=== PATIENT | male | born 1930 | race Caucasian/White ===

== ENCOUNTER 2017-06-12 12:04 | Outpatient (CLI) | payer MEDICARE ==
[2017-06-12 14:16] LABS: Hematocrit 41.3 % (42.0-52.0); Mean Platelet Volume 7.2 fL (7.4-10.4); Red Blood Cell (RBC) Count 4.13 mill/uL (4.70-6.10); White Blood Cell (WBC) Count 6.3 thou/uL (4.8-10.8)
[2017-06-12 14:25] LABS: PTT 35.1 SEC (22.9-36.1); Prothrombin Time 14.2 SEC (12.0-14.7)
[2017-06-12 14:43] LABS: ALT (SGPT) 27 U/L (8-55); AST (SGOT) 22 U/L (5-34); Alkaline Phosphatase 103 U/L (40-150); Anion Gap 10 mmol/L (10-20); BUN (Urea Nitrogen) 17 mg/dL (8.4-25.7); Bilirubin, Total 0.5 mg/dL (0.2-1.2); Calc. Creatinine Clearance 0 mL/min (70-130); Calcium 9.8 mg/dL (7.8-10.44); Carbon Dioxide 29 mmol/L (23-31); Chloride 107 mmol/L (98-107); Estimated GFR-MDRD 73; Protein, Total 6.7 g/dL (5.8-8.1)
== END 2017-06-12 12:05 | disposition home or self-care (01) ==
LOC: LABBT 12:04
PROVIDERS: ATTEND Internal Medicine Cardiovascular Disease
DX: Z01.818 Encounter for other preprocedural examination (principal); R94.30 Abnormal result of cardiovascular function study, unspecified
CPT/HCPCS: 80053; 85027; 85610; 85730; 93005; 93010

== ENCOUNTER → 2017-06-15 | Day surgery (SDC) | payer MEDICARE ==
[2017-06-12 12:26] VITALS: BMI 30.5
[~2017-06-15] MED LIST: Diazepam 5 MG TAB ONE; Heparin 10,000 UNITS/1 ML VIAL ONE; Heparin 1000 UNIT/NS 500ML(OR) 1,000 ML ONE; Iopamidol 370 76% 100 ML VIAL ONE; Nitroglycerin 100MG/250ML BOT 250 ML ONE; Sodium Chloride 0.9% 1,000 ML IV SCH; Verapamil 5 MG/2 ML VIAL ONE
== END ==
LOC: CCL 05:46
PROVIDERS: ATTEND Internal Medicine Cardiovascular Disease
DX: I47.2 Ventricular tachycardia (principal); I10 Essential (primary) hypertension; R07.9 Chest pain, unspecified; E78.5 Hyperlipidemia, unspecified; F32.9 Major depressive disorder, single episode, unspecified; Z88.5 Allergy status to narcotic agent; Z88.8 Allergy status to other drugs, medicaments and biological substances; Z79.899 Other long term (current) drug therapy; Z98.890 Other specified postprocedural states
CPT/HCPCS: 33284; 76942; 80061; 93454; 93798; C1760; C1769; 36415; J1644

== ENCOUNTER 2017-06-19 08:30 | Inpatient (IN) | payer MEDICARE ==
[2017-06-22] MEDS ORDERED: Midazolam HCl 5 mg/5 ml Vial ONE (06:33)
[2017-06-22] MEDS ORDERED: Fentanyl 100 MCG/2 ML VIAL ONE (06:33)
[2017-06-22] MEDS ORDERED: Vecuronium 10 MG VIAL ONE ×2 (06:34→15:40)
[2017-06-22] MEDS ORDERED: Dexmedetomidine 200 MCG/2 ML VIAL ONE (06:34)
[2017-06-22] MEDS ORDERED: Albumin 5% 500 ML ONE ×2 (06:37→10:56)
[2017-06-22] MEDS ORDERED: Heparin 10,000 UNITS/1 ML VIAL 30,000 UNITS in Sodium Chloride 0.9% 1,000 ML FS SCH (06:45)
[2017-06-22] MEDS ORDERED: CEFAZOLIN/Water 2 GM/20 ML SYRINGE ONE (07:21)
[2017-06-22] MEDS ORDERED: FLU VACC TS2017-18 (>65YR) 0.5 ML SYRINGE IM ONE (10:45)
[2017-06-22] MEDS ORDERED: Insulin Regular 300 UNITS/3 ML VIAL ONE (11:19)
--- NOTE | 2017-06-22 12:28 | OP ---
PREOPERATIVE DIAGNOSIS: Coronary artery disease. POSTOPERATIVE DIAGNOSIS: Coronary artery disease. PROCEDURES: Coronary artery bypass graft x5, KIMBALL to a small 1.25 mm LAD, saphenous vein graft small to a 1.25 mm diagonal, saphenous vein graft, slightly better to the 1.5 mm OM 2, saphenous vein carole t to OM3, saphenous vein graft to distal left PDA 1.5 mm. SURGEON: Irving Gilbert M.D. GROCERY CARRIER: Ace Fung M.D. TRANSFUSION: None. PROCEDURE IN DETAIL: After adequate anesthesia had been obtained, the patient was prepped and draped and I initially performed an endovascular vein harvest of the left greater saphenous vein. The vein was rather small in the distal half of the catheter and it was a bifurcated system and so I cut down on the more superficial system and harvested it as well; however, it did not yield much of a vein se gment. Dr. Fung then arrived and did an open greater saphenous vein harvest of the right thigh for 1 conduit and then a harvested vein from the right lower leg at first and second conduit. Simultane ously, I performed a median sternotomy, harvesting the left internal mammary artery. The patient was heparinized, the mammary passed posterior to the thymus gland after being divided distally and treat ed with papaverine. Aorta and right atrium were cannulated. Cardiopulmonary bypass was begun. Vess els were inspected for grafting. The aorta was cross-clamped and a liter of [place] cardioplegic so lution was given. Following this, all distal anastomoses were completed. Partial occluding clamp wa s placed and 3 proximal anastomoses were performed on the aortic root and marked with rings. The OM3 graft was then anastomosed to the side of the left PDA vein graft near the acute margin of the heart . The patient was then weaned from cardiopulmonary bypass, cannulas were removed, and protamine was given systemically. Following this, the mediastinum was inspected for bleeding and two chest drains placed and the sternum was reapproximated with #7 interrupted wire using vancomycin paste on the ster nal edges, platelet-enriched blood, and platelet-poor plasma. Subcutaneous tissue and skin were clos ed in layers.
[2017-06-22] MEDS ORDERED: Norepinephrine 8 MG/0.9% NS 250 ML IVPB PRN (12:37)
[2017-06-22] MEDS ORDERED: Mag-Al 1200 mg/1200 mg/30 ML UDCUP PO PRN (12:37)
[2017-06-22] MEDS ORDERED: DOPamine 400 MG/D5W 250 ML 250 ML IVPB PRN (12:37)
[2017-06-22] MEDS ORDERED: Post-Op Insulin Drip Protocol IVPB ONE (12:37)
[2017-06-22] MEDS ORDERED: hydrALAZINE 20 MG/ML VIAL SLOW IVP PRN (12:37)
[2017-06-22] MEDS ORDERED: Fentanyl 100 MCG/2 ML VIAL SLOW IVP PRN ×2 (12:37)
[2017-06-22] MEDS ORDERED: Hetastarch 6% 500 ML 500 ML IVPB PRN (12:37)
[2017-06-22] MEDS ORDERED: Bisacodyl 10 MG SUPP PR PRN (12:37)
[2017-06-22] MEDS ORDERED: Guaifenesin DM 100-10/5 ML UDCUP PO PRN (12:37)
[2017-06-22] MEDS ORDERED: Morphine 4 MG/ML VIAL SLOW IVP PRN (12:37)
[2017-06-22] MEDS ORDERED: Bisacodyl 5 MG TAB PO PRN (12:37)
[2017-06-22] MEDS ORDERED: Dextrose 50% Abboject 50 ML SYRINGE SLOW IVP PRN (12:50)
[2017-06-22] MEDS ORDERED: Dextrose 5% in Water 1,000 ML IV PRN (12:50)
[2017-06-22 13:52] LABS: PTT 34.8 SEC (22.9-36.1); Prothrombin Time 17.6 SEC (12.0-14.7)
[2017-06-22 13:53] LABS: Oxyhemoglobin 95.4 % (94.0-97.0); Sodium 142 mmol/L (135-148)
[2017-06-22 13:59] LABS: Mechanical Tidal Volume 500 ml; Mode SIMV.PSV; Modified Allen's Test NOT DONE; Pressure Support 10 cmH2O; Vent YES
[2017-06-22 14:05] LABS: Anion Gap 5 mmol/L (10-20); BUN (Urea Nitrogen) 19 mg/dL (8.4-25.7); Calc. Creatinine Clearance 84 mL/min (70-130); Calcium 8.2 mg/dL (7.8-10.44); Carbon Dioxide 26 mmol/L (23-31); Chloride 114 mmol/L (98-107); Estimated GFR-MDRD 87
[2017-06-22] MEDS ORDERED: niCARdipine HCl 50 MG in Sodium Chloride 0.9% 250 ML 230 ML IVPB PRN (14:15)
[2017-06-22 14:17] LABS: #Eosinphils 0.1 thou/uL (0.0-0.7); #Lymphocytes 1.2 thou/uL (1.20-3.40); #Monocytes 0.8 thou/uL (0.11-0.59); #Neutrophils 6.4 thou/uL (1.40-6.50); %Basophils 0.5 % (0.0-1.0); %Lymphocytes 14.3 % (21.0-51.0); %Monocytes 9.8 % (0.0-10.0); Hematocrit 29.4 % (42.0-52.0); Mean Platelet Volume 6.9 fL (7.4-10.4); Red Blood Cell (RBC) Count 2.95 mill/uL (4.70-6.10); White Blood Cell (WBC) Count 8.6 thou/uL (4.8-10.8)
[2017-06-22] MEDS: Sodium Chloride 0.9% 1,000 ML IV SCH ×2 (14:21→21:10)
[2017-06-22] MEDS: Potassium Chloride 20 MEQ/100 ML PREMIX BAG IVPB PRN ×2 (14:21→20:44)
[2017-06-22] MEDS: Insulin Regular 300 UNITS/3 ML VIAL SC PRN ×3 (15:10→23:21)
[2017-06-22] MEDS: CEFAZOLIN/Water 2 GM/20 ML SYRINGE SLOW IVP SCH ×2 (15:11→23:21)
[2017-06-22 15:19] LABS: Oxyhemoglobin 97.5 % (94.0-97.0); Sodium 141 mmol/L (135-148)
[2017-06-22 15:19] LABS: Oxyhemoglobin 97.5 % (94.0-97.0); Sodium 141 mmol/L (135-148)
[2017-06-22 15:19] LABS: Base Excess 0.8 mEq/L (0 (+/- 2.5)); O2 Content (venous) 9.6 VOL% (12.5-17.5); pH (venous) 7.38 (7.35-7.45)
[2017-06-22 15:19] LABS: Oxyhemoglobin 97.8 % (94.0-97.0); Sodium 140 mmol/L (135-148)
[2017-06-22 15:19] LABS: Oxyhemoglobin 97.7 % (94.0-97.0); Sodium 140 mmol/L (135-148)
[2017-06-22] MEDS ORDERED: Nitroglycerin 50 MG/250 ML BOT ONE (15:40)
[2017-06-22] MEDS ORDERED: Lidocaine 1% PF 5 ML VIAL ONE (15:40)
[2017-06-22] MEDS ORDERED: Metoprolol Tartrate 5 MG/5 ML VIAL ONE (15:40)
[2017-06-22] MEDS ORDERED: PHENYLEPHRINE-NS 100 MCG/ML 10 ML SYRINGE ONE (15:40)
[2017-06-22] MEDS ORDERED: Aminocaproic Acid 5 GM/20 ML VIAL ONE (15:40)
[2017-06-22] MEDS ORDERED: Heparin 30,000 units/30 ml VIAL ONE (15:40)
--- NOTE | 2017-06-22 16:17 | RAD ---
SINGLE VIEW OF THE CHEST: Comparison: 02-06-17 History: Status post open heart surgery. FINDINGS: Single view of the chest shows an enlarged but stable cardiomediastinal silhouette. The patient is st atus post sternotomy. The pacemaker is unchanged in position. The patient is status post CABG. There is a right subclavian central venous catheter with its tip in the superior vena cava. An endotracheal tube is seen with its tip at the lower border of the clavicles. A mediastinal drain is seen. There a ppears to be a small left pleural effusion. IMPRESSION: 1. Appropriate position of lines and tubes status post sternotomy. 2. Small left pleural effusion. POS: [facility]
[2017-06-22] MEDS: HYDROcodone/Acetaminophen 5/325 mg Tablet PO PRN ×3 (18:19→22:09)
[2017-06-22 18:23] LABS: Hematocrit 32.1 % (42.0-52.0)
[2017-06-22 18:23] LABS: Mode CPAP; Modified Allen's Test NOT DONE; Oxyhemoglobin 95.4 % (94.0-97.0); Sodium 141 mmol/L (135-148); Vent YES
[2017-06-22] MEDS: Famotidine/PF 20 mg/2ml Vial SLOW IVP SCH (20:14)
[2017-06-23] MEDS: HYDROcodone/Acetaminophen 5/325 mg Tablet PO PRN ×5 (01:47→21:19)
[2017-06-23] MEDS: Sodium Chloride 0.9% 1,000 ML IV SCH ×2 (02:03→09:00)
[2017-06-23 04:50] LABS: #Lymphocytes 1.3 thou/uL (1.20-3.40); %Basophils 0.1 % (0.0-1.0); %Lymphocytes 12.3 % (21.0-51.0); %Monocytes 9.5 % (0.0-10.0); Hematocrit 29.2 % (42.0-52.0); Mean Platelet Volume 7.4 fL (7.4-10.4); White Blood Cell (WBC) Count 10.3 thou/uL (4.8-10.8)
[2017-06-23 05:05] LABS: Anion Gap 8 mmol/L (10-20); BUN (Urea Nitrogen) 23 mg/dL (8.4-25.7); Calc. Creatinine Clearance 64 mL/min (70-130); Calcium 8.1 mg/dL (7.8-10.44); Carbon Dioxide 23 mmol/L (23-31); Chloride 112 mmol/L (98-107); Estimated GFR-MDRD 64
[2017-06-23] MEDS: Insulin Regular 300 UNITS/3 ML VIAL SC PRN ×4 (05:14→17:13)
--- NOTE | 2017-06-23 08:04 | RAD ---
PORTABLE SEMI UPRPIGHT CHEST: History: 86-year-old male with post op open heart. Comparison: 06-22-17 FINDINGS: Poor inspiration. Endotracheal tube has been removed. Right subclavian catheter and chest tubes in pl radha. Stable patchy bibasilar pleural and parenchymal opacity changes, worse on the left side, evidenc e for post-operative change. No pneumothorax or confluent pneumonia, or other acute process. IMPRESSION: Stable post-operative changes. Continued short term follow up. POS: [facility]
[2017-06-23] MEDS: Aspirin 325 MG TAB PO SCH (08:07)
[2017-06-23] MEDS: CEFAZOLIN/Water 2 GM/20 ML SYRINGE SLOW IVP SCH (08:09)
[2017-06-23] MEDS: Famotidine/PF 20 mg/2ml Vial SLOW IVP SCH (08:10)
[2017-06-23] MEDS: Ondansetron HCl/PF 4 MG/2 ML Vial IVP PRN (08:19)
[2017-06-23 09:20] LABS: Mode OR ABG; Vent YES
[2017-06-23 09:22] LABS: Mode OR ABG; Vent YES
[2017-06-23 09:23] LABS: Mode OR ABG; Vent YES
[2017-06-23 09:26] LABS: Mode OR ABG; Vent YES
[2017-06-23 09:29] LABS: Mode OR ABG; Oxyhemoglobin 97.5 % (94.0-97.0); Sodium 143 mmol/L (135-148); Vent YES
[2017-06-23 09:38] LABS: Oxyhemoglobin 96.4 % (94.0-97.0); Sodium 142 mmol/L (135-148)
[2017-06-23 09:40] LABS: Mode OR ABG; Vent YES
[2017-06-23] MEDS ORDERED: levETIRAcetam 500 MG TAB PO SCH (21:00)
[2017-06-23] MEDS ORDERED: Donepezil HCl 10 MG TAB PO SCH (21:00)
[2017-06-23] MEDS: ALPRAZolam 1 MG TAB PO PRN (21:20)
[2017-06-23] MEDS: Atorvastatin Calcium 40 MG TAB PO SCH (21:20)
[2017-06-24] MEDS: Potassium Chloride 10 MEQ TAB PO SCH (08:57)
[2017-06-24] MEDS: Aspirin 325 MG TAB PO SCH (08:57)
[2017-06-24] MEDS: Furosemide 40 MG TAB PO SCH (08:57)
[2017-06-24] MEDS: Metoprolol Tartrate 25 MG TAB PO SCH ×2 (08:57→21:06)
[2017-06-24] MEDS: Tamsulosin HCl 0.4 MG CAP PO SCH (08:58)
[2017-06-24] MEDS ORDERED: clonazePAM 0.5 MG TAB PO SCH (09:00)
--- NOTE | 2017-06-24 16:03 | PRG ---
DATE OF SERVICE: 06/24/2017 SUBJECTIVE: Mr. Keen is doing well. He has been transferred from the ICU to the surveillance monitor [facility]. He has been sitting up in the chair for 2 hours. OBJECTIVE: VITAL SIGNS: Blood pressure 152/78, pulse 86 and temperature 98.7. LUNGS: Clear to auscultation. HEART: Regular rate and rhythm. ABDOMEN: Soft, nontender and nondistended. EXTREMITIES: No edema. IMPRESSION: 1. Coronary artery disease. 2. Status post bypass surgery. RECOMMENDATIONS: Atorvastatin and aspirin will be added. Continue low dose of beta-norman therapy. Ambulate incentive spirometry in rehab.
--- NOTE | 2017-06-24 16:27 | CON ---
DATE OF CONSULTATION: 06/22/2017 REASON FOR CONSULTATION: Assist with cardiac management postop bypass surgery. HISTORY OF PRESENT ILLNESS: Mr. Keen is a very pleasant 86-year-old gentleman with recent angio th at showed a severe 3-vessel disease. He is seen and evaluated by Dr. Irving Gilbert and underwent bypas s surgery today. He is currently intubated. PAST MEDICAL HISTORY: CAD, sick sinus syndrome status post pacemaker, sleep apnea. FAMILY HISTORY: Positive for CAD. MEDICATIONS: Advair, Xanax, Prilosec, amlodipine. ALLERGIES: CODEINE. REVIEW OF SYSTEMS: Ten-point review of systems is reviewed and is as above negative. PHYSICAL EXAMINATION: GENERAL: Patient is a pleasant male who is in no acute distress. The patient appears his stated age . Currently intubated and sedated. VITAL SIGNS: Blood pressure 90/70, pulse 80, respirations 20. NEUROLOGIC: The patient is alert and oriented times 3 with no focal neurologic deficits. HEENT: Sclerae without icterus. Mouth has moist mucous membranes with normal pallor. NECK: No JVD. Carotid upstroke brisk. No bruits bilaterally. LUNGS: Clear to auscultation with unlabored respirations. BACK: No scoliosis or kyphosis. CARDIAC: Regular rate and rhythm with normal S1 and S2. No S3 or S4 noted. No significant rubs, mu rmurs, thrills, or gallops noted throughout the precordium. PMI is not displaced. There is no maggy ternal heave. ABDOMEN: Soft, nontender, nondistended. No peritoneal signs present. No hepatosplenomegaly. No ab normal striae. EXTREMITIES: 2+ femoral and 2+ dorsalis pedis pulses. No cyanosis, clubbing, or edema. SKIN: No gross abnormalities. IMPRESSION: 1. Severe coronary artery disease. 2. Status post bypass surgery. RECOMMENDATIONS: 1. Continue routine ICU care. 2. Add beta norman therapy and statin therapy when stable and extubated. 3. We will follow with you.
--- NOTE | 2017-06-24 20:07 | CON ---
DATE OF CONSULTATION: 06/24/2017 REFERRING PHYSICIAN: Irving Gilbert M.D. REASON FOR CONSULTATION: Altered mental status. HISTORY OF PRESENT ILLNESS: Mr. Keen is a pleasant 86-year-old male is being consulted f or evaluation of altered mental status. History is obtained from who was present at bedside. Maya berry reports that he was found to have coronary blockages for which he has undergone a 5-vessel bypass surgery. On yesterday while in ICU, he was given Woodstock for pain. After having Woodstock, he started rinaldi ving hallucinations, where he saw people coming in with guns and trying to steal money and embezzle p eople. This continued on for all night. It has improved over time. She still feels that he is slig htly confused, but it is better compared to last night. She said that he has had episodes of confusi on when he was given Woodstock and asked that he is not given Woodstock any more. Currently, patient does no t complaint of any headache, vision changes, numbness, tingling. PAST MEDICAL HISTORY: Significant for hypertension, coronary artery disease, hyperlipidemia, GERD, d epression. PAST SURGICAL HISTORY: Significant for right knee replacement, left knee surgery, pacemaker placemen t and most recent coronary artery bypass surgery. SOCIAL HISTORY: Denies smoking, alcohol use, or illicit drug use. He is . FAMILY HISTORY: Noncontributory. CURRENT MEDICATIONS: Please review MAR. ALLERGIES: Include MORPHINE AND CODEINE. REVIEW OF SYSTEMS: As mentioned in the HPI, otherwise negative. PHYSICAL EXAMINATION: VITAL SIGNS: Blood pressure of 129/60, pulse of 89, temperature of 97.7, respirations of 18, O2 sats of 95% on room air. GENERAL: Well-developed, well-nourished male, in no apparent distress. RESPIRATORY: Clear to auscultation bilaterally. CARDIOVASCULAR: Regular rate and rhythm. NEUROLOGIC: Mental status: The patient is awake, alert, oriented x3. Speech and language: Fluent speech. Cranial nerves: Pupils are 3 mm and reactive. Visual castellanos are intact. External muscles are intact. No nystagmus. Face is symmetric. Motor exam showed normal tone and bulk with 5/5 stren gth in both lower extremities. Sensory: Sensation is intact and symmetric. Deep tendon reflexes 1- 2+ reflexes in both upper and lower extremities. Babinski: Plantar responses flexion bilaterally. LABORATORY DATA: Reviewed, which included CBC, BMP, which is significant for hemoglobin of 9.8, crys tocrit 29.2, glucose of 136, otherwise unremarkable. IMPRESSION: 1. Altered mental status, likely medication induced. 2. Recent coronary artery bypass graft surgery. Mr. Keen is a pleasant 86-year-old male who has undergone coronary artery bypass graft head [facility] and had an episode of confusion after he was given Woodstock. He has had reaction to Woodstock in the past with similar episodes of confusion that was, according to . At this time, this episode is l ikely medication induced. I do not think that Keppra is the cause for his symptoms. I would restart him back on Keppra at his home dose. No further neurological workup needed from my standpoint. Thank you for consultation.
[2017-06-24] MEDS: levETIRAcetam 500 MG TAB PO SCH (21:03)
[2017-06-24] MEDS: Atorvastatin Calcium 40 MG TAB PO SCH (21:03)
[2017-06-24] MEDS: ALPRAZolam 1 MG TAB PO PRN (21:04)
[2017-06-24] MEDS: Acetaminophen 325 MG TAB PO PRN (21:06)
--- NOTE | 2017-06-24 21:50 | PRG ---
DATE OF SERVICE: 06/23/2017 SUBJECTIVE: Mr. Keen is doing well. He continues to have the chest tube in place. He is still in the ICU, but has been extubated. OBJECTIVE: VITAL SIGNS: Blood pressure 120/70, pulse 80, respirations 20. LUNGS: Clear to auscultation. CARDIAC: Regular rate and rhythm. ABDOMEN: Soft, nontender, nondistended. EXTREMITIES: No edema. IMPRESSION: 1. Severe coronary artery disease. 2. Status post bypass surgery. RECOMMENDATIONS: 1. Add beta norman therapy and statin treatment. 2. Up in the chair t.i.d.
[2017-06-25] MEDS: levETIRAcetam 500 MG TAB PO SCH ×2 (07:58→21:03)
[2017-06-25] MEDS: Tamsulosin HCl 0.4 MG CAP PO SCH (07:58)
[2017-06-25] MEDS: Aspirin 325 MG TAB PO SCH (07:58)
[2017-06-25] MEDS: Metoprolol Tartrate 25 MG TAB PO SCH ×2 (07:59→21:05)
[2017-06-25] MEDS: Potassium Chloride 10 MEQ TAB PO SCH (07:59)
[2017-06-25] MEDS: Furosemide 40 MG TAB PO SCH (07:59)
[2017-06-25] MEDS: Ondansetron HCl/PF 4 MG/2 ML Vial IVP PRN (09:15)
[2017-06-25 14:51] VITALS: BMI 29.4
[2017-06-25] MEDS ORDERED: Furosemide 20 MG/2 ML VIAL SLOW IVP SCH (16:30)
--- NOTE | 2017-06-25 17:15 | PRG ---
DATE OF SERVICE: 06/25/2017 SUBJECTIVE: Mr. Keen has had increased confusion. His states he is allergic to NARCOTICS. Lizbeth merrill was given a narcotic last evening. She attributed to this confusion to the medication. He denies chest pain or pressure. He is not ambulating today with physical therapy. He remains in sinus rhyth m. OBJECTIVE: VITAL SIGNS: Blood pressure 147/62, pulse 98, temperature 98.3. LUNGS: Clear to auscultation. CARDIAC: Regular rate and rhythm. ABDOMEN: Soft, nontender, nondistended. EXTREMITIES: No edema. IMPRESSION: 1. Severe coronary artery disease. 2. Status post bypass surgery. 3. Delirium. RECOMMENDATIONS: Delirium likely multifactorial given his age of 86 in addition to a recent narcotic use. Narcotic had been discontinued with stress ambulation. Rehab has been consulted and has evalu ated Mr. Keen today with their conclusion pending.
[2017-06-25] MEDS: Atorvastatin Calcium 40 MG TAB PO SCH (21:01)
[2017-06-25] MEDS: ALPRAZolam 1 MG TAB PO PRN (21:24)
[2017-06-26] MEDS: Aspirin 325 MG TAB PO SCH (08:09)
[2017-06-26] MEDS: levETIRAcetam 500 MG TAB PO SCH ×2 (08:10→20:22)
[2017-06-26] MEDS: Furosemide 40 MG TAB PO SCH (08:10)
[2017-06-26] MEDS: Losartan Potassium 25 MG TAB PO SCH (08:10)
[2017-06-26] MEDS: Potassium Chloride 10 MEQ TAB PO SCH (08:10)
[2017-06-26] MEDS: Metoprolol Tartrate 25 MG TAB PO SCH (08:10)
[2017-06-26] MEDS: Tamsulosin HCl 0.4 MG CAP PO SCH (08:10)
[2017-06-26] MEDS ORDERED: Amiodarone HCl 150 MG, Admixture Fee 1 EACH in Dextrose 5% in Water 100 ML IVPB SCH ×3 (19:30)
[2017-06-26] MEDS: Amiodarone HCl 450 MG, Admixture Fee 1 EACH in Dextrose 5% in Water 250 ML IVPB SCH ×3 (19:55)
[2017-06-26 20:17] LABS: ALT (SGPT) 12 U/L (8-55); AST (SGOT) 27 U/L (5-34); Alkaline Phosphatase 81 U/L (40-150); Bilirubin, Direct 0.4 mg/dL (0.1-0.3); Bilirubin, Total 0.8 mg/dL (0.2-1.2); Magnesium 1.7 mg/dL (1.6-2.6); Protein, Total 5.6 g/dL (5.8-8.1)
[2017-06-26] MEDS: Atorvastatin Calcium 40 MG TAB PO SCH (20:22)
[2017-06-26] MEDS: Metoprolol Tartrate 50 MG TAB PO SCH (20:22)
[2017-06-26 20:38] LABS: Anion Gap 11 mmol/L (10-20); BUN (Urea Nitrogen) 28 mg/dL (8.4-25.7); Calc. Creatinine Clearance 55 mL/min (70-130); Calcium 8.8 mg/dL (7.8-10.44); Carbon Dioxide 25 mmol/L (23-31); Chloride 104 mmol/L (98-107); Estimated GFR-MDRD 53
[2017-06-27] MEDS: Amiodarone HCl 450 MG, Admixture Fee 1 EACH in Dextrose 5% in Water 250 ML IVPB SCH ×6 (02:26→20:06)
[2017-06-27] MEDS: Metoprolol Tartrate 50 MG TAB PO SCH ×2 (09:56→21:01)
[2017-06-27] MEDS: Losartan Potassium 25 MG TAB PO SCH (09:56)
[2017-06-27] MEDS: Aspirin 325 MG TAB PO SCH (09:56)
[2017-06-27] MEDS: Potassium Chloride 10 MEQ TAB PO SCH (09:56)
[2017-06-27] MEDS: Furosemide 40 MG TAB PO SCH (09:56)
[2017-06-27] MEDS: Tamsulosin HCl 0.4 MG CAP PO SCH (09:57)
[2017-06-27] MEDS: levETIRAcetam 500 MG TAB PO SCH ×2 (09:57→21:01)
[2017-06-27] MEDS: Atorvastatin Calcium 40 MG TAB PO SCH (21:01)
[2017-06-28] MEDS: ALPRAZolam 1 MG TAB PO PRN (01:37)
[2017-06-28] MEDS: Potassium Chloride 10 MEQ TAB PO SCH (09:13)
[2017-06-28] MEDS: Losartan Potassium 25 MG TAB PO SCH (09:14)
[2017-06-28] MEDS: levETIRAcetam 500 MG TAB PO SCH ×2 (09:14→19:56)
[2017-06-28] MEDS: Metoprolol Tartrate 50 MG TAB PO SCH ×2 (09:14→19:57)
[2017-06-28] MEDS: Aspirin 325 MG TAB PO SCH (09:14)
[2017-06-28] MEDS: Tamsulosin HCl 0.4 MG CAP PO SCH (09:14)
[2017-06-28] MEDS: Furosemide 40 MG TAB PO SCH (09:38)
[2017-06-28] MEDS: Amiodarone HCl 450 MG, Admixture Fee 1 EACH in Dextrose 5% in Water 250 ML IVPB SCH ×3 (12:52)
--- NOTE | 2017-06-28 13:49 | PRG ---
DATE OF SERVICE: 06/28/2017 SUBJECTIVE: I was called back to the room to see Mr. Keen as his was not present when I saw him earlier this morning. Mr. Keen's is very upset because he apparently had some hallucinations last night. She says that he did not know who she was. Mr. Keen cannot hear. With his hearing aids in this morning, I have to literally scream for him to hear anything that I am saying. On questioning, he is oriented to person, place and time at this point. He has no complaints about last night and does not recall any of his interactions with his during the night. She states that she has had to cover up the television because the reflections in the television bother him. He did state that he had some anxiety in the middle of the night due to lights being off and not being able to see. He was given Xanax and apparently this facilitated his hallucinations during the night. I have reassured her that I will go through his medication list and remove all pain medications. She says they do not "dope up" at home, but he does take Xanax on a fairly regular basis. I will leave his Xanax as a p.r.n. She also was upset and wants to discuss the functions of the charge nurse and I told her that I did not have the time to discuss the inner workings of the hospital with her, which made her more upset. She is going to discuss this with the hospital administration at some point. I think his hallucinations are probably sundowning. I have encouraged her to leave the lights on in the bathroom so that he has a night light. Getting him up and moving around will help and getting him out of the hospital is actually the best thing for him at this point. He will not completely improve until he is home back in his usual environment [facility]
[2017-06-28] MEDS: Atorvastatin Calcium 40 MG TAB PO SCH (19:56)
[2017-06-29] MEDS: Losartan Potassium 25 MG TAB PO SCH (09:06)
[2017-06-29] MEDS: Aspirin 325 MG TAB PO SCH (09:06)
[2017-06-29] MEDS: Metoprolol Tartrate 50 MG TAB PO SCH ×2 (09:07→20:03)
[2017-06-29] MEDS: levETIRAcetam 500 MG TAB PO SCH ×2 (09:07→20:04)
[2017-06-29] MEDS: Tamsulosin HCl 0.4 MG CAP PO SCH (09:07)
--- NOTE | 2017-06-29 13:30 | CON ---
DICTATED BY: Lissy Awan Nurse Practitioner DATE OF CONSULTATION: 06/29/2017 CONSULTING PHYSICIAN: Dr. Miguel Holliday REASON FOR CONSULTATION: Sustained ventricular tachycardia. HISTORY OF PRESENT ILLNESS: Mr. Keen is a pleasant 86-year-old gentleman who recently underwent coronary artery bypass grafting on 06/22/2017 after recent coronary angio which revealed severe 3-vessel disease. After his bypass surgery , he went into sustained monomorphic ventricular tachycardia on 06/26/2017 and was started on IV amiodarone. He continued on an amiodarone drip for 2 days and was transitioned to oral amiodarone on 06/28/2017. Of note, the patient has undergone pacemaker implantation earlier this year secondary to sinus node dysfunction and also has history of a first degree AV block. He has also had some postoperative complications of delirium and is currently mentally quite altered and sleeping during the examination. The is present at bedside and was able to answer all questions regarding the recent events and patient care. Review of symptoms was limited given the patient's inability to answer questions given his cognitive deficits. The acknowledged that the patient had not had this arrhythmia prior to his recent past. The pacemaker did find sustained ventricular tachycardia, 1 episode, which prompted the coronary angio which then led to his bypass surgery. The patient has had a stroke in the past , but has not had any recent neurologic events. PAST MEDICAL HISTORY: 1. Severe coronary artery disease. 2. Sick sinus syndrome, status post pacemaker implantation. 3. First degree AV block. 4. Stroke, left-sided weakness. 5. Sleep apnea. FAMILY HISTORY: Positive for coronary artery disease. ALLERGIES: CODEINE and MORPHINE ( states this is an adverse reaction with mental changes). MEDICATIONS: Include amiodarone 400 mg p.o. b.i.d., aspirin 325 mg daily, atorvastatin 40 mg p.o. at bedtime, Keppra 500 mg p.o. b.i.d., losartan 50 mg p.o. daily, metoprolol 50 mg p.o. b.i.d., Metamucil daily. REVIEW OF SYSTEMS: Ten point review of systems was conducted and is negative with the exception of what is mentioned in the HPI. Review of systems was conducted with who is at bedside and was able my questions for most items. PHYSICAL EXAMINATION: VITAL SIGNS: Most recent vital signs; 98.3 degrees Fahrenheit, heart rate 75, respirations 16, oxygen saturation 96% on 4 liters of oxygen via nasal cannula, blood pressure 160/82. GENERAL: The patient is a well-nourished male who is currently sleeping. He appears his stated age. NEUROLOGIC: The patient is currently sleeping, but has had recent hallucinations and acute delirium in the postoperative phase. Unable to do neurologic exam at this time. HEENT: Mucous membranes are moist. Trachea is midline. NECK: Supple. There is no jugular venous distention. There are no carotid bruits. PULMONARY: Lungs are clear to auscultation bilaterally without crackles, wheezes or rhonchi. There is good bilateral excursion. CARDIOVASCULAR: Regular rate and rhythm without murmurs, rubs or gallops. PMI is nondisplaced. ABDOMEN: Soft to palpation without masses or hepatosplenomegaly. INTEGUMENTARY: Device is palpable at the left infraclavicular fossa. The site is well healed without evidence of complication including swelling, streaking or bruising. EXTREMITIES: Palpable pulses bilaterally. Extremities are warm and dry without cyanosis, clubbing or edema. DATABASE: Lab results are from 06/23/2017; WBC 10.3, hemoglobin 9.8, hematocrit 29.2, platelet count 145. PT 17.6, INR 1.4. Chemistry from 2016 reveals sodium 136, potassium 4.1, chloride 104, CO2 25, BUN is 28, creatinine is 1.29, ALT is 12, AST is 27. Chest x-ray on the 06/23/2017 revealed a stable chest with no acute postoperative changes, most recent LVEF estimated at 56% from 06/2011. DEVICE INTERROGATION: The patient has an Advisa DR MRI compatible device. Date of implant was 02/06/2017. At this point, the device is functioning normally with good battery longevity and the lead impedance and capture thresholds are within a normal range. The patient does have documented sustained monomorphic ventricular tachycardia episodes on his interrogation. IMPRESSION: 1. Recurrent sustained monomorphic ventricular tachycardia. This re-occurred 4 days after coronary artery bypass grafting surgery. The patient was initially placed on IV amiodarone and has now transitioned to p.o. dosing. 2. Severe coronary artery disease, now stable after bypass surgery. 3. Acute delirium and confusion. 4. First degree atrioventricular block according to pacemaker interrogation. 5. Medtronic pacemaker in situ, functioning normally. RECOMMENDATIONS: Given the VT epside 4 days out from a recent bypass graft surgery, I think it is reasonable to pursue and recommend an EP study. If VT is inducible we will consider upgrading his current pacemaker to an ICD defibrillator based on MADIT II trila. [place] get LVEF reevaluated as wel by ECHO. If VT is not inducible, would recommend the patient have a LifeVest worn for 3 months and reevaluate. The is in agreement with this plan. The risks and benefits of an EP study and device placement were discussed. The risks for EP study include hematoma or bleeding at the groin access site, bleeding into the pericardial sac, damage to the blood vessel tissues and nerves at the access site, damage to the heart tissue. Complications included with a pacemaker defibrillator implantation include pain, swelling at the site, damage to surrounding tissues, nerves, possible pneumothorax requiring additional chest tube placement, perforation of the heart, arrhythmias, and . The patient's understands the risks and benefits and wishes to proceed with an EP study and upgrade to ICD, BiV if needed based on LVEF. Thank you allowing us to participate in the patient's care. Further suggestions acting as scribe for Dr. Floresita de jesus. [facility]
[2017-06-29] MEDS ORDERED: Heparin 1000 UNIT/NS 500ML(OR) 500 ML ONE (14:33)
--- NOTE | 2017-06-29 15:22 | CON ---
This is Lissy LAST acting as scribe for Dr. Jermain Arroyo DATE OF CONSULTATION: 06/29/2017 at 11:34 a.m. ELECTROPHYSIOLOGY CONSULTATION REFERRING PHYSICIAN: Miguel Holliday M.D. REASON FOR CONSULTATION: Sustained ventricular tachycardia. HISTORY OF PRESENT ILLNESS: Mr. Keen is an 86-year-old male whom we were consulted for given his s ustained ventricular tachycardia. Patient is currently undergoing evaluation for altered mental stat us after recent bypass surgery and history and discussion with the who was at bedside during the evaluation. According to his , the patient initially had a pacemaker implant earlier this year for sick sinus syndrome and was found to have severe three-vessel disease with recent coronary angiog mike. He has undergone a coronary artery bypass grafting on 06/22/[address] Gilbert. Since then, his recovery was initially going very well. He was extubated and has had some delirium issues that have evolved after his bypass. On the 06/26/2017, patient went into sustained monomorphic ventricular ta chycardia and was started on IV amiodarone, which continued for 2 days. He is now currently off the IV amiodarone and was started on oral 400 mg twice a day on 06/28/2017 in the evening. His device wa s interrogated on 06/27/2017 and the report is in the chart. The patient also has a history of first -degree AV block. PAST MEDICAL HISTORY: Include, 1. Severe coronary artery disease. 2. Sick sinus syndrome. 3. Medtronic Advisa DR MRI compatible device in situ. 4. First degree AV block. 5. Sleep apnea. 6. Coronary artery bypass grafting was performed at 06/22/2017. 7. CVA with residual left-sided weakness. ALLERGIES: Include narcotics (adverse reaction according to ). CURRENT MEDICATIONS: List includes Tylenol as needed, Maalox as needed, DuoNeb as needed, Xanax as n eeded, amiodarone 400 mg p.o. b.i.d., aspirin 325 mg p.o. daily, Lipitor 40 mg p.o. at bedtime, Keppr a 500 mg p.o. b.i.d., Cozaar 50 mg p.o. daily, metoprolol 50 mg p.o. b.i.d., Zofran 4 mg as needed, I V sertraline 100 mg p.o. daily, tamsulosin 0.4 mg p.o. daily. SOCIAL HISTORY: According to the , the patient denies tobacco, alcohol use or drug use. He is m arried. FAMILY HISTORY: Noncontributory. REVIEW OF SYSTEMS: Twelve-point review of systems was conducted and is negative with the exception o f what is mentioned in the HPI. The was the source for the review of systems given the patient' s currently delirium. PHYSICAL EXAMINATION: VITAL SIGNS: Include temperature 98.3 degrees Fahrenheit, pulse 75, respirations 20, oxygen saturati on 96% on 4 liters via nasal cannula, blood pressure is 160/82. HEENT: No vision changes or speech changes. CARDIOVASCULAR: Unaware of chest pain or palpitations. denies any progressive swelling in the extremities. PULMONARY: Denies shortness of breath. Recent respiratory illness for productive cough. DICTATION ENDED
[2017-06-29] MEDS: Atorvastatin Calcium 40 MG TAB PO SCH (20:03)
[2017-06-30] MEDS ORDERED: Propofol 200 MG/20 ML VIAL ONE (11:07)
[2017-06-30] MEDS ORDERED: PHENYLEPHRINE-NS 100 MCG/ML 10 ML SYRINGE ONE (11:07)
[2017-06-30] MEDS ORDERED: Fentanyl 100 MCG/2 ML VIAL ONE (13:36)
[2017-06-30] MEDS ORDERED: Heparin 1000 UNIT/NS 500ML(OR) 500 ML ONE (13:48)
[2017-06-30] MEDS ORDERED: Phenylephrine 10 MG/NS 250 ML 250 ML ONE (14:06)
[2017-06-30] MEDS ORDERED: Ondansetron HCl/PF 4 MG/2 ML Vial IVP PRN ×2 (15:24→18:45)
[2017-06-30] MEDS ORDERED: Promethazine HCl 25 MG/ML VIAL SLOW IVP PRN (15:24)
[2017-06-30] MEDS ORDERED: Promethazine HCl 25 MG/ML VIAL IM PRN (15:24)
[2017-06-30] MEDS: Aspirin 325 MG TAB PO SCH (18:34)
[2017-06-30] MEDS: Losartan Potassium 25 MG TAB PO SCH (18:34)
[2017-06-30] MEDS: Tamsulosin HCl 0.4 MG CAP PO SCH (18:35)
[2017-06-30] MEDS: Metoprolol Tartrate 50 MG TAB PO SCH ×2 (18:36→20:15)
[2017-06-30] MEDS: levETIRAcetam 500 MG TAB PO SCH ×2 (18:37→20:16)
[2017-06-30] MEDS ORDERED: Silver Sulfadiazine 1% Cream 50 GM JAR TOP PRN (18:45)
[2017-06-30] MEDS ORDERED: Mag-Al 1200 mg/1200 mg/30 ML UDCUP PO PRN (18:45)
[2017-06-30] MEDS ORDERED: Bisacodyl 5 MG TAB PO PRN (18:45)
[2017-06-30] MEDS ORDERED: Bisacodyl 10 MG SUPP PR PRN (18:45)
[2017-06-30] MEDS ORDERED: diphenhydrAMINE 25 MG CAP PO PRN (18:45)
[2017-06-30] MEDS ORDERED: Nitroglycerin 0.4 MG TAB (25 Tab Bottle) SL PRN (18:45)
[2017-06-30] MEDS: Atorvastatin Calcium 40 MG TAB PO SCH (20:14)
[2017-06-30] MEDS: Acetaminophen 325 MG TAB PO PRN (20:15)
--- NOTE | 2017-06-30 20:26 | CCLSPC ---
DATE OF PROCEDURE: 06/30/2017 REFERRING PHYSICIAN: Miguel Holliday M.D. REASON FOR PROCEDURE: Mr. Keen is an 86-year-old man with prior history of coronary artery disease , nonsustained ventricular tachycardia, who underwent a coronary artery bypass graft surgery due to m ultivessel coronary artery disease this admission. He had sustained ventricular tachyarrhythmia requ iring amiodarone loading over 4 days after the bypass surgery, here for EP surgery and also amiodaron e loading. PROCEDURE IN DETAIL: The patient received deep sedation per Anesthesia specialist. After adequate l evel of sedation achieved, the left femoral vein was prepped, draped, and anesthetized using subcutan eous lidocaine and with ultrasound guidance, the left femoral vein was accessed with a multipurpose n eedle. A 6-Albanian short sheath was introduced through which a 6-Albanian quadripolar catheter was adva nced to the His bundle, the right atrium, and right ventricle position. Pacing, mapping, and recordi ng were obtained in each location. The following findings were noted. Baseline cycle of 622, NJ 112, QRS 95, QT 416, AH 46, HV 43 marcell seconds. The ventricular ------ study was performed using 600 milliseconds drivetrain and 400 millis econds drivetrain with up to 3 ------ which were decremented to the refractory period. Ventricular E RP was established at 600/220 milliseconds. The nonsustained ventricular tachycardia was seen, but s pontaneous termination was noted in each occasion. No VA conduction was seen. Following that case, the pacemaker function was verified. CONCLUSION: 1. Nonsustained ventricular tachycardia inducible after amiodarone loading only. 2. Echo done reveals LVEF of 50%. 3. For now, continue amiodarone loading, consider LifeVest, and wean off amiodarone in 2-[address]-bypass surgery and re-evaluate at that time. POS: [facility]
[2017-06-30] MEDS: Temazepam 15 MG CAP PO PRN ×2 (20:50→23:35)
[2017-07-01] MEDS: Losartan Potassium 25 MG TAB PO SCH (09:40)
[2017-07-01] MEDS: Metoprolol Tartrate 50 MG TAB PO SCH ×2 (09:40→20:23)
[2017-07-01] MEDS: Aspirin 325 MG TAB PO SCH (09:40)
[2017-07-01] MEDS: levETIRAcetam 500 MG TAB PO SCH ×2 (09:40→20:23)
[2017-07-01] MEDS: Tamsulosin HCl 0.4 MG CAP PO SCH (09:40)
--- NOTE | 2017-07-01 12:36 | EKG ---
Test Reason : Blood Pressure : / mmHG Vent. Rate : 080 BPM Atrial Rate : 050 BPM P-R Int : 000 ms QRS Dur : 098 ms QT Int : 442 ms P-R-T Axes : 000 -27 -15 degrees QTc Int : 509 ms Accelerated Junctional rhythm Inferior infarct , age undetermined Prolonged QT Abnormal ECG Confirmed by YANET DERAS ([id number]) on 07/01/2017 12:36:03 PM Referred By: RAMESH Confirmed By:YANET DERAS
[2017-07-01 13:55] LABS: #Eosinphils 0.2 thou/uL (0.0-0.7); #Lymphocytes 1.2 thou/uL (1.20-3.40); #Neutrophils 9.8 thou/uL (1.40-6.50); %Basophils 0.3 % (0.0-1.0); %Eosinophils 1.3 % (0.0-10.0); %Lymphocytes 9.7 % (21.0-51.0); Hematocrit 28.1 % (42.0-52.0); Mean Platelet Volume 6.9 fL (7.4-10.4); Red Blood Cell (RBC) Count 2.77 mill/uL (4.70-6.10); White Blood Cell (WBC) Count 12.1 thou/uL (4.8-10.8)
[2017-07-01 14:22] LABS: ALT (SGPT) 19 U/L (8-55); AST (SGOT) 22 U/L (5-34); Alkaline Phosphatase 93 U/L (40-150); Anion Gap 10 mmol/L (10-20); BUN (Urea Nitrogen) 24 mg/dL (8.4-25.7); Bilirubin, Total 0.5 mg/dL (0.2-1.2); Calc. Creatinine Clearance 49 mL/min (70-130); Calcium 8.9 mg/dL (7.8-10.44); Carbon Dioxide 26 mmol/L (23-31); Chloride 104 mmol/L (98-107); Estimated GFR-MDRD 47; Globulin 3.1 g/dL (2.4-3.5); Protein, Total 5.8 g/dL (5.8-8.1)
--- NOTE | 2017-07-01 16:10 | PRG ---
DATE OF SERVICE: 07/01/2017 SUBJECTIVE: Mr. Keen today is somnolent. His states he has been active up in the chair, and he has undergone rehab. He recently underwent EP study yesterday and was not found to be inducible. LifeVest is recommended. His most recent echo did suggest LVEF 50%. PHYSICAL EXAMINATION: VITAL SIGNS: Blood pressure 119/53, pulse, 64, temperature 97.4. LUNGS: Clear to auscultation. CARDIAC: Regular rate and rhythm. ABDOMEN: Soft, nontender, nondistended. EXTREMITIES: No edema. IMPRESSION: 1. Sustained ventricular tachycardia. 2. Coronary artery disease. 3. Status post bypass surgery. RECOMMENDATIONS: 1. Continue aspirin in addition to metoprolol. Amiodarone 400 mg p.o. b.i.d. has been added. 2. Physical therapy and rehab. 3. Incentive spirometry.
[2017-07-01] MEDS: Atorvastatin Calcium 40 MG TAB PO SCH (20:22)
[2017-07-01] MEDS: Temazepam 15 MG CAP PO PRN (22:53)
--- NOTE | 2017-07-01 22:57 | PRG ---
DATE OF SERVICE: 07/01/2017 SUBJECTIVE: Mr. Keen has been doing well on day after his EP study. He has no chest pains, angina . No further arrhythmias. OBJECTIVE: VITAL SIGNS: Blood pressure 119/53, heart rate 64, respirations 17, temperature 97.4 degrees Fahrenh eit. GENERAL: Alert and oriented man in no apparent distress. NECK: Supple. Jugular veins not distended. CHEST: Coarse, no crackles. CARDIOVASCULAR: Heart sounds are regular to rate and rhythm. No murmur or gallop. ABDOMEN: Benign. Bowel sounds positive. EXTREMITIES: Lower extremities without edema, clubbing or cyanosis. Left groin without hematoma. LABORATORY DATA: White count 12.1, hemoglobin 9.4, platelet count is 383. Electrolytes normal range . BUN is 24, creatinine 1.43. Telemetry strips reveal no recurrence of ventricular arrhythmias. ASSESSMENT AND PLAN: Mr. Keen is a very pleasant 86-year-old man who has underwent a bypass surger y this admission. He had VT prior and after the bypass surgery. He has been loaded with amiodarone. He underwent EP study yesterday revealing no inducible sustained ventricular tachyarrhythmias. For this reason, we will not upgrade his device to an ICD. I do agree with continued amiodarone for supp ression. He may be considered for LifeVest for the next 2-3 months and then I would wean amiodarone at that time. For now, he is stable for discharge and we will see him as an outpatient.
--- NOTE | 2017-07-02 06:33 | PRG ---
DATE OF SERVICE: 07/02/2017 SUBJECRIVE: Ms. Keen is doing well. No current complaints. His confusion appears to continue to wax and wane. OBJECTIVE: CURRENT VITAL SIGNS: Blood pressure 119/53, pulse 65, temperature 98.2. LUNGS: Clear to auscultation. HEART: Regular rate and rhythm. ABDOMEN: Soft, nontender, nondistended. EXTREMITIES: No edema. IMPRESSION: 1. Coronary artery disease. 2. Status post bypass surgery. 3. Ventricular tachycardia. RECOMMENDATIONS: Patient underwent an EP study, it was negative for inducible VT. He does qualify f or a LifeVest. This has been placed. The patient is planning on being discharged to rehabilitation today. Would decrease amiodarone to 400 mg one p.o. q.a.m. x1 month, then decrease to 200 mg one p.o . q.a.m. Continue aspirin, atorvastatin in addition to metoprolol. His LVEF is normal.
[2017-07-02] MEDS: Aspirin 325 MG TAB PO SCH (09:56)
[2017-07-02] MEDS: levETIRAcetam 500 MG TAB PO SCH (09:56)
[2017-07-02] MEDS: Losartan Potassium 25 MG TAB PO SCH (09:56)
[2017-07-02] MEDS: Tamsulosin HCl 0.4 MG CAP PO SCH (09:56)
[2017-07-02] MEDS: Metoprolol Tartrate 50 MG TAB PO SCH (09:57)
[2017-07-02 12:36] VITALS: BP 117/49; TEMP 97.5
--- NOTE | 2017-07-02 12:59 | PRG ---
DATE OF SERVICE: 07/02/2017 REFERRING PHYSICIAN: Dr. Holliday SUBJECTIVE: Mr. Keen is doing well. 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 No palpitations, no dizziness or loss of consciousness noted. OBJECTIVE DATA: VITAL SIGNS: Blood pressure is 119/53, respiration rate 85, the patient is afebrile. GENERAL: He is alert and oriented man in no apparent distress. Continues with blood pressure. NECK: Supple. Jugular veins not distended. CHEST: Coarse, no crackles. Left precordial pacing insertion site is well healed. ABDOMEN: Benign. Bowel sounds positive. EXTREMITIES: With 1+ edema. Midsternal scar is healing well. LABORATORY DATA: No new lab data. This morning telemetry strips reveals sinus rhythm, sinus tachycardia, occasional ventricular pacing . ASSESSMENT AND PLAN: Mr. Keen is a pleasant 86-year-old man with prior history of ventricular tach ycardia, coronary artery disease. He was noted to have VT prior to presentation, but he underwent an ischemic evaluation and required bypass surgery. His monomorphic VT recurred post bypass surgery. He underwent amiodarone loading and subsequent EP study demonstrated no inducible sustained ventricul ar arrhythmia. For this reason, we refrained from ICD upgrade. LVEF also was in the mildly decrease d range only. He does seem to have significant area in the inferoposterior apical segment. Fo r now, we will plan medical management with amiodarone at least the next 3 months. LifeVest might be reducing her chance of recurrence of ventricular arrhythmia events. That has already been organized . I agree with reducing the amiodarone as per Dr. Holliday. I will have to see her back in about 2 -3 months for followup. The plan was discussed with the patient and the .
--- NOTE | 2017-07-02 13:15 | DIS ---
HOSPITAL COURSE: This is an 86-year-old gentleman who was admitted to the hospital for elective darryl nary bypass grafting. He underwent coronary bypass graft x5 to the LAD, diagonal, OM2, OM3 and left PDA. Postoperative course was most notable for sundowning with the patient being quite confused, par ticularly at night. He was seen in consultation by the neurologist who had prescribed a number of me dications for him in regards to this and possible seizure disorder in the recent past. He then had some nonsustained V-tach which actually had occurred prior to hospitalization and he was seen by Dr. Arroyo where he underwent an EP study with no inducible VT. It was recommended that he be discharged w ith a LifeVest and be reevaluated in the future on amiodarone. He will be discharged to rehab probab ly today on amiodarone 400 mg a day, aspirin 325 a day, Lipitor 40 at bedtime, Cozaar 50 daily, metop rolol 50 b.i.d., Flomax 0.4 a day as well as medication for his seizure disorder and dementia. Discharge and follow up instructions have been given.
== END 2017-07-02 14:19 | DRG 236 ==
LOC: SURG A 06-22 06:04 → CCU 06-22 11:46 → 2SE 06-23 22:08
PROVIDERS: ADMIT Thoracic Surgery (Cardiothoracic Vascular Surgery); ATTEND Thoracic Surgery (Cardiothoracic Vascular Surgery)
PROC: 0213099 Bypass Coronary Artery, Four or More Arteries from Left Internal Mammary with Autologous Venous Tissue, Open Approach (ICD-10-PCS; principal; 2017-06-23)
PROC: 06BP0ZZ Excision of Right Saphenous Vein, Open Approach (ICD-10-PCS; 2017-06-23)
PROC: 5A1221Z Performance of Cardiac Output, Continuous (ICD-10-PCS; 2017-06-23)
PROC: 4B02XSZ Measurement of Cardiac Pacemaker, External Approach (ICD-10-PCS; 2017-07-01)
DX: I25.10 Atherosclerotic heart disease of native coronary artery without angina pectoris (principal); I47.2 Ventricular tachycardia; I69.354 Hemiplegia and hemiparesis following cerebral infarction affecting left non-dominant side; F05 Delirium due to known physiological condition; F03.90 Unspecified dementia, unspecified severity, without behavioral disturbance, psychotic disturbance, mood disturbance, and anxiety; Z95.1 Presence of aortocoronary bypass graft; I44.0 Atrioventricular block, first degree; E78.00 Pure hypercholesterolemia, unspecified; Z96.651 Presence of right artificial knee joint; Z95.0 Presence of cardiac pacemaker; Z88.5 Allergy status to narcotic agent; Z82.49 Family history of ischemic heart disease and other diseases of the circulatory system; T40.605A Adverse effect of unspecified narcotics, initial encounter; Y92.239 Unspecified place in hospital as the place of occurrence of the external cause
CPT/HCPCS: 36416; 36430; 71010; 76942; 80048; 80053; 80076; 82805; 83735; 84132; 84443; 85025; 85027; 85610; 85730; 86850; 86900; 86901; 93005; 93010; 93306; 93621; 93798; 94002; 94150; 94640; A4216; C1730; C1769; G8978-GP-CL; G8979-GP-CK; G8987-GO-CM; G8988-GO-CK; J0282; J1644; J1815; J1940; J2001; J2250; J2405; J2704; J3010; J3480; J7050; J7070; J7620; P9045; S0017; S0028

== ENCOUNTER 2017-06-19 10:34 | Outpatient (CLI) | payer MEDICARE ==
[2017-06-19 12:16] LABS: Hematocrit 43.1 % (42.0-52.0); Mean Platelet Volume 7.1 fL (7.4-10.4); White Blood Cell (WBC) Count 7.7 thou/uL (4.8-10.8)
[2017-06-19 12:31] LABS: Anion Gap 11 mmol/L (10-20); BUN (Urea Nitrogen) 21 mg/dL (8.4-25.7); Calc. Creatinine Clearance 0 mL/min (70-130); Calcium 10.2 mg/dL (7.8-10.44); Carbon Dioxide 26 mmol/L (23-31); Chloride 110 mmol/L (98-107); Estimated GFR-MDRD 51
== END 2017-06-19 10:35 | disposition home or self-care (01) ==
LOC: LABBT 10:34
PROVIDERS: ATTEND Thoracic Surgery (Cardiothoracic Vascular Surgery)
DX: Z01.812 Encounter for preprocedural laboratory examination (principal); I25.10 Atherosclerotic heart disease of native coronary artery without angina pectoris
CPT/HCPCS: 36430; 80048; 85027; 86850; 86900; 86901

== ENCOUNTER 2017-07-10 01:19 | Inpatient (IN) | payer MEDICARE ==
[2017-07-10 02:41] LABS: Band 23 % (5-11); Hemoglobin 10.4 g/dL (14.0-18.0); Lymphocytes 7 % (21-51); MDiff Complete? YES; Mean Corpuscular HGB CONC 32.4 g/dL (32.0-36.0); Mean Corpuscular Hemoglobin 32.6 pg (27.0-31.0); Mean Platelet Volume 6.4 fL (7.4-10.4); Monocytes 3 % (0-10); Neutrophil 67 % (42-75); PLT Morphology Comment Appears Increased; Platelet Count 538 thou/uL (130-400); RBC Distribution Width 12.4 % (11.5-14.5); Red Blood Cell (RBC) Count 3.19 mill/uL (4.70-6.10); White Blood Cell (WBC) Count 21.2 thou/uL (4.8-10.8)
[2017-07-10 02:44] LABS: ALT (SGPT) 19 U/L (8-55); AST (SGOT) 17 U/L (5-34); Alkaline Phosphatase 134 U/L (40-150); Anion Gap 14 mmol/L (10-20); BUN (Urea Nitrogen) 19 mg/dL (8.4-25.7); Bilirubin, Total 0.5 mg/dL (0.2-1.2); Calc. Creatinine Clearance 0 mL/min (70-130); Calcium 9.4 mg/dL (7.8-10.44); Carbon Dioxide 23 mmol/L (23-31); Chloride 103 mmol/L (98-107); Estimated GFR-MDRD 43; Globulin 3.2 g/dL (2.4-3.5); Glucose 161 mg/dL (83-110); Potassium 4.8 mmol/L (3.5-5.1); Protein, Total 6.2 g/dL (5.8-8.1); Sodium 135 mmol/L (136-145)
[2017-07-10 02:49] LABS: Troponin I 0.094 ng/mL (< 0.028)
[2017-07-10] MEDS ORDERED: Piperacillin/Tazobactam 4.5 GM in Sodium Chloride 0.9% 100 ML IVPB SCH (03:30)
[2017-07-10 06:16] LABS: Lactic Acid 2.3 mmol/L (0.5-2.2)
[2017-07-10 06:27] VITALS: BMI 29.2
[2017-07-10] MEDS ORDERED: Ondansetron HCl/PF 4 MG/2 ML Vial IVP PRN (06:34)
[2017-07-10] MEDS ORDERED: Acetaminophen 325 MG TAB PO PRN (06:34)
[2017-07-10] MEDS ORDERED: Ondansetron ODT 4 MG TAB SL PRN (06:34)
[2017-07-10] MEDS ORDERED: Loratadine 10 MG TAB PO PRN (07:14)
[2017-07-10] MEDS ORDERED: Chloraseptic Spray 180 ml Bottle PO PRN (07:14)
[2017-07-10] MEDS ORDERED: Metoclopramide HCl 10 MG/2 ML VIAL IVP PRN (07:14)
[2017-07-10] MEDS ORDERED: Mag-Al 1200 mg/1200 mg/30 ML UDCUP PO PRN (07:14)
[2017-07-10] MEDS ORDERED: Milk Of Magnesia 30 ML UDCUP PO PRN (07:14)
[2017-07-10] MEDS ORDERED: Diabetic Tussin 200 MG/10 ML UDCUP PO PRN (07:14)
[2017-07-10] MEDS ORDERED: Nitroglycerin 0.4 MG TAB (25 Tab Bottle) SL PRN (07:14)
[2017-07-10] MEDS ORDERED: Senokot 8.6 MG TAB PO PRN (07:14)
[2017-07-10] MEDS ORDERED: Sodium Chloride 0.65% Nasal 44 ML BOT EA NARE PRN (07:14)
[2017-07-10] MEDS ORDERED: Loperamide HCl 2 MG CAP PO PRN (07:14)
[2017-07-10] MEDS ORDERED: Eucerin (Mineral Oil/Petrolatum,White) 30 gm Jar TOP PRN (07:14)
[2017-07-10] MEDS ORDERED: hydrALAZINE 20 MG/ML VIAL SLOW IVP PRN (07:14)
[2017-07-10] MEDS ORDERED: Artificial Tears 18 DROP/0.9 ML EA EYE PRN (07:14)
[2017-07-10] MEDS ORDERED: Vancomycin HCl 500 MG in Sodium Chloride 0.9% 100 ML IVPB SCH (08:00)
--- NOTE | 2017-07-10 08:58 | RAD ---
EXAM: ONE VIEW CHEST HISTORY: Dyspnea. COMPARISON: 06/23/2017 FINDINGS: Portable upright chest demonstrate sternotomy wires and vascular rings. Stable left-sided transvenou s pacemaker. There are bibasilar pleural and parenchymal changes. No pneumothorax. IMPRESSION: Bibasilar pleural and parenchymal changes. Continued surveillance. POS: [facility]
[2017-07-10] MEDS: Ferrous Sulfate 325 MG TAB PO SCH (10:26)
[2017-07-10] MEDS: Tamsulosin HCl 0.4 MG CAP PO SCH (10:27)
[2017-07-10] MEDS: Cyanocobalamin (Vitamin B-12) 1,000 MCG TAB PO SCH (10:27)
[2017-07-10] MEDS: Aspirin 325 MG TAB PO SCH (10:27)
[2017-07-10] MEDS: Folic Acid 1 MG TAB PO SCH (10:27)
[2017-07-10] MEDS: Saccharomyces boulardii 250 MG CAP PO SCH (10:28)
[2017-07-10] MEDS: Enoxaparin Sodium 40 MG/0.4 ML SYRINGE SC SCH (10:28)
[2017-07-10] MEDS: Multivitamin W/ Minerals 1 TAB PO SCH (10:28)
[2017-07-10] MEDS: levETIRAcetam 500 MG TAB PO SCH ×2 (10:28→21:01)
--- NOTE | 2017-07-10 12:18 | HP ---
PRIMARY CARE PHYSICIAN: Vick Kc M.D. REASON FOR ADMISSION: Acute hypoxic respiratory failure, bibasilar pneumonia, sepsis with acute orga n dysfunction. HISTORY OF PRESENT ILLNESS: An 86-year-old male who has multiple medical problems who had recently c ardiac catheterization on 06/15/[address] Holliday and patient was found with severe mitral valve disease as well as 3-vessel CAD and nonemergent CABG was recommended. This procedure was done as an outpatient basis. Subsequently, patient saw Dr. Gilbert as an outpatient basis and patient was planned for CABG, which was done in our hospital on 06/22/2017. Patient required CABG x5 and patient was di scharged to [facility] on 07/02/2017. Patient also had electrophysiologic study and the patie nt did not have any inducible ventricular tachycardia and that is why patient was given LifeVest upon discharge. The patient was doing relatively well up until a couple of days ago when he started feeling increasin g shortness of breath and his oxygen saturation was dropping and he was more lethargic and he was mor e weak and he was not able to participate with therapy and that is why patient was sent to the emerge ncy room for evaluation. When he presented to emergency room, he was hypoxic. He was tachycardic and relatively hypotensive. The patient was found with bibasilar pneumonia. Routine blood tests showed leukocytosis with left s hift and he also had low grade fever in the emergency room, he was requiring high flow oxygen and ashish t is why he was overnight admitted in IMCU. This patient is very hard of hearing. When I saw this patient, at that time he was maintaining satur ation above 90% on 3-4 liters of oxygen and his vitals are stable. REVIEW OF SYSTEMS: The following complete review of systems was negative, unless otherwise mentioned in the HPI or below: Constitutional: Weight loss or gain, ability to conduct usual activities. Skin: Rash, itching. Eyes: Double vision, pain. ENT/Mouth: Nose bleeding, neck stiffness, pain, tenderness. Cardiovascular: Palpitations, dyspnea on exertion, orthopnea. Respiratory: Shortness of breath, wheezing, cough, hemoptysis, fever or night sweats. Gastrointestinal: Poor appetite, abdominal pain, heartburn, nausea, vomiting, constipation, or diarr hea. Genitourinary: Urgency, frequency, dysuria, nocturia. Musculoskeletal: Pain, swelling. Neurologic/Psychiatric: Anxiety, depression. Allergy/Immunologic: Skin rash, bleeding tendency. Please see my HPI for pertinent positive and negative. All other review of systems reviewed and nega tive except as mentioned in the HPI. ALLERGIES: CODEINE, MORPHINE. CURRENT HOME MEDICATIONS: Alprazolam 0.25 mg p.o. at bedtime p.r.n., amiodarone 400 mg p.o. daily, a spirin 325 mg p.o. daily, Lipitor 40 mg p.o. at bedtime, vitamin D3 2000 units p.o. daily, clonazepam 0.5 mg p.o. daily, vitamin B12 1000 mcg p.o. daily, Aricept 10 mg p.o. at bedtime, Keppra 500 mg p.o . b.i.d., losartan 50 mg p.o. daily, Lopressor 50 mg p.o. b.i.d., multivitamin 1 tablet p.o. daily, o meprazole 40 mg p.o. daily, Metamucil daily, Zoloft 100 mg p.o. daily, Flomax 0.4 mg p.o. daily, and Coenzyme Q10 one tablet p.o. daily. PAST MEDICAL HISTORY: Paroxysmal ventricular tachycardia/nonsustained ventricular tachycardia, dysli pidemia, coronary artery disease required CABG, senile dementia, seizure disorder, hypertension, tushar roesophageal reflux disease, and benign enlargement of prostate. PAST SURGICAL HISTORY: CABG x5, appendicectomy, bilateral knee replacement, back surgery, pacemaker insertion. FAMILY HISTORY: Father by age of 85 from heart disease. Mother in her old age fro m renal failure and heart disease. SOCIAL HISTORY: Patient is . Currently patient is from [facility]. No history of tobacco, alcohol or illicit drug abuse. PAST PSYCHIATRIC HISTORY: Anxiety and depression. EMERGENCY ROOM COURSE: The patient has received vancomycin and Zosyn. PHYSICAL EXAMINATION: VITAL SIGNS: On arrival, blood pressure 99/52, pulse 74, respiratory rate 24, temperature 99.2, satu ration 90% on 2 liters oxygen, weight 113.4 kilograms. GENERAL: Patient is currently lethargic and weak, in no obvious acute distress. HEAD: Normocephalic, atraumatic. EYES: Pupils round, reactive to light. Extraocular muscles intact. ENT: Oropharynx within normal limits. Moist mucous membranes. No oral lesions. No pharyngeal eryt crys, no exudate. NECK: Supple, no JVD, no thyromegaly, no carotid bruit, no jugular venous distention. LUNGS: Bibasilar rales noted. Few end expiratory wheezing heard. CARDIAC: S1, S2 appears regular. Chest wall, LifeVest in place. ABDOMEN: Soft, bowel sounds present, nontender, nondistended. No organomegaly, no mass, no suprapub ic tenderness. BACK: Examination unremarkable, no CVA tenderness. EXTREMITIES: Upper extremity; passive movements of all joints are normal. Lower extremities: No ed amando. Good peripheral pulsation. SKIN: Surgical site is clean and healthy. NEUROLOGIC: Grossly nonfocal examination. He moves all 4 limbs. Plantar bilateral flexor. PSYCHIATRIC: Normal affect. IMAGING DATA AND SIGNIFICANT LABORATORY DATA: 1. EKG showing first degree AV block, nonspecific T changes. 2. Chest x-ray showing bibasilar pneumonia, more on the right side. 3. CBC: WBC 21.2, hemoglobin 10.4, MCV 101, platelets 538 with bandemia. 4. BMP: Sodium 135, potassium 4.8, chloride 103, carbon dioxide 23, BUN 19, creatinine 1.54, glucos e 161, lactic acid 2.5, calcium 9.4. 5. LFT: AST 17, ALT 19, alkaline phosphatase 134, albumin 3.0. CK-MB 1.0, troponin I 0.094, albumi n 3.0. ASSESSMENT AND PLAN/IMPRESSION: 1. Acute hypoxic respiratory failure, likely related with ischemic cardiomyopathy as well as bibasil ar pneumonia. We will monitor oxygen saturation. We will keep oxygen to keep saturation above 92%. 2. Bibasilar, predominantly right lower lobe healthcare-associated pneumonia. Patient has leukocyto sis with bandemia along with low grade fever and hypoxia, likely due to underlying pneumonia. Given patient was recently hospitalized as well as he is at [facility], this would be consi dered as healthcare-associated pneumonia. The patient will be given broad spectrum antibiotic therap y with vancomycin and Zosyn and we will follow up on culture result. 3. Sepsis with acute organ dysfunction. Patient has sepsis criteria with fever, leukocytosis, bande liya, associated hypoxic respiratory failure and demand ischemia. Patient is already on broad spectru m antibiotic therapy and we will change antibiotic therapy accordingly. 4. Lactic acidosis, likely due to sepsis. We will repeat lactic acid tomorrow morning. 5. Elevated troponin, likely due to demand ischemia. We will repeat cardiac enzymes x3 to rule out acute coronary syndrome. 6. Microcytic anemia. We will continue folic acid, vitamin B12, and Theragran therapy. 7. Chronic systolic heart failure. The patient had cardiomyopathy. Based on most recent echocardio graphy done on 06/22/2017, patient's ejection fraction is 45%-50%. Currently because of low blood pr essure, we are holding his Toprol-XL and losartan, but once blood pressure allows, then we will resum e those medications. Currently, patient is euvolemic. 8. Coronary artery disease required coronary artery bypass graft. Patient will be on aspirin, Lipit or therapy and we will resume metoprolol and losartan when blood pressure allows. 9. Chronic kidney disease stage 3. We will monitor renal function. We will avoid nephrotoxic agent . 10. Anxiety and depression. We will continue Xanax 0.25 mg p.o. at bedtime and Zoloft 100 mg p.o. d aily. 11. Benign enlargement of prostate. We will continue Flomax 0.4 mg p.o. daily. 12. History of hypertension, but currently low blood pressure and that is why we will hold on antihy pertensive medication. 13. Senile dementia. We will continue Aricept 10 mg p.o. at bedtime. 14. Seizure disorder. We will continue Keppra 500 mg p.o. b.i.d. 15. Gastroesophageal reflux disease. We will continue Protonix 40 mg p.o. daily. 16. Paroxysmal ventricular arrhythmia. We will continue amiodarone 400 mg p.o. daily. Patient rona leong has LifeVest in place. 17. Deep venous thrombosis prophylaxis, Lovenox 40 mg subcu daily. 18. Gastrointestinal prophylaxis, Protonix 40 mg p.o. daily. CODE STATUS: The patient is FULL CODE. The patient's is surrogate decision maker. Disposition plan based on clinical course. We are expecting patient's stay in the hospital more than 2 midnights. Plan of care discussed with the patient in detail.
[2017-07-10] MEDS: Piperacillin/Tazobactam 3.375 GM in Sodium Chloride 0.9% 100 ML IVPB SCH ×2 (12:45→18:51)
--- NOTE | 2017-07-10 12:54 | PDOC.PULCN ---
Pulmonology Consult: HPI - Date of Consult Date: 07/10/17 Time: 12:51 - Consult Details Reason for Consult: pneumonia Requesting Physician: Curry - History of Present Illness HPI: GREGORY MCKEON is a 86 year-old M transferred from [facility] because of SOB and hypoxemia. History obtained from family, patient, and from reviewing records. Sx have been present for 2 to 3 days. Cough is nonproductive. Low grade fever. Pulmonology Consult: ROS - Review of Systems All systems: reviewed and no additional remarkable complaints except as stated Constitutional: fever, chills Cardiovascular: chest pain Respiratory: congestion, cough, chest tightness, short of breath Pulmonology Consult: H Source: patient, family, other Pulmonology Consult: Meds - Medications Medications: Current Medications Acetaminophen (Tylenol) 650 mg PO Q4H PRN PRN Reason: Headache/Fever or Pain Al Hydroxide/Mg Hydroxide (Maalox) 30 ml PO Q6H PRN PRN Reason: Heartburn or Indigestion Albuterol/Ipratropium (Duoneb) 3 ml NEB [id number] [place] Albuterol/Ipratropium (Duoneb) 3 ml NEB [id number] PRN PRN Reason: SOB &/or Wheezing Amiodarone HCl (Cordarone) 400 mg PO QAM [facility] Artificial Tears (Tears Naturale) 0 drop EA EYE PRN PRN PRN Reason: Dry Eyes Aspirin (Aspirin) 325 mg PO DAILY [facility] Last Admin: 07/10/17 10:27 Dose: 325 mg Atorvastatin Calcium (Lipitor) 40 mg PO HS [facility] Cholecalciferol (Vitamin D3) 2,000 units PO DAILY [facility] Last Admin: 07/10/17 10:28 Dose: 2,000 units Clonazepam (Klonopin) 0.5 mg PO DAILY [facility] Coenzyme Q10 (Coenzyme Q10) 100 mg PO DAILY [facility] Cyanocobalamin (Vitamin B-12) 1,000 mcg PO DAILY [facility] Last Admin: 07/10/17 10:27 Dose: 1,000 mcg Enoxaparin Sodium (Lovenox) 40 mg SC 0900 [facility] Last Admin: 07/10/17 10:28 Dose: 40 mg Ferrous Sulfate (Feosol) 325 mg PO QAM[facility] Last Admin: 07/10/17 10:26 Dose: 325 mg Folic Acid (Folvite) 1 mg PO DAILY [facility] Last Admin: 07/10/17 10:27 Dose: 1 mg Guaifenesin (Robitussin Sf) 200 mg PO Q4H PRN PRN Reason: Cough Hydralazine HCl (Apresoline) 10 mg SLOW IVP Q4H PRN PRN Reason: Systolic BP > 180 Piperacillin Sod/Tazobactam (Sod 3.375 gm/ Sodium Chloride) 100 mls @ 200 mls/ hr IVPB Q6HR [facility] Vancomycin HCl 1.25 gm/ Sodium (Chloride) 250 mls @ 166.667 mls/hr IVPB 0900 [facility] Iron/Minerals/Multivitamins (Theragran M) 1 tab PO DAILY [facility] Last Admin: 07/10/17 10:28 Dose: 1 tab Levetiracetam (Keppra) 500 mg PO BID [facility] Last Admin: 07/10/17 10:28 Dose: 500 mg Loperamide HCl (Imodium) 2 mg PO PRN PRN PRN Reason: Diarrhea/Loose Stools Loratadine (Claritin) 10 mg PO DAILYPRN PRN PRN Reason: Sinus Symptoms Magnesium Hydroxide (Milk Of Magnesium) 30 ml PO DAILYPRN PRN PRN Reason: Constipation Metoclopramide HCl (Reglan) 5 mg IVP Q4H PRN PRN Reason: Nausea Mineral Oil/White Petrolatum (Eucerin Cream) 0 gm TOP BIDPRN PRN PRN Reason: Dry Skin Miscellaneous Medication (Pharmacy To Dose) 0 each IVPB ASDIR PRN PRN Reason: Pharmacy to Dose VANCOMYCIN Nitroglycerin (Nitrostat) 0.4 mg SL Q5MIN PRN PRN Reason: Chest Pain Pantoprazole Sodium (Protonix) 40 mg PO DAILY [facility] Last Admin: 07/10/17 10:28 Dose: 40 mg Phenol (Chloraseptic [place] 180 Ml Bot) 0 ml PO PRN PRN PRN Reason: Sore Throat Saccharomyces Boulardii (Florastor) 250 mg PO DAILY [facility] Last Admin: 07/10/17 10:28 Dose: 250 mg Senna (Senokot) 2 tab PO HSPRN PRN PRN Reason: Constipation Sodium Chloride ([place] Nasal [place] 0.65%) 0 ml EA NARE QIDPRN PRN PRN Reason: Nasal Congestion Tamsulosin HCl (Flomax) 0.4 mg PO DAILY [facility] Last Admin: 07/10/17 10:27 Dose: 0.4 mg - Allergies Allergies/Adverse Reactions: Allergies Allergy/AdvReac Type Severity Reaction Status Date / Time morphine Allergy Intermediate AGITATION Verified 06/12/17 12:26 codeine Allergy excessive Verified 06/12/17 12:26 anxiety Chemicals Allergy Uncoded 06/19/17 11:01 Colognes Allergy Uncoded 06/19/17 11:01 Pulmonology Consult: Results - Labs Result Diagrams: 07/10/17 02:11 07/10/17 02:12 Lab results: Laboratory Results WBC 21.2 thou/uL (4.8-10.8) H 07/10/17 02:11 RBC 3.19 mill/uL (4.70-6.10) L 07/10/17 02:11 Hgb 10.4 g/dL (14.0-18.0) L 07/10/17 02:11 Hct 32.1 % (42.0-52.0) L 07/10/17 02:11 MCV 101.0 fl (80.0-94.0) H 07/10/17 02:11 MCH 32.6 pg (27.0-31.0) H 07/10/17 02:11 MCHC 32.4 g/dL (32.0-36.0) 07/10/17 02:11 RDW 12.4 % (11.5-14.5) 07/10/17 02:11 Plt Count 538 thou/uL (130-400) H 07/10/17 02:11 MPV 6.4 fL (7.4-10.4) L 07/10/17 02:11 Neutrophils % (Manual) 67 % (42-75) 07/10/17 02:11 Band Neuts % (Manual) 23 % (5-11) H 07/10/17 02:11 Lymphocytes % (Manual) 7 % (21-51) L 07/10/17 02:11 Monocytes % (Manual) 3 % (0-10) 07/10/17 02:11 Plt Morphology Comment Appears Increased H 07/10/17 02:11 Sodium 135 mmol/L (136-145) L 07/10/17 02:12 Potassium 4.8 mmol/L (3.5-5.1) 07/10/17 02:12 Chloride 103 mmol/L (98-107) 07/10/17 02:12 Carbon Dioxide 23 mmol/L (23-31) 07/10/17 02:12 Anion Gap 14 mmol/L (10-20) 07/10/17 02:12 BUN 19 mg/dL (8.4-25.7) 07/10/17 02:12 Creatinine 1.54 mg/dL (0.6-1.3) H 07/10/17 02:12 Estimated GFR (MDRD) 43 07/10/17 02:12 Glucose 161 mg/dL (83-110) H 07/10/17 02:12 Lactic Acid 2.3 mmol/L (0.5-2.2) H 07/10/17 05:51 Calcium 9.4 mg/dL (7.8-10.44) 07/10/17 02:12 Total Bilirubin 0.5 mg/dL (0.2-1.2) 07/10/17 02:12 AST 17 U/L (5-34) 07/10/17 02:12 ALT 19 U/L (8-55) 07/10/17 02:12 Alkaline Phosphatase 134 U/L (40-150) 07/10/17 02:12 CK-MB (CK-2) 1.0 ng/mL (0-6.6) 07/10/17 02:11 Troponin I 0.094 ng/mL (< 0.028) H 07/10/17 02:11 B-Natriuretic Peptide 815.9 pg/mL (0-100) H 07/10/17 02:12 Serum Total Protein 6.2 g/dL (5.8-8.1) 07/10/17 02:12 Albumin 3.0 g/dL (3.4-4.8) L 07/10/17 02:12 Globulin 3.2 g/dL (2.4-3.5) 07/10/17 02:12 Albumin/Globulin Ratio 0.9 g/dL (1.2-2.2) L 07/10/17 02:12 Pulmonology Consult: A/P - Time Time: 50% of the time was spent in coordination of care (as documented) at patient's floor/unit and/or counseling patient.
--- NOTE | 2017-07-10 14:53 | CON ---
DATE OF CONSULTATION: 07/10/2017 CONSULTING PHYSICIAN: Hospitalist group. REASON FOR CONSULTATION: Respiratory distress. HISTORY OF PRESENT ILLNESS: The patient is an 86-year-old male who was transferred to this facility from [facility] after developing shortness of breath, sputum production, and hypoxemia that has incr eased over the last 2-3 days. The severity is severe. There are no alleviating or aggravating facto rs. He has a dry cough with nonproductive sputum. REVIEW OF SYSTEMS: Remarkable for cough, congestion, otherwise 12 point review of systems is negativ e. PAST MEDICAL HISTORY: 1. Coronary artery disease. 2. Ventricular tachycardia. 3. Hyperlipidemia. 4. Dementia. 5. Seizure disorder. 6. Hypertension. 7. Gastroesophageal reflux. 8. Prostatic hypertrophy. PAST SURGICAL HISTORY: 1. Coronary bypass grafting surgery done on 06/22/2017. 2. Appendectomy. 3. Bilateral knee replacements. 4. Back surgery. 5. Pacemaker insertion. FAMILY MEDICAL HISTORY: Remarkable for coronary artery disease and renal failure. SOCIAL HISTORY: No history of smoking, alcohol use, or illicit drug use. PSYCHIATRIC HISTORY: Remarkable for anxiety and depression. MEDICATIONS: Prior to admission, Xanax, atorvastatin, aspirin, amiodarone, Aricept, vitamin B12, vit queen D3, Cozaar, Claritin-D 24, multivitamin, Lopressor, Prilosec, Flomax, Zoloft, Coenzyme Q10, Kepp ra, and Klonopin. CURRENT INPATIENT MEDICATIONS: DuoNeb, Cordarone, aspirin, Lipitor, vitamin D3, Klonopin, Coenzyme Q 10, vitamin B12, Lovenox, iron sulfate, folate, Robitussin, Apresoline, Theragran, Keppra, Imodium, C laritin, Reglan, Chloraseptic spray, Zosyn, Florastor, Flomax, and vancomycin. PHYSICAL EXAMINATION: VITAL SIGNS: Temperature 97.8, pulse 73, respirations 15, O2 sat 96% on 4 liters, blood pressure 137 /57. GENERAL: He is awake, appears to be in no distress. He is alert and oriented x3 and able to give hi story on his own. NEUROLOGIC: He moves all 4 extremities. Muscle strength is 5/5 throughout. Cranial nerves II-XII a re intact. HEENT: Sclerae are anicteric. Oropharynx clear. NECK: Without adenopathy, JVD, or bruits. LUNGS: He has few crackles in both bases, otherwise clear. CARDIAC: S1, S2 regular. He has median sternotomy scar which is healing. ABDOMEN: Soft, nontender. No hepatosplenomegaly. No lymphadenopathy throughout. EXTREMITIES: No clubbing, cyanosis, or edema. SKIN: Shows no rashes. He has healing lesions over his right leg where his vein was harvested for s urgery. LABORATORY DATA: Sodium 135, potassium 4.8, chloride 103, CO2 23, BUN 19, creatinine was 1.5, glucos e 161. BNP level was 815. White blood cell count 21, hematocrit 32, platelet count 538 with 67% tanesha trophils, 23% bands. Chest x-ray shows questionable right lower lobe infiltrate. ASSESSMENT: 1. Hospital-acquired pneumonia. 2. Question of concurrent heart failure. I have reviewed his laboratory test, old records, current chest x-ray film, and current orders. PLAN: 1. Agree with current antibiotic regimen including piperacillin and vancomycin 2. Continue nebulization treatments. 3. Monitor IMC for the time being. Fifty minutes time was spent at the bedside and the patient's hospital for unit examining the patient , reviewing the data, and discussing with family, as well as reviewing orders.
[2017-07-10 20:52] LABS: Magnesium 2.3 mg/dL (1.6-2.6)
[2017-07-10] MEDS: Atorvastatin Calcium 40 MG TAB PO SCH (21:01)
[2017-07-11] MEDS: Piperacillin/Tazobactam 3.375 GM in Sodium Chloride 0.9% 100 ML IVPB SCH ×4 (00:10→17:59)
[2017-07-11 06:13] LABS: #Basophils 0.1 thou/uL (0.0-0.2); #Eosinphils 0.3 thou/uL (0.0-0.7); #Monocytes 0.8 thou/uL (0.11-0.59); #Neutrophils 11.9 thou/uL (1.40-6.50); %Basophils 0.4 % (0.0-1.0); %Eosinophils 1.9 % (0.0-10.0); %Lymphocytes 6.8 % (21.0-51.0); %Monocytes 5.4 % (0.0-10.0); %Neutrophils 85.5 % (42.0-75.0); Hemoglobin 9.6 g/dL (14.0-18.0); Mean Corpuscular HGB CONC 32.1 g/dL (32.0-36.0); Mean Corpuscular Hemoglobin 32.7 pg (27.0-31.0); Mean Platelet Volume 6.5 fL (7.4-10.4); Platelet Count 481 thou/uL (130-400); RBC Distribution Width 12.6 % (11.5-14.5); Red Blood Cell (RBC) Count 2.92 mill/uL (4.70-6.10); White Blood Cell (WBC) Count 13.9 thou/uL (4.8-10.8)
[2017-07-11 06:25] LABS: Lactic Acid 1.7 mmol/L (0.5-2.2)
[2017-07-11 07:09] LABS: ALT (SGPT) 15 U/L (8-55); AST (SGOT) 14 U/L (5-34); Albumin 2.6 g/dL (3.4-4.8); Alkaline Phosphatase 123 U/L (40-150); Anion Gap 16 mmol/L (10-20); BUN (Urea Nitrogen) 16 mg/dL (8.4-25.7); Bilirubin, Total 0.5 mg/dL (0.2-1.2); Calc. Creatinine Clearance 47 mL/min (70-130); Calcium 9.7 mg/dL (7.8-10.44); Carbon Dioxide 21 mmol/L (23-31); Chloride 107 mmol/L (98-107); Estimated GFR-MDRD 45; Globulin 3.4 g/dL (2.4-3.5); Glucose 114 mg/dL (83-110); Potassium 4.6 mmol/L (3.5-5.1); Sodium 139 mmol/L (136-145)
--- NOTE | 2017-07-11 11:11 | PDOC.PN ---
- Subjective Encounter Start Date: 07/11/17 Encounter Start Time: 08:00 -: old records requested/rev pt is doing well, bedside, has dyspnea, no fever, feels weak Patient seen and examined. No new complaints. No overnight events - Objective Resuscitation Status: Resuscitation Status FULL:Full Resuscitation MAR Reviewed: Yes Vital Signs & Weight: Vital Signs (12 hours) Temp Pulse Resp BP BP Pulse Ox 07/11/17 07:03 78 16 94 L 07/11/17 04:00 98.1 F 91 20 124/73 100 07/11/17 00:00 97.7 F 88 18 120/63 96 07/10/17 23:47 92 L Weight Weight 196 lb 10.437 oz I&O: 07/10/17 07/11/17 07/12/17 06:59 06:59 06:59 Intake Total 700 Output Total 600 Balance 100 Result Diagrams: 07/11/17 05:38 07/11/17 05:38 EKG Reviewed by me: Yes (nsr) Phys Exam - Physical Examination Constitutional: NAD HEENT: PERRLA, moist MMs, sclera anicteric Neck: no JVD, supple Respiratory: no wheezing, no rales, no rhonchi Cardiovascular: RRR, no significant murmur, no rub Gastrointestinal: soft, non-tender, no distention, positive bowel sounds Musculoskeletal: no edema, pulses present Neurological: non-focal, normal sensation Lymphatic: no nodes Psychiatric: normal affect, A&O x 3 Skin: no rash, normal turgor Dx/Plan (1) Acute respiratory failure with hypoxia Code(s): J96.01 - ACUTE RESPIRATORY FAILURE WITH HYPOXIA Status: Acute (2) Healthcare associated bacterial pneumonia Code(s): J15.9 - UNSPECIFIED BACTERIAL PNEUMONIA Status: Acute (3) Physical deconditioning Code(s): R53.81 - OTHER MALAISE Status: Acute (4) Sepsis with acute organ dysfunction Code(s): A41.9 - SEPSIS, UNSPECIFIED ORGANISM; R65.20 - SEVERE SEPSIS WITHOUT SEPTIC SHOCK Status: Acute (5) Anxiety and depression Code(s): F41.8 - OTHER SPECIFIED ANXIETY DISORDERS Status: Chronic (6) BPH (benign prostatic hyperplasia) Code(s): N40.0 - BENIGN PROSTATIC HYPERPLASIA WITHOUT LOWER URINRY TRACT SYMP Status: Chronic (7) CAD (coronary artery disease) Code(s): I25.10 - ATHSCL HEART DISEASE OF [place] CORONARY ARTERY W/O ANG PCTRS Status: Chronic (8) Chronic systolic (congestive) heart failure Code(s): I50.22 - CHRONIC SYSTOLIC (CONGESTIVE) HEART FAILURE Status: Chronic (9) Dyslipidemia Code(s): E78.5 - HYPERLIPIDEMIA, UNSPECIFIED Status: Chronic (10) GERD (gastroesophageal reflux disease) Code(s): K21.9 - GASTRO-ESOPHAGEAL REFLUX DISEASE WITHOUT ESOPHAGITIS Status: Chronic (11) H/O: CVA (cerebrovascular accident) Code(s): Z86.73 - PRSNL HX OF TIA (TIA), AND CEREB INFRC W/O RESID DEFICITS Status: Chronic (12) Hypertension Code(s): I10 - ESSENTIAL (PRIMARY) HYPERTENSION Status: Chronic (13) Macrocytic anemia Code(s): D53.9 - NUTRITIONAL ANEMIA, UNSPECIFIED Status: Chronic (14) Seizure disorder Code(s): G40.909 - EPILEPSY, UNSP, NOT INTRACTABLE, WITHOUT STATUS EPILEPTICUS Status: Chronic (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 Review of Systems - Review of Systems Constitutional: weakness, malaise. negative: fever, chills, sweats, other ENT: negative: Ear Pain, Ear Discharge, Nose Pain, Nose Discharge, Nose Congestion, Mouth Pain, Mouth Swelling, Throat Pain, Throat Swelling, Other Respiratory: Cough, SOB with Excertion. negative: Dry, Shortness of Breath, Hemoptysis, Pleuritic Pain, Sputum, Wheezing Cardiovascular: negative: chest pain, palpitations, orthopnea, paroxysmal nocturnal dyspnea, edema, light headedness, other Gastrointestinal: negative: Nausea, Vomiting, Abdominal Pain, Diarrhea, Constipation, Melena, Hematochezia, Other Genitourinary: negative: Dysuria, Frequency, Incontinence, Hematuria, Retention , Other Musculoskeletal: negative: Neck Pain, Shoulder Pain, Arm Pain, Back Pain, Hand Pain, Leg Pain, Foot Pain, Other Skin: negative: Rash, Lesions, Jean, Bruising, Other - Medications/Allergies Allergies/Adverse Reactions: Allergies Allergy/AdvReac Type Severity Reaction Status Date / Time morphine Allergy Intermediate AGITATION Verified 06/12/17 12:26 codeine Allergy excessive Verified 06/12/17 12:26 anxiety Chemicals Allergy Uncoded 06/19/17 11:01 Colognes Allergy Uncoded 06/19/17 11:01 Medications: Current Medications Acetaminophen (Tylenol) 650 mg PO Q4H PRN PRN Reason: Headache/Fever or Pain Al Hydroxide/Mg Hydroxide (Maalox) 30 ml PO Q6H PRN PRN Reason: Heartburn or Indigestion Albuterol/Ipratropium (Duoneb) 3 ml NEB [id number] [facility] Last Admin: 07/11/17 07:03 Dose: 3 ml Albuterol/Ipratropium (Duoneb) 3 ml NEB [id number] PRN PRN Reason: SOB &/or Wheezing Alprazolam (Xanax) 0.25 mg PO HSPRN PRN PRN Reason: Anxiety/Insomnia Amiodarone HCl (Cordarone) [facility] [place] Artificial Tears (Tears Naturale) 0 drop EA EYE PRN PRN PRN Reason: Dry Eyes Aspirin (Aspirin) 325 mg PO DAILY [facility] Last Admin: 07/10/17 10:27 Dose: 325 mg Atorvastatin Calcium (Lipitor) 40 mg PO HS [facility] Last Admin: 07/10/17 21:01 Dose: 40 mg Cholecalciferol (Vitamin D3) 2,000 units PO DAILY [facility] Last Admin: 07/10/17 10:28 Dose: 2,000 units Clonazepam (Klonopin) 0.5 mg PO DAILY [facility] Coenzyme Q10 (Coenzyme Q10) 100 mg PO DAILY [facility] Cyanocobalamin (Vitamin B-12) 1,000 mcg PO DAILY [facility] Last Admin: 07/10/17 10:27 Dose: 1,000 mcg Enoxaparin Sodium (Lovenox) 40 mg SC 0900 [facility] Last Admin: 07/10/17 10:28 Dose: 40 mg Ferrous Sulfate (Feosol) 325 mg PO QA-WM [facility] Last Admin: 07/10/17 10:26 Dose: 325 mg Folic Acid (Folvite) 1 mg PO DAILY [facility] Last Admin: 07/10/17 10:27 Dose: 1 mg Guaifenesin (Robitussin Sf) 200 mg PO Q4H PRN PRN Reason: Cough Hydralazine HCl (Apresoline) 10 mg SLOW IVP Q4H PRN PRN Reason: Systolic BP > 180 Piperacillin Sod/Tazobactam (Sod 3.375 gm/ Sodium Chloride) 100 mls @ 200 mls/ hr IVPB Q6HR [facility] Last Admin: 07/11/17 05:37 Dose: 100 mls Vancomycin HCl 1.25 gm/ Sodium (Chloride) 250 mls @ 166.667 mls/hr IVPB 0900 [facility] Iron/Minerals/Multivitamins (Theragran M) 1 tab PO DAILY [facility] Last Admin: 07/10/17 10:28 Dose: 1 tab Levetiracetam (Keppra) 500 mg PO BID [facility] Last Admin: 07/10/17 21:01 Dose: 500 mg Loperamide HCl (Imodium) 2 mg PO PRN PRN PRN Reason: Diarrhea/Loose Stools Loratadine (Claritin) 10 mg PO DAILYPRN PRN PRN Reason: Sinus Symptoms Magnesium Hydroxide (Milk Of Magnesium) 30 ml PO DAILYPRN PRN PRN Reason: Constipation Metoclopramide HCl (Reglan) 5 mg IVP Q4H PRN PRN Reason: Nausea Mineral Oil/White Petrolatum (Eucerin Cream) 0 gm TOP BIDPRN PRN PRN Reason: Dry Skin Miscellaneous Medication (Pharmacy To Dose) 0 each IVPB ASDIR PRN PRN Reason: Pharmacy to Dose VANCOMYCIN Nitroglycerin (Nitrostat) 0.4 mg SL Q5MIN PRN PRN Reason: Chest Pain Pantoprazole Sodium (Protonix) 40 mg PO DAILY [facility] Last Admin: 07/10/17 10:28 Dose: 40 mg Phenol (Chloraseptic [place] 180 Ml Bot) 0 ml PO PRN PRN PRN Reason: Sore Throat Saccharomyces Boulardii (Florastor) 250 mg PO DAILY [facility] Last Admin: 07/10/17 10:28 Dose: 250 mg Senna (Senokot) 2 tab PO HSPRN PRN PRN Reason: Constipation Sodium Chloride ([place] Nasal [place] 0.65%) 0 ml EA NARE QIDPRN PRN PRN Reason: Nasal Congestion Tamsulosin HCl (Flomax) 0.4 mg PO DAILY [facility] Last Admin: 07/10/17 10:27 Dose: 0.4 mg
[2017-07-11] MEDS: Vancomycin HCl 1.25 GM in Sodium Chloride 0.9% 250 ML 250 ML IVPB SCH (12:32)
[2017-07-11] MEDS: Saccharomyces boulardii 250 MG CAP PO SCH (12:33)
[2017-07-11] MEDS: Amiodarone 200 MG TAB PO SCH (12:33)
[2017-07-11] MEDS: Enoxaparin Sodium 40 MG/0.4 ML SYRINGE SC SCH (12:33)
[2017-07-11] MEDS: Ubidecarenone 50 MG CAP PO SCH (12:34)
[2017-07-11] MEDS: Cyanocobalamin (Vitamin B-12) 1,000 MCG TAB PO SCH (12:34)
[2017-07-11] MEDS: Tamsulosin HCl 0.4 MG CAP PO SCH (12:34)
[2017-07-11] MEDS: levETIRAcetam 500 MG TAB PO SCH ×2 (12:35→20:43)
[2017-07-11] MEDS: Aspirin 325 MG TAB PO SCH (12:35)
[2017-07-11] MEDS: Ferrous Sulfate 325 MG TAB PO SCH (12:35)
[2017-07-11] MEDS: Folic Acid 1 MG TAB PO SCH (12:35)
[2017-07-11] MEDS: clonazePAM 0.5 MG TAB PO SCH (12:35)
[2017-07-11] MEDS: Multivitamin W/ Minerals 1 TAB PO SCH (12:35)
--- NOTE | 2017-07-11 12:54 | EKG ---
Test Reason : Blood Pressure : / mmHG Vent. Rate : 073 BPM Atrial Rate : 073 BPM P-R Int : 260 ms QRS Dur : 096 ms QT Int : 442 ms P-R-T Axes : 035 -28 -68 degrees QTc Int : 486 ms Sinus rhythm with 1st degree A-V block T wave abnormality, consider inferolateral ischemia Abnormal ECG Confirmed by ZAKIYA CLEMENTE [id number]), content editor BRYANT NAVARRO ([id number] on 07/11/2017 12:54:05 PM Referred By: Confirmed By:ZAKIYA CLEMENTE
--- NOTE | 2017-07-11 13:23 | PRG ---
DATE OF SERVICE: 07/11/2017 SUBJECTIVE: He feels better today. He had no acute complaints. OBJECTIVE: VITAL SIGNS: Temperature 98.1, pulse 78, respirations 16, O2 sat 94% on 3 liters, blood pressure 124 /73. HEENT: Unremarkable. NECK: No adenopathy or JVD. CHEST: Few crackles in the bases. CARDIAC: S1 and S2 regular. ABDOMEN: Soft. EXTREMITIES: No edema. LABORATORY DATA: White blood cell count 13.9, hematocrit 29.7, platelet count 481. Sodium 139, pota ssium 4.6, chloride 107, CO2 of 21, BUN 16, creatinine 1.5, glucose 114. He had one culture that gre w out coag negative Staph from his right arm - this would probably be considered a contaminant. ASSESSMENT: 1. Hospital-acquired pneumonia. 2. Question of concurrent heart failure. RECOMMENDATIONS: We would continue with Zosyn and vancomycin. He has improved to the point where he can probably go back to rehabilitation on the antibiotics and complete 7 days.
[2017-07-11] MEDS: ALPRAZolam 0.25 MG TAB PO PRN (20:42)
[2017-07-11] MEDS: Atorvastatin Calcium 40 MG TAB PO SCH (20:42)
[2017-07-12] MEDS: Piperacillin/Tazobactam 3.375 GM in Sodium Chloride 0.9% 100 ML IVPB SCH ×5 (00:09→23:43)
[2017-07-12] MEDS: Acetaminophen 325 MG TAB PO PRN ×2 (03:52→23:43)
[2017-07-12 06:37] LABS: #Eosinphils 0.5 thou/uL (0.0-0.7); #Lymphocytes 1.2 thou/uL (1.20-3.40); #Monocytes 0.7 thou/uL (0.11-0.59); #Neutrophils 8.1 thou/uL (1.40-6.50); %Basophils 0.1 % (0.0-1.0); %Eosinophils 4.4 % (0.0-10.0); %Lymphocytes 11.6 % (21.0-51.0); %Monocytes 6.6 % (0.0-10.0); %Neutrophils 77.3 % (42.0-75.0); Hemoglobin 8.8 g/dL (14.0-18.0); Mean Corpuscular HGB CONC 31.8 g/dL (32.0-36.0); Mean Corpuscular Hemoglobin 32.2 pg (27.0-31.0); Mean Platelet Volume 6.9 fL (7.4-10.4); Platelet Count 424 thou/uL (130-400); RBC Distribution Width 12.4 % (11.5-14.5); Red Blood Cell (RBC) Count 2.74 mill/uL (4.70-6.10); White Blood Cell (WBC) Count 10.4 thou/uL (4.8-10.8)
[2017-07-12 06:49] LABS: Anion Gap 12 mmol/L (10-20); BUN (Urea Nitrogen) 15 mg/dL (8.4-25.7); Calc. Creatinine Clearance 48 mL/min (70-130); Calcium 9.4 mg/dL (7.8-10.44); Carbon Dioxide 21 mmol/L (23-31); Chloride 109 mmol/L (98-107); Estimated GFR-MDRD 47; Glucose 113 mg/dL (83-110); Potassium 4.3 mmol/L (3.5-5.1); Sodium 138 mmol/L (136-145)
[2017-07-12 08:44] LABS: Vancomycin, Trough 12.7 ug/mL
[2017-07-12] MEDS: Vancomycin HCl 1.25 GM in Sodium Chloride 0.9% 250 ML 250 ML IVPB SCH (09:00)
--- NOTE | 2017-07-12 09:41 | PDOC.PN ---
- Subjective Encounter Start Date: 07/12/17 Encounter Start Time: 07:00 Patient seen and examined. No new complaints. No overnight events - Objective Resuscitation Status: Resuscitation Status FULL:Full Resuscitation MAR Reviewed: Yes Vital Signs & Weight: Vital Signs (12 hours) Temp Pulse Resp BP BP Pulse Ox 07/12/17 07:06 87 20 92 L 07/12/17 04:00 98.2 F 91 18 120/79 97 07/12/17 00:00 98.3 F 91 18 154/72 H 93 L 07/11/17 23:48 92 L Weight Weight 195 lb 8.8 oz I&O: 07/11/17 07/12/17 07/13/17 06:59 06:59 06:59 Intake Total 700 1660 Output Total 600 300 Balance 100 1360 Result Diagrams: 07/12/17 05:46 07/12/17 05:46 EKG Reviewed by me: Yes (nsr) Phys Exam - Physical Examination Constitutional: NAD HEENT: PERRLA, moist MMs, sclera anicteric Neck: no JVD, supple Respiratory: no wheezing, no rales, no rhonchi Cardiovascular: RRR, no significant murmur, no rub Gastrointestinal: soft, non-tender, no distention, positive bowel sounds Musculoskeletal: no edema, pulses present Neurological: non-focal, normal sensation, moves all 4 limbs Lymphatic: no nodes Psychiatric: normal affect Skin: no rash, normal turgor Dx/Plan (1) Acute respiratory failure with hypoxia Code(s): J96.01 - ACUTE RESPIRATORY FAILURE WITH HYPOXIA Status: Acute (2) Healthcare associated bacterial pneumonia Code(s): J15.9 - UNSPECIFIED BACTERIAL PNEUMONIA Status: Acute (3) Physical deconditioning Code(s): R53.81 - OTHER MALAISE Status: Acute (4) Sepsis with acute organ dysfunction Code(s): A41.9 - SEPSIS, UNSPECIFIED ORGANISM; R65.20 - SEVERE SEPSIS WITHOUT SEPTIC SHOCK Status: Acute (5) Anxiety and depression Code(s): F41.8 - OTHER SPECIFIED ANXIETY DISORDERS Status: Chronic (6) BPH (benign prostatic hyperplasia) Code(s): N40.0 - BENIGN PROSTATIC HYPERPLASIA WITHOUT LOWER URINRY TRACT SYMP Status: Chronic (7) CAD (coronary artery disease) Code(s): I25.10 - ATHSCL HEART DISEASE OF [place] CORONARY ARTERY W/O ANG PCTRS Status: Chronic (8) Chronic systolic (congestive) heart failure Code(s): I50.22 - CHRONIC SYSTOLIC (CONGESTIVE) HEART FAILURE Status: Chronic (9) Dyslipidemia Code(s): E78.5 - HYPERLIPIDEMIA, UNSPECIFIED Status: Chronic (10) GERD (gastroesophageal reflux disease) Code(s): K21.9 - GASTRO-ESOPHAGEAL REFLUX DISEASE WITHOUT ESOPHAGITIS Status: Chronic (11) H/O: CVA (cerebrovascular accident) Code(s): Z86.73 - PRSNL HX OF TIA (TIA), AND CEREB INFRC W/O RESID DEFICITS Status: Chronic (12) Hypertension Code(s): I10 - ESSENTIAL (PRIMARY) HYPERTENSION Status: Chronic (13) Macrocytic anemia Code(s): D53.9 - NUTRITIONAL ANEMIA, UNSPECIFIED Status: Chronic (14) Seizure disorder Code(s): G40.909 - EPILEPSY, UNSP, NOT INTRACTABLE, WITHOUT STATUS EPILEPTICUS Status: Chronic (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 Review of Systems - Review of Systems Constitutional: weakness. negative: fever, chills, sweats, malaise, other ENT: negative: Ear Pain, Ear Discharge, Nose Pain, Nose Discharge, Nose Congestion, Mouth Pain, Mouth Swelling, Throat Pain, Throat Swelling, Other Respiratory: negative: Cough, Dry, Shortness of Breath, Hemoptysis, SOB with Excertion, Pleuritic Pain, Sputum, Wheezing Cardiovascular: negative: chest pain, palpitations, orthopnea, paroxysmal nocturnal dyspnea, edema, light headedness, other Gastrointestinal: negative: Nausea, Vomiting, Abdominal Pain, Diarrhea, Constipation, Melena, Hematochezia, Other Genitourinary: negative: Dysuria, Frequency, Incontinence, Hematuria, Retention , Other Musculoskeletal: negative: Neck Pain, Shoulder Pain, Arm Pain, Back Pain, Hand Pain, Leg Pain, Foot Pain, Other Skin: negative: Rash, Lesions, Jean, Bruising, Other - Medications/Allergies Allergies/Adverse Reactions: Allergies Allergy/AdvReac Type Severity Reaction Status Date / Time morphine Allergy Intermediate AGITATION Verified 06/12/17 12:26 codeine Allergy excessive Verified 06/12/17 12:26 anxiety Chemicals Allergy Uncoded 06/19/17 11:01 Colognes Allergy Uncoded 06/19/17 11:01 Medications: Current Medications Acetaminophen (Tylenol) 650 mg PO Q4H PRN PRN Reason: Headache/Fever or Pain Last Admin: 07/12/17 03:52 Dose: 650 mg Al Hydroxide/Mg Hydroxide (Maalox) 30 ml PO Q6H PRN PRN Reason: Heartburn or Indigestion Albuterol/Ipratropium (Duoneb) 3 ml NEB [id number] [facility] Last Admin: 07/12/17 07:06 Dose: 3 ml Albuterol/Ipratropium (Duoneb) 3 ml NEB [id number] PRN PRN Reason: SOB &/or Wheezing Alprazolam (Xanax) 0.25 mg PO HSPRN PRN PRN Reason: Anxiety/Insomnia Last Admin: 07/11/17 20:42 Dose: 0.25 mg Amiodarone HCl (Cordarone) 400 mg PO QAM [facility] Last Admin: 07/11/17 12:33 Dose: 400 mg Artificial Tears (Tears Naturale) 0 drop EA EYE PRN PRN PRN Reason: Dry Eyes Aspirin (Aspirin) 325 mg PO DAILY [facility] Last Admin: 07/11/17 12:35 Dose: 325 mg Atorvastatin Calcium (Lipitor) 40 mg PO HS [facility] Last Admin: 07/11/17 20:42 Dose: 40 mg Cholecalciferol (Vitamin D3) 2,000 units PO DAILY [facility] Last Admin: 07/11/17 12:34 Dose: 2,000 units Clonazepam (Klonopin) 0.5 mg PO DAILY [facility] Last Admin: 07/11/17 12:35 Dose: 0.5 mg Coenzyme Q10 (Coenzyme Q10) 100 mg PO DAILY [facility] Last Admin: 07/11/17 12:34 Dose: 100 mg Cyanocobalamin (Vitamin B-12) 1,000 mcg PO DAILY [facility] Last Admin: 07/11/17 12:34 Dose: 1,000 mcg Enoxaparin Sodium (Lovenox) 40 mg SC 0900 [facility] Last Admin: 07/11/17 12:33 Dose: 40 mg Ferrous Sulfate (Feosol) 325 mg PO QAM-WM [facility] Last Admin: 07/11/17 12:35 Dose: 325 mg Folic Acid (Folvite) 1 mg PO DAILY [facility] Last Admin: 07/11/17 12:35 Dose: 1 mg Guaifenesin (Robitussin Sf) 200 mg PO Q4H PRN PRN Reason: Cough Hydralazine HCl (Apresoline) 10 mg SLOW IVP Q4H PRN PRN Reason: Systolic BP > 180 Piperacillin Sod/Tazobactam (Sod 3.375 gm/ Sodium Chloride) 100 mls @ 200 mls/ hr IVPB Q6HR [facility] Last Admin: 07/12/17 05:50 Dose: 100 mls Vancomycin HCl 1.5 gm/ Sodium (Chloride) 300 mls @ 200 mls/hr IVPB 1000 [facility] Iron/Minerals/Multivitamins (Theragran M) 1 tab PO DAILY [facility] Last Admin: 07/11/17 12:35 Dose: 1 tab Levetiracetam (Keppra) 500 mg PO BID [facility] Last Admin: 07/11/17 20:43 Dose: 500 mg Loperamide HCl (Imodium) 2 mg PO PRN PRN PRN Reason: Diarrhea/Loose Stools Loratadine (Claritin) 10 mg PO DAILYPRN PRN PRN Reason: Sinus Symptoms Magnesium Hydroxide (Milk Of Magnesium) 30 ml PO DAILYPRN PRN PRN Reason: Constipation Metoclopramide HCl (Reglan) 5 mg IVP Q4H PRN PRN Reason: Nausea Mineral Oil/White Petrolatum (Eucerin Cream) 0 gm TOP BIDPRN PRN PRN Reason: Dry Skin Miscellaneous Medication (Pharmacy To Dose) 0 each IVPB ASDIR PRN PRN Reason: Pharmacy to Dose VANCOMYCIN Nitroglycerin (Nitrostat) 0.4 mg SL Q5MIN PRN PRN Reason: Chest Pain Pantoprazole Sodium (Protonix) 40 mg PO DAILY [facility] Last Admin: 07/11/17 12:34 Dose: 40 mg Phenol (Chloraseptic [place] 180 Ml Bot) 0 ml PO PRN PRN PRN Reason: Sore Throat Saccharomyces Boulardii (Florastor) 250 mg PO DAILY [facility] Last Admin: 07/11/17 12:33 Dose: 250 mg Senna (Senokot) 2 tab PO HSPRN PRN PRN Reason: Constipation Sodium Chloride ([place] Nasal [place] 0.65%) 0 ml EA NARE QIDPRN PRN PRN Reason: Nasal Congestion Tamsulosin HCl (Flomax) 0.4 mg PO DAILY [facility] Last Admin: 07/11/17 12:34 Dose: 0.4 mg
[2017-07-12] MEDS: Enoxaparin Sodium 40 MG/0.4 ML SYRINGE SC SCH (11:37)
[2017-07-12] MEDS: Saccharomyces boulardii 250 MG CAP PO SCH (11:38)
[2017-07-12] MEDS: Ubidecarenone 50 MG CAP PO SCH (11:38)
[2017-07-12] MEDS: Amiodarone 200 MG TAB PO SCH (11:38)
[2017-07-12] MEDS: Aspirin 325 MG TAB PO SCH (11:38)
[2017-07-12] MEDS: clonazePAM 0.5 MG TAB PO SCH (11:39)
[2017-07-12] MEDS: Ferrous Sulfate 325 MG TAB PO SCH (11:39)
[2017-07-12] MEDS: Cyanocobalamin (Vitamin B-12) 1,000 MCG TAB PO SCH (11:40)
[2017-07-12] MEDS: levETIRAcetam 500 MG TAB PO SCH ×2 (11:40→21:12)
[2017-07-12] MEDS: Tamsulosin HCl 0.4 MG CAP PO SCH (11:40)
[2017-07-12] MEDS: Folic Acid 1 MG TAB PO SCH (11:40)
[2017-07-12] MEDS: Multivitamin W/ Minerals 1 TAB PO SCH (11:40)
--- NOTE | 2017-07-12 13:30 | PRG ---
DATE OF SERVICE: 07/12/2017 SUBJECTIVE: He is feeling much better and had no acute complaints today. OBJECTIVE: VITAL SIGNS: Temperature is 98.2, pulse 87, respiration 20, and O2 saturation 92% on 3 liters. HEENT: Unremarkable. NECK: No JVD. CHEST: Fairly clear without wheezing. CARDIOVASCULAR: S1 and S2, regular. ABDOMEN: Soft. EXTREMITIES: No edema. LABORATORY DATA: White blood cell count 10, hematocrit 27.8, and platelet count 424. Sodium 130, po tassium 4.3, chloride 109, CO2 of 21, BUN 15, creatinine 1.4, and glucose 113. ASSESSMENT: 1. Improved respiratory status. 2. Hospital acquired pneumonia. PLAN: I think he is cleared to go back to rehab at anytime. He needs to finish out 7 days of vancom ycin and Zosyn - this can be given over rehabilitation.
[2017-07-12] MEDS: Vancomycin HCl 1.5 GM in Sodium Chloride 0.9% 250 ML 300 ML IVPB SCH (15:48)
[2017-07-12] MEDS: ALPRAZolam 0.25 MG TAB PO PRN (21:13)
[2017-07-12] MEDS: Atorvastatin Calcium 40 MG TAB PO SCH (21:13)
[2017-07-13] MEDS: Piperacillin/Tazobactam 3.375 GM in Sodium Chloride 0.9% 100 ML IVPB SCH ×3 (05:40→16:47)
[2017-07-13] MEDS: Tamsulosin HCl 0.4 MG CAP PO SCH (09:39)
[2017-07-13] MEDS: Enoxaparin Sodium 40 MG/0.4 ML SYRINGE SC SCH (09:39)
[2017-07-13] MEDS: Cyanocobalamin (Vitamin B-12) 1,000 MCG TAB PO SCH (09:39)
[2017-07-13] MEDS: Ubidecarenone 50 MG CAP PO SCH (09:39)
[2017-07-13] MEDS: Saccharomyces boulardii 250 MG CAP PO SCH (09:39)
[2017-07-13] MEDS: Aspirin 325 MG TAB PO SCH (09:40)
[2017-07-13] MEDS: levETIRAcetam 500 MG TAB PO SCH (09:40)
[2017-07-13] MEDS: Multivitamin W/ Minerals 1 TAB PO SCH (09:40)
[2017-07-13] MEDS: clonazePAM 0.5 MG TAB PO SCH (09:41)
[2017-07-13] MEDS: Ferrous Sulfate 325 MG TAB PO SCH (09:41)
[2017-07-13] MEDS: Amiodarone 200 MG TAB PO SCH (09:41)
--- NOTE | 2017-07-13 09:47 | PDOC.PN ---
- Subjective Encounter Start Date: 07/13/17 Encounter Start Time: 07:30 Patient seen and examined. No new complaints. No overnight events - Objective Resuscitation Status: Resuscitation Status FULL:Full Resuscitation MAR Reviewed: Yes Vital Signs & Weight: Vital Signs (12 hours) Temp Pulse Resp BP Pulse Ox 07/13/17 04:00 98.4 F 93 18 131/78 95 07/13/17 00:05 95 07/12/17 23:59 98.4 F 99 20 133/77 99 Weight Weight 194 lb 14.218 oz I&O: 07/12/17 07/13/17 07/14/17 06:59 06:59 06:59 Intake Total 1660 1820 Output Total 300 680 Balance 1360 1140 Result Diagrams: 07/12/17 05:46 07/12/17 05:46 EKG Reviewed by me: Yes (nsr) Phys Exam - Physical Examination Constitutional: NAD HEENT: PERRLA, moist MMs, sclera anicteric Neck: no JVD, supple Respiratory: no wheezing, no rales, no rhonchi Cardiovascular: RRR, no significant murmur, no rub Gastrointestinal: soft, non-tender, no distention, positive bowel sounds Musculoskeletal: no edema, pulses present Neurological: non-focal, normal sensation Lymphatic: no nodes Psychiatric: normal affect Skin: no rash, normal turgor Dx/Plan (1) Acute respiratory failure with hypoxia Code(s): J96.01 - ACUTE RESPIRATORY FAILURE WITH HYPOXIA Status: Acute (2) Healthcare associated bacterial pneumonia Code(s): J15.9 - UNSPECIFIED BACTERIAL PNEUMONIA Status: Acute (3) Physical deconditioning Code(s): R53.81 - OTHER MALAISE Status: Acute (4) Sepsis with acute organ dysfunction Code(s): A41.9 - SEPSIS, UNSPECIFIED ORGANISM; R65.20 - SEVERE SEPSIS WITHOUT SEPTIC SHOCK Status: Acute (5) Anxiety and depression Code(s): F41.8 - OTHER SPECIFIED ANXIETY DISORDERS Status: Chronic (6) BPH (benign prostatic hyperplasia) Code(s): N40.0 - BENIGN PROSTATIC HYPERPLASIA WITHOUT LOWER URINRY TRACT SYMP Status: Chronic (7) CAD (coronary artery disease) Code(s): I25.10 - ATHSCL HEART DISEASE OF [place] CORONARY ARTERY W/O ANG PCTRS Status: Chronic (8) Chronic systolic (congestive) heart failure Code(s): I50.22 - CHRONIC SYSTOLIC (CONGESTIVE) HEART FAILURE Status: Chronic (9) Dyslipidemia Code(s): E78.5 - HYPERLIPIDEMIA, UNSPECIFIED Status: Chronic (10) GERD (gastroesophageal reflux disease) Code(s): K21.9 - GASTRO-ESOPHAGEAL REFLUX DISEASE WITHOUT ESOPHAGITIS Status: Chronic (11) H/O: CVA (cerebrovascular accident) Code(s): Z86.73 - PRSNL HX OF TIA (TIA), AND CEREB INFRC W/O RESID DEFICITS Status: Chronic (12) Hypertension Code(s): I10 - ESSENTIAL (PRIMARY) HYPERTENSION Status: Chronic (13) Macrocytic anemia Code(s): D53.9 - NUTRITIONAL ANEMIA, UNSPECIFIED Status: Chronic (14) Seizure disorder Code(s): G40.909 - EPILEPSY, UNSP, NOT INTRACTABLE, WITHOUT STATUS EPILEPTICUS Status: Chronic (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 Review of Systems - Review of Systems Constitutional: negative: fever, chills, sweats, weakness, malaise, other Eyes: negative: Pain, Vision Change, Conjunctivae Inflammation, Eyelid Inflammation, Redness, Other ENT: negative: Ear Pain, Ear Discharge, Nose Pain, Nose Discharge, Nose Congestion, Mouth Pain, Mouth Swelling, Throat Pain, Throat Swelling, Other Respiratory: Cough. negative: Dry, Shortness of Breath, Hemoptysis, SOB with Excertion, Pleuritic Pain, Sputum, Wheezing Cardiovascular: negative: chest pain, palpitations, orthopnea, paroxysmal nocturnal dyspnea, edema, light headedness, other Gastrointestinal: negative: Nausea, Vomiting, Abdominal Pain, Diarrhea, Constipation, Melena, Hematochezia, Other Genitourinary: negative: Dysuria, Frequency, Incontinence, Hematuria, Retention , Other Musculoskeletal: negative: Neck Pain, Shoulder Pain, Arm Pain, Back Pain, Hand Pain, Leg Pain, Foot Pain, Other Skin: negative: Rash, Lesions, Jean, Bruising, Other - Medications/Allergies Allergies/Adverse Reactions: Allergies Allergy/AdvReac Type Severity Reaction Status Date / Time morphine Allergy Intermediate AGITATION Verified 06/12/17 12:26 codeine Allergy excessive Verified 06/12/17 12:26 anxiety Chemicals Allergy Uncoded 06/19/17 11:01 Colognes Allergy Uncoded 06/19/17 11:01 Medications: Current Medications Acetaminophen (Tylenol) 650 mg PO Q4H PRN PRN Reason: Headache/Fever or Pain Last Admin: 07/12/17 23:43 Dose: 650 mg Al Hydroxide/Mg Hydroxide (Maalox) 30 ml PO Q6H PRN PRN Reason: Heartburn or Indigestion Albuterol/Ipratropium (Duoneb) 3 ml NEB [id number] [facility] Last Admin: 07/13/17 00:05 Dose: 3 ml Albuterol/Ipratropium (Duoneb) 3 ml NEB [id number] PRN PRN Reason: SOB &/or Wheezing Alprazolam (Xanax) 0.25 mg PO HSPRN PRN PRN Reason: Anxiety/Insomnia Last Admin: 07/12/17 21:13 Dose: 0.25 mg Amiodarone HCl (Cordarone) 400 mg PO QAM [facility] Last Admin: 07/13/17 09:41 Dose: 400 mg Artificial Tears (Tears Naturale) 0 drop EA EYE PRN PRN PRN Reason: Dry Eyes Aspirin (Aspirin) 325 mg PO DAILY [facility] Last Admin: 07/13/17 09:40 Dose: 325 mg Atorvastatin Calcium (Lipitor) 40 mg PO HS [facility] Last Admin: 07/12/17 21:13 Dose: 40 mg Cholecalciferol (Vitamin D3) 2,000 units PO DAILY [facility] Last Admin: 07/13/17 09:41 Dose: 2,000 units Clonazepam (Klonopin) 0.5 mg PO DAILY [facility] Last Admin: 07/13/17 09:41 Dose: 0.5 mg Coenzyme Q10 (Coenzyme Q10) 100 mg PO DAILY [facility] Last Admin: 07/13/17 09:39 Dose: 100 mg Cyanocobalamin (Vitamin B-12) 1,000 mcg PO DAILY [facility] Last Admin: 07/13/17 09:39 Dose: 1,000 mcg Enoxaparin Sodium (Lovenox) 40 mg SC 0900 [facility] Last Admin: 07/13/17 09:39 Dose: 40 mg Ferrous Sulfate (Feosol) 325 mg PO QAM[facility] Last Admin: 07/13/17 09:41 Dose: 325 mg Folic Acid (Folvite) 1 mg PO DAILY [facility] Last Admin: 07/12/17 11:40 Dose: 1 mg Guaifenesin (Robitussin Sf) 200 mg PO Q4H PRN PRN Reason: Cough Hydralazine HCl (Apresoline) 10 mg SLOW IVP Q4H PRN PRN Reason: Systolic BP > 180 Piperacillin Sod/Tazobactam (Sod 3.375 gm/ Sodium Chloride) 100 mls @ 200 mls/ hr IVPB Q6HR [facility] Last Admin: 07/13/17 05:40 Dose: 100 mls Vancomycin HCl 1.5 gm/ Sodium (Chloride) 300 mls @ 200 mls/hr IVPB 1000 [facility] Last Admin: 07/12/17 15:48 Dose: 300 mls Iron/Minerals/Multivitamins (Theragran M) 1 tab PO DAILY [facility] Last Admin: 07/13/17 09:40 Dose: 1 tab Levetiracetam (Keppra) 500 mg PO BID [facility] Last Admin: 07/13/17 09:40 Dose: 500 mg Loperamide HCl (Imodium) 2 mg PO PRN PRN PRN Reason: Diarrhea/Loose Stools Loratadine (Claritin) 10 mg PO DAILYPRN PRN PRN Reason: Sinus Symptoms Magnesium Hydroxide (Milk Of Magnesium) 30 ml PO DAILYPRN PRN PRN Reason: Constipation Metoclopramide HCl (Reglan) 5 mg IVP Q4H PRN PRN Reason: Nausea Mineral Oil/White Petrolatum (Eucerin Cream) 0 gm TOP BIDPRN PRN PRN Reason: Dry Skin Miscellaneous Medication (Pharmacy To Dose) 0 each IVPB ASDIR PRN PRN Reason: Pharmacy to Dose VANCOMYCIN Nitroglycerin (Nitrostat) 0.4 mg SL Q5MIN PRN PRN Reason: Chest Pain Pantoprazole Sodium (Protonix) 40 mg PO DAILY [facility] Last Admin: 07/13/17 09:41 Dose: 40 mg Phenol (Chloraseptic [place] 180 Ml Bot) 0 ml PO PRN PRN PRN Reason: Sore Throat Saccharomyces Boulardii (Florastor) 250 mg PO DAILY [facility] Last Admin: 07/13/17 09:39 Dose: 250 mg Senna (Senokot) 2 tab PO HSPRN PRN PRN Reason: Constipation Sodium Chloride ([place] Nasal [place] 0.65%) 0 ml EA NARE QIDPRN PRN PRN Reason: Nasal Congestion Tamsulosin HCl (Flomax) 0.4 mg PO DAILY [facility] Last Admin: 07/13/17 09:39 Dose: 0.4 mg
[2017-07-13] MEDS: Folic Acid 1 MG TAB PO SCH (10:05)
[2017-07-13] MEDS: Vancomycin HCl 1.5 GM in Sodium Chloride 0.9% 250 ML 300 ML IVPB SCH (10:05)
--- NOTE | 2017-07-13 11:07 | DIS ---
DATE OF ADMISSION: 07/10/2017 DATE OF DISCHARGE: 07/13/2017 PRIMARY CARE PHYSICIAN: Vick Kc M.D. DISCHARGE DISPOSITION: Inpatient rehabilitation. PRIMARY DISCHARGE DIAGNOSES: 1. Acute respiratory failure with hypoxia. 2. Healthcare associated bacterial pneumonia. 3. Sepsis with acute organ dysfunction. 4. Lactic acidosis. SECONDARY DISCHARGE DIAGNOSES: Chronic physical deconditioning, anxiety and depression, benign enlar gement of prostate, coronary artery disease, chronic systolic heart failure, dyslipidemia, gastroesop hageal reflux disease, history of cerebrovascular accident, hypertension, macrocytic anemia, seizure disorder, Alzheimer's dementia, ventricular tachyarrhythmia. PRIMARY PROCEDURE/OPERATION: None. RADIOLOGICAL INVESTIGATION: Chest x-ray on admission showed bibasilar pneumonia. SIGNIFICANT LABORATORY DATA: Hemoglobin 8.8, WBC 10.4, MCV 101, platelets 424. Sodium 138, potassiu m 4.3, BUN 15, creatinine 1.44, calcium 9.4. LFT normal. Lactic acid 1.7. Blood culture negative a nd influenza negative. DISCHARGE MEDICATIONS: The patient will continue vancomycin 1.5 gram IV daily for another 5 days. P atient will continue Zosyn 3.375 gram IV q.6 hourly for another 5 days. The patient will continue fo llowing medications: Xanax 0.25 mg p.o. at bedtime p.r.n., Cordarone 400 mg p.o. daily, aspirin 325 mg p.o. daily, Lipitor 40 mg p.o. at bedtime, vitamin D3 2000 units p.o. daily, Klonopin 0.5 mg p.o. daily, vitamin B12 1000 mcg p.o. daily, Aricept 10 mg p.o. at bedtime, ferrous sulfate 325 mg p.o. da gallito, folic acid 1 mg p.o. daily, Keppra 500 mg p.o. b.i.d., Claritin-D 1 tablet p.o. daily p.r.n., Co zaar 50 mg p.o. daily, metoprolol tartrate 50 mg p.o. b.i.d., multivitamin 1 tablet p.o. daily, omepr azole 40 mg p.o. daily, Florastor 250 mg p.o. daily for 7 days, Metamucil 2 teaspoons full daily, Zol oft 100 mg p.o. daily, Flomax 0.4 mg p.o. daily, CoQ10 100 mg p.o. daily. Now this admission, we are changing his metoprolol tartrate to Toprol-XL 150 mg for his systolic heart failure. CONTRAINDICATIONS: None. CODE STATUS: FULL CODE. INPATIENT ROTARY MACHINE OPERATOR: Dr. Damon was seeing this patient while in hospital. TEST RESULTS PENDING ON DISCHARGE: None. ALLERGIES: CODEINE and MORPHINE. DISCHARGE PLAN: Post hospital, patient will be discharged to inpatient rehabilitation for more PT, O T. The patient will follow up with primary care physician. HOSPITAL COURSE: An 86-year-old male who was admitted by me. Please see my HPI for further details. This patient was sent from [facility] for increasing shortness of breath and hypoxia. This patient had recently CABG done and subsequently he was discharged to [facility] where he devel oped increasing shortness of breath, cough, and hypoxia. The patient was diagnosed with acute hypoxi c respiratory failure. He was meeting sepsis with acute organ dysfunction criteria, he was relativel y hypotensive. His chest x-ray was consistent with bibasilar pneumonia. He was initially admitted i [facility]. Pulmonary Team saw this patient. Patient's influenza screen was negative. We transferred him to medical floor upon stabilization. Wh ile in hospital, we treated him with IV antibiotic therapy with vancomycin and Zosyn. On discharge, we changed to vancomycin and Zosyn for another 5 days at [facility]. While in hospital, he wa s receiving IV antibiotic therapy. Dr. Damon recommended to finish IV antibiotic therapy for 7 day s at rehabilitation. This patient will need IV antibiotic therapy for 5 more days. He will need weaning of oxygen over at rehab. He will need PT/OT. Rest of the medications will be continued at rehabilitation. At this time we changed his Toprol to Toprol-XL because of his chronic systolic heart failure. Otherwis e, the patient is doing well. I spoke with patient's about plan of care. Paperwork for dischar ge done. Discharge medication reconciliation done. The patient is seen and examined at bedside toamanda y. Total time spent to arrange this discharge is more than 30 minutes.
[2017-07-13 17:22] VITALS: BP 156/79; TEMP 98
== END 2017-07-13 18:07 | DRG 871 ==
LOC: ERS 01:19 → IMCU/EMU 04:21 → 2NO 15:48
PROVIDERS: ADMIT Family Medicine; ATTEND Family Medicine
DX: A41.9 Sepsis, unspecified organism (principal); J15.9 Unspecified bacterial pneumonia; J96.01 Acute respiratory failure with hypoxia; I47.2 Ventricular tachycardia; L89.151 Pressure ulcer of sacral region, stage 1; N18.3 Chronic kidney disease, stage 3 (moderate); I13.0 Hypertensive heart and chronic kidney disease with heart failure and stage 1 through stage 4 chronic kidney disease, or unspecified chronic kidney disease; E87.2 Acidosis; I50.22 Chronic systolic (congestive) heart failure; G30.9 Alzheimer's disease, unspecified; I25.5 Ischemic cardiomyopathy; F02.80 Dementia in other diseases classified elsewhere, unspecified severity, without behavioral disturbance, psychotic disturbance, mood disturbance, and anxiety; I25.10 Atherosclerotic heart disease of native coronary artery without angina pectoris; D53.9 Nutritional anemia, unspecified; D64.9 Anemia, unspecified; R65.20 Severe sepsis without septic shock; F41.9 Anxiety disorder, unspecified; Z86.73 Personal history of transient ischemic attack (TIA), and cerebral infarction without residual deficits; G40.909 Epilepsy, unspecified, not intractable, without status epilepticus; F41.8 Other specified anxiety disorders; N40.0 Benign prostatic hyperplasia without lower urinary tract symptoms; E78.5 Hyperlipidemia, unspecified; K21.9 Gastro-esophageal reflux disease without esophagitis; Z95.1 Presence of aortocoronary bypass graft
CPT/HCPCS: 36415; 71010; 80048; 80053; 80202; 82553; 83605; 83735; 83880; 84484; 85025; 87040; 87149; 93005; 94640; 94760; 96365; 96367; G8996-GN-CK; G8997-GN-CI; G8997-GN-CJ; J1650; J2543; J3370; J7050; J7620

== ENCOUNTER 2017-08-13 13:35 | Emergency (ER) | payer MEDICARE ==
[2017-08-13 14:16] LABS: #Basophils 0.1 thou/uL (0.0-0.2); #Eosinphils 0.1 thou/uL (0.0-0.7); #Lymphocytes 1.5 thou/uL (1.20-3.40); #Monocytes 0.5 thou/uL (0.11-0.59); #Neutrophils 4.6 thou/uL (1.40-6.50); %Eosinophils 1.8 % (0.0-10.0); %Lymphocytes 22.3 % (21.0-51.0); %Monocytes 7.6 % (0.0-10.0); %Neutrophils 67.4 % (42.0-75.0); Hemoglobin 11.2 g/dL (14.0-18.0); Mean Corpuscular HGB CONC 31.5 g/dL (32.0-36.0); Mean Corpuscular Hemoglobin 31.5 pg (27.0-31.0); Mean Corpuscular Volume 99.9 fl (80.0-94.0); Mean Platelet Volume 7.2 fL (7.4-10.4); Platelet Count 209 thou/uL (130-400); Red Blood Cell (RBC) Count 3.54 mill/uL (4.70-6.10); White Blood Cell (WBC) Count 6.8 thou/uL (4.8-10.8)
[2017-08-13 14:36] LABS: ALT (SGPT) 22 U/L (8-55); AST (SGOT) 24 U/L (5-34); Albumin 2.7 g/dL (3.4-4.8); Alkaline Phosphatase 117 U/L (40-150); Anion Gap 13 mmol/L (10-20); BUN (Urea Nitrogen) 16 mg/dL (8.4-25.7); Bilirubin, Total 0.4 mg/dL (0.2-1.2); CK (CPK) 26 U/L (30-200); Calc. Creatinine Clearance 0 mL/min (70-130); Calcium 8.8 mg/dL (7.8-10.44); Carbon Dioxide 22 mmol/L (23-31); Chloride 108 mmol/L (98-107); Estimated GFR-MDRD 32; Glucose 141 mg/dL (83-110); Potassium 4.7 mmol/L (3.5-5.1); Protein, Total 5.7 g/dL (5.8-8.1); Sodium 138 mmol/L (136-145)
[2017-08-13 14:39] LABS: CKMB 1.4 ng/mL (0-6.6); Troponin I 0.042 ng/mL (< 0.028)
--- NOTE | 2017-08-13 14:50 | RAD ---
AP VIEW CHEST: Date: 08/13/17 INDICATION: Emergency examination. History of orthostatic hypotension and weakness. FINDINGS: The exam is compared to prior dated 07/10/17 and 07/19/17. Cardiomegaly is stable. No focal consolidation is evident. Dual lead pacemaker is similar. Post CABG change is similar. No pneumothorax is evident. IMPRESSION: No acute cardiopulmonary abnormality. POS: [facility]
--- NOTE | 2017-08-15 17:36 | EKG ---
Test Reason : Blood Pressure : / mmHG Vent. Rate : 063 BPM Atrial Rate : 064 BPM P-R Int : 000 ms QRS Dur : 104 ms QT Int : 448 ms P-R-T Axes : -06 -49 262 degrees QTc Int : 458 ms Atrial paced rhythm Incomplete right bundle branch block Left anterior fascicular block Cannot rule out Anterior infarct , age undetermined Abnormal ECG Confirmed by MARYANN MARIN D.O. ([id number]), film editor supervisor SHANI COVARRUBIAS ([id number]) on 08/15/2017 5:35:53 PM Referred By: Confirmed By:MARYANN MARIN D.O.
== END 2017-08-13 15:45 | disposition home or self-care (01) ==
LOC: ERS 13:35
DX: E86.0 Dehydration (principal); I25.10 Atherosclerotic heart disease of native coronary artery without angina pectoris; Z79.899 Other long term (current) drug therapy; Z79.82 Long term (current) use of aspirin
CPT/HCPCS: 36415; 71045; 80053; 82550; 82553; 84484; 85025; 93005; 94760; 96360

== ENCOUNTER 2017-12-18 09:52 | Emergency (ER) | payer MEDICARE ==
[2017-12-18] MEDS ORDERED: Lidocaine 4% Cream 5 GM TUBE w/ Tegaderm ONE ×2 (10:16)
--- NOTE | 2017-12-18 11:01 | CT ---
CT HEAD NONCONTRAST DATE: 12/18/17 HISTORY: Fall. Head injury. FINDINGS: There is no evidence of acute intracranial hemorrhage or infarct. The ventricles appear normal in siz e, shape, and position. Diffuse cortical atrophy is present with chronic ischemic small vessel diseas e. Encephalomalacia extending to the cortex of the left frontal lobe is consistent with an old area o f infarct. No displaced skull fractures. Visualized paranasal sinuses remain well aerated. Prominent soft tissue swelling and extracranial hematoma project over the left frontal calvarium. IMPRESSION: No acute intracranial abnormalities are demonstrated. POS: [facility]
--- NOTE | 2017-12-18 11:13 | CT ---
CT FACE NONCONTRAST: Date: 12/18/17 HISTORY: Fall. Facial injury. FINDINGS: Large extracranial scalp hematoma over the left supraorbital calvarium. Visualized paranasal sinuses remain well aerated. The mandible, globes, and zygomatic arches are intact. Calcification in the arterial structures. Degenerative changes cervical spine. IMPRESSION: 1. No acute osseous abnormalities are demonstrated. 2. Atherosclerosis. POS: [facility]
== END 2017-12-18 11:52 | disposition home or self-care (01) ==
LOC: ERS 09:52
DX: S01.112A Laceration without foreign body of left eyelid and periocular area, initial encounter (principal); S51.802A Unspecified open wound of left forearm, initial encounter; I49.9 Cardiac arrhythmia, unspecified; I25.10 Atherosclerotic heart disease of native coronary artery without angina pectoris; Z79.82 Long term (current) use of aspirin; Z79.899 Other long term (current) drug therapy; W19.XXXA Unspecified fall, initial encounter
CPT/HCPCS: 12011; 70450; 70486

== ENCOUNTER 2020-07-22 00:04 | Inpatient (IN) | payer MEDICARE ==
[2020-07-22 00:39] LABS: #Eosinphils 0.1 thou/uL (0.0-0.7); #Lymphocytes 1.8 thou/uL (1.20-3.40); #Monocytes 0.7 thou/uL (0.11-0.59); #Neutrophils 8.2 thou/uL (1.40-6.50); %Basophils 0.3 % (0.0-1.0); %Eosinophils 0.6 % (0.0-10.0); %Lymphocytes 16.4 % (21.0-51.0); %Monocytes 6.1 % (0.0-10.0); %Neutrophils 76.5 % (42.0-75.0); Hemoglobin 14.6 g/dL (14.0-18.0); Mean Corpuscular HGB CONC 33.8 g/dL (32.0-36.0); Mean Corpuscular Hemoglobin 33.2 pg (27.0-31.0); Mean Corpuscular Volume 98.4 fL (78.0-98.0); Mean Platelet Volume 7.4 fL (7.4-10.4); Platelet Count 163 thou/uL (130-400); RBC Distribution Width 11.6 % (11.5-14.5); Red Blood Cell (RBC) Count 4.38 mill/uL (4.70-6.10); White Blood Cell (WBC) Count 10.7 thou/uL (4.8-10.8)
[2020-07-22 01:01] LABS: ALT (SGPT) 18 U/L (8-55); AST (SGOT) 25 U/L (5-34); Albumin 3.5 g/dL (3.4-4.8); Alkaline Phosphatase 76 U/L (40-110); Anion Gap 14 mmol/L (10-20); BUN (Urea Nitrogen) 21 mg/dL (8.4-25.7); Bilirubin, Total 0.5 mg/dL (0.2-1.2); Calc. Creatinine Clearance 0 mL/min (70-130); Calcium 9.8 mg/dL (7.8-10.44); Carbon Dioxide 24 mmol/L (23-31); Chloride 105 mmol/L (98-107); Globulin 3.7 g/dL (2.4-3.5); Glucose 143 mg/dL (83-110); Potassium 4.4 mmol/L (3.5-5.1); Protein, Total 7.2 g/dL (5.8-8.1); Sodium 139 mmol/L (136-145)
[2020-07-22] MEDS ORDERED: Acetaminophen 500 MG TAB ONE (01:55)
[2020-07-22] MEDS ORDERED: diphenhydrAMINE 50 MG/ML VIAL ONE (02:08)
[2020-07-22] MEDS ORDERED: Ondansetron PF 4 MG/2 ML Vial IVP PRN (03:09)
[2020-07-22] MEDS ORDERED: Dextrose 50% Abboject 50 ML SYRINGE SLOW IVP PRN (03:09)
[2020-07-22] MEDS ORDERED: Dextrose 5% in Water 1,000 ML IV PRN (03:09)
[2020-07-22] MEDS ORDERED: Ondansetron ODT 4 MG TAB PO PRN (03:09)
[2020-07-22] MEDS ORDERED: hydrALAZINE 20 MG/ML VIAL SLOW IVP PRN (03:09)
[2020-07-22] MEDS ORDERED: Morphine 2 MG/ML VIAL SLOW IVP PRN (03:09)
[2020-07-22] MEDS ORDERED: traMADol HCl 50 MG TAB PO PRN ×2 (03:09)
[2020-07-22] MEDS ORDERED: Cyclobenzaprine 10 MG TAB PO PRN (03:09)
[2020-07-22] MEDS ORDERED: Sodium Chloride 0.9% 1,000 ML IV SCH (03:09)
[2020-07-22 03:21] VITALS: BMI 27.6
[2020-07-22] MEDS: Ibuprofen 600 MG TAB PO SCH ×4 (04:53→22:41)
[2020-07-22] MEDS: Acetaminophen 325 MG TAB PO SCH ×4 (04:53→22:41)
[2020-07-22 05:46] LABS: #Lymphocytes 1.6 thou/uL (1.20-3.40); #Monocytes 0.9 thou/uL (0.11-0.59); #Neutrophils 10.4 thou/uL (1.40-6.50); %Basophils 0.1 % (0.0-1.0); %Eosinophils 0.3 % (0.0-10.0); %Lymphocytes 12.3 % (21.0-51.0); %Monocytes 6.7 % (0.0-10.0); %Neutrophils 80.5 % (42.0-75.0); Hemoglobin 14.4 g/dL (14.0-18.0); Mean Corpuscular HGB CONC 33.3 g/dL (32.0-36.0); Mean Corpuscular Hemoglobin 32.6 pg (27.0-31.0); Mean Corpuscular Volume 97.7 fL (78.0-98.0); Mean Platelet Volume 7.4 fL (7.4-10.4); Platelet Count 163 thou/uL (130-400); RBC Distribution Width 11.8 % (11.5-14.5); Red Blood Cell (RBC) Count 4.43 mill/uL (4.70-6.10); White Blood Cell (WBC) Count 12.9 thou/uL (4.8-10.8)
[2020-07-22 06:08] LABS: Anion Gap 16 mmol/L (10-20); BUN (Urea Nitrogen) 22 mg/dL (8.4-25.7); Calc. Creatinine Clearance 42 mL/min (70-130); Calcium 9.6 mg/dL (7.8-10.44); Carbon Dioxide 20 mmol/L (23-31); Chloride 106 mmol/L (98-107); Glucose 138 mg/dL (83-110); Potassium 4.7 mmol/L (3.5-5.1); Sodium 137 mmol/L (136-145)
[2020-07-22 08:22] LABS: SARS-CoV-2 MS2 Positive; SARS-CoV-2 N Gene Negative; SARS-CoV-2 S Gene Negative; SARS-CoV-2 by NAA Not Detected (NotDetected); SARS-CoV-2 orf1ab Negative
--- NOTE | 2020-07-22 08:34 | RAD ---
Radiograph pelvis one view: 07/22/2020 8:08 AM HISTORY: 89-year-old male with acute, left femoral neck fracture. Surgical planning radiograph COMPARISON: CT 07/22/2020 12:50 AM FINDINGS: Subtle finding of slightly impacted subcapital left femoral neck fracture. No angulation. Diffuse ost eopenia. IMPRESSION: Slightly impacted subcapital left femoral neck fracture.
--- NOTE | 2020-07-22 09:06 | CT ---
PRELIMINARY REPORT/[facility]/EMERGENCY AFTER HOURS PROCEDURE: EXAM: CT Chest Without Intravenous Contrast. CLINICAL HISTORY: FALL AT HOME AROUND 9PM. STARTING GETTING READY FOR BED AND LEFT THIGH STARTED TO HURT. 80% [facility] AR RIVAL. 95% 3L. TECHNIQUE: Axial computed tomography images of the chest without intravenous contrast. DLP is 524.21. CTDI is 13 .62. COMPARISON: None provided. FINDINGS: LUNGS: No pulmonary mass. No focal airspace consolidation. PLEURAL SPACES: No pleural effusion. No pneumothorax. HEART AND MEDIASTINUM: Left-sided pacemaker. Sternotomy wires noted. No cardiomegaly. No significant pericardial effusion. LYMPH NODES: No lymphadenopathy. CHEST WALL AND UPPER ABDOMEN: The upper abdominal solid organs are unremarkable. The chest wall is unremarkable. BONES: No acute osseous abnormality. IMPRESSION: No acute intra-thoracic injury. ELECTRONICALLY SIGNED BY: Augustine White MD Jul 22, 2020 1:07:18 AM LEPIDOPTERIST This report is intended for review by the ordering physician only, in accordance of law. If you recei ve this report in error, please call [facility] at [phone]. FINAL REPORT EMERGENCY AFTER HOURS CT CHEST: HISTORY: Fall with injury to chest. FINDINGS/IMPRESSION: No acute thoracic injury identified. I am in agreement with the preliminary report issued by [facility]. POS: [facility]
--- NOTE | 2020-07-22 09:08 | CT ---
PRELIMINARY REPORT/[facility]/EMERGENCY AFTER HOURS PROCEDURE: EXAM: CT Pelvis Without Intravenous Contrast. CLINICAL HISTORY: FALL AT HOME AROUND 9PM. STARTING GETTING READY FOR BED AND LEFT THIGH STARTED TO HURT. 80% RA EMS AR RIVAL. 95% 3L. TECHNIQUE: Axial computed tomography images of the pelvis without intravenous contrast. CONTRAST: None. COMPARISON: None provided. FINDINGS: Acute fracture of the left femoral neck. Femoral head is aligned within the acetabular fossa. IMPRESSION: Acute fracture of the left femoral neck. ELECTRONICALLY SIGNED BY: Augustine White MD Jul 22, 2020 1:12:24 AM SALES ADVISORY MANAGER This report is intended for review by the ordering physician only, in accordance of law. If you recei ve this report in error, please call [facility] at [phone]. FINAL REPORT CT PELVIS WITHOUT CONTRAST: INDICATION: Fall with injury and pain to left hip. FINDINGS/IMPRESSION: Nondisplaced fracture involving the left femoral neck. Degenerative changes at both hips. I am in agreement with the preliminary report issued by [facility]. POS: [facility]
[2020-07-22] MEDS ORDERED: CEFAZOLIN 2 GM in Premix Bag 1 BAG IVPB SCH (09:30)
--- NOTE | 2020-07-22 09:38 | HP ---
REQUESTING PHYSICIAN: Dr. Quesada. ATTENDING SURGEON: Dr. Alejandro. CONSULTATIONS: Orthopedics, Dr. Castano. HISTORY OF PRESENT ILLNESS: Patient is an 89-year-old man who was brought to the emergency department after a ground level fall earlier in the day. He originally had refused transportation by EMS, but the pain increased throughout the day and he was unable to ambulate due to his left hip pain at which time he was brought to the emergency department where he underwent evaluation and examination and was noted to have a nondisplaced femoral neck fracture at which time we were asked to evaluate the patient for admission and obtain Orthopedic consultation. Patient denied loss of consciousness and denies blood thinner use. Of note, during my exam, his spouse was not available. The patient is very hard of hearing and a poor historian. ALLERGIES: CODEINE AND MORPHINE REPORTEDLY MAKES THE PATIENT AGITATED. NO ANAPHYLACTIC TYPE REACTIONS. CURRENT MEDICATIONS: 1. Atorvastatin. 2. Donepezil. 3. CoQ10. 4. Sertraline. 5. Full-strength aspirin. 6. Amiodarone. 7. Naprosyn. 8. Ultram. PAST MEDICAL HISTORY: CVA with left-sided deficit 1-1/2 years ago, coronary artery disease, ventricular tachycardia. PAST SURGICAL HISTORY: Coronary artery bypass graft x5 vessels, pacemaker placement. SOCIAL HISTORY: Patient has no history of drug, tobacco, or alcohol use. Lives at home with his spouse. PHYSICAL EXAMINATION: VITAL SIGNS: Temperature is 97.8, heart rate 73, blood pressure 157/97, respirations 18, oxygen saturation is 95% on 3 L via nasal cannula. GENERAL: The patient is resting comfortably in bed. He was asleep upon my entering the room, but did awaken with a loud verbal stimuli. This appears to be his baseline regarding his hearing. He did answer simple questions and follow simple commands. His [place] Coma Scale will be 14 -1 for eye opening. HEENT: Head is normocephalic and atraumatic. Eyes, extraocular motion intact. PERRLA bilaterally. Ears are atraumatic, no discharge. Nose atraumatic, no discharge. Oropharynx is clear. NECK: Nontender. Trachea is midline with no JVD. CHEST: Clear to auscultation with good inspiratory and expiratory effort. HEART: Regular rate and rhythm. ABDOMEN: Soft, flat, nontender with active bowel sounds. EXTREMITIES: Neurovascularly intact x4. PELVIS: Stable with tenderness to palpation to the left hip consistent with his fracture. EXTREMITIES: Neurovascularly intact x4. BACK: By report is atraumatic and nontender. LABORATORY FINDINGS: White blood cell count 12.9, hemoglobin 14.4, hematocrit 43.3, platelets 163. Sodium 137, potassium 4.7, chloride 106, CO2 20, BUN 22, creatinine 1.46, glucose 138. COVID is negative. RADIOGRAPHIC REPORTS: AP chest x-ray shows no acute cardiopulmonary process. CT of the chest shows no acute intrathoracic injury. CT of the pelvis shows a nondisplaced left femoral neck fracture. ASSESSMENT: 1. Status post ground level fall with delayed presentation. 2. Nondisplaced left femoral neck fracture. 3. Acute pain secondary to above. 4. History of 5 vessel coronary artery bypass graft. PLAN: Plan will be to admit the patient to the Surgical Floor. We will keep him n.p.o. for evaluation by Orthopedics in the morning. Continue supportive care, postoperatively we will encourage physical and occupational therapy. We will do pulmonary toilet, gastritis, and mechanical VTE prophylaxis and discuss placement postoperatively. Patient will need continued therapy for mobility. We will discuss this when his family arrives. The evaluation, examination, laboratory, and radiographic findings were discussed with Dr. Alejandro prior to this dictation. The ER did notify Dr. Castano who will see him in the morning. Job ID: [id number]
--- NOTE | 2020-07-22 09:42 | RAD ---
PORTABLE CHEST: Date: 07/22/2020 HISTORY: Fall. COMPARISON: 08/13/2017. FINDINGS: Cardiomegaly with postop sternotomy change. Vascular markings normal. Lungs appear clear. Pacemaker l harish unchanged. Bony thorax appears intact. IMPRESSION: No acute findings. POS: [facility]
[2020-07-22] MEDS ORDERED: Ondansetron HCl/PF 4 MG/2 ML Vial IVP PRN (09:45)
[2020-07-22] MEDS ORDERED: Fentanyl 100 MCG/2 ML VIAL ONE (09:56)
--- NOTE | 2020-07-22 10:37 | CON ---
DATE OF CONSULTATION: 07/22/2020 CHIEF COMPLAINT: Left hip pain. HISTORY OF PRESENT ILLNESS: Mr. Keen is an 89-year-old male who has fallen yesterday. He lives independently with his . He does use a walker around the house and occasionally a wheelchair out of the house. He tripped over some blankets and fell on his left side. His was unable to get him up. He had hip pain. He was transported to the hospital by EMS. He was found to have a left femoral neck fracture on CT scan. The patient is deaf and is a poor historian. His is at the bedside. ALLERGIES: TO CODEINE AND MORPHINE. PAST MEDICAL HISTORY: CVA with left-sided weakness, coronary artery disease, ventricular tachycardia. PAST SURGICAL HISTORY: Coronary artery bypass graft and pacemaker. SOCIAL HISTORY: The patient denies tobacco, alcohol, or drug use. He lives independently at home. FAMILY MEDICAL HISTORY: Noncontributory. IMAGES: X-rays of the left hip and CT scan of the left hip demonstrate a nondisplaced basicervical femoral neck fracture with impaction. PHYSICAL EXAMINATION: VITAL SIGNS: Temperature is 98.7, pulse is 99, respiratory rate of 20, oxygen saturation 95%, blood pressure is 167/97. GENERAL: He is lying supine. He is alert, but very hard of hearing. HEENT: Normocephalic, atraumatic. RESPIRATORY: Breathing comfortably. ABDOMEN: Soft, nontender, nondistended. MUSCULOSKELETAL: The patient's left lower extremity has external rotation. He has pain with movement. He is neurovascularly intact in the foot and ankle. He has a well-healed scar over his knees suggestive of knee arthroplasty. Upper extremities appear to be atraumatic without pain. IMPRESSION: Left nondisplaced femoral neck fracture. PLAN: At this point, I think the patient would benefit from stabilization of his femoral neck with percutaneous screws. We will plan for this today. This will be a fairly minor procedure and allow him to mobilize without risk of displacing his femoral neck fracture. Goal will be to prevent complications of prolonged bedrest. He will be n.p.o. until surgery. He will likely need rehab placement. He will have antibiotics on-call to the operating room. Job ID: [id number]
--- NOTE | 2020-07-22 12:00 | OP ---
DATE OF PROCEDURE: 07/22/2020 PROCEDURE PERFORMED: Left femoral neck fracture percutaneous screw fixation. PREOPERATIVE DIAGNOSIS: Left nondisplaced femoral neck fracture. POSTOPERATIVE DIAGNOSIS: Left nondisplaced femoral neck fracture. COMPLICATIONS: None. ESTIMATED BLOOD LOSS: Minimal. TECHNICAL COORDINATOR: Yamile Vasquez PA-C. The project assistant surgeon was responsible for positioning the patient, preparing the injured extremity, applying the tourniquet, and assisting in preparation for surgery. The project assistant was instrumental in reducing the injured limb by applying traction and reduction maneuvers as well as holding retractors and reduction tools. The project assistant also was instrumental in assisting in exposure throughout the operation using appropriate retractors. The project assistant participated in closure of the operative site as well as dressing application and splint application. IMPLANTS: Synthes 7.3 mm cannulated screws x3. INDICATION FOR PROCEDURE: Mr. Keen is an 89-year-old male, who has fallen and fractured his left femoral neck. He has been indicated for screw fixation of the femoral neck to allow early mobility and prevent complications of displaced femoral neck fracture. Risks have been reviewed. He and his have elected to proceed with the operation. DESCRIPTION OF PROCEDURE: Mr. Keen was identified in the preoperative holding area. His correct extremity was marked. He was carried to the operating room. He was positioned supine. General anesthesia was induced. The patient was placed on the fracture table. His left leg was placed in traction gently. At this point, we prepped the left lower extremity. We then evaluated with intraoperative x-ray. We made a small incision over the lateral thigh. We then placed a guidewire in the inferior position at the femoral neck. This was followed by 2 more proximal guidewires to form an inverted triangle pattern. This was checked with intraoperative x-ray multiple times. Next, we measured an appropriate length for screws, overdrilled the guidewires and placed our screws. Again, we took x-ray images. We thoroughly irrigated with copious lavage. We then closed in layers. A sterile dressing was applied. Job ID: [id number]
[2020-07-22] MEDS ORDERED: PROPOFOL 200 MG/20 ML VIAL ONE (12:01)
[2020-07-22] MEDS ORDERED: PHENYLEPHRINE-NS 100 MCG/ML 10 ML SYRINGE ONE (12:01)
[2020-07-22] MEDS ORDERED: Lidocaine 1% PF 5 ML VIAL ONE (12:01)
[2020-07-22] MEDS ORDERED: Ondansetron PF 4 MG/2 ML Vial ONE (12:01)
--- NOTE | 2020-07-22 12:08 | RAD ---
LEFT HIP: Three fluoroscopic images from OR presented. INDICATION: Open reduction and internal fixation left hip. FINDINGS/IMPRESSION: These images demonstrate three compression screws transfixing the left femoral neck. POS: AGW
[2020-07-22] MEDS: CEFAZOLIN 2 GM in Premix Bag 1 BAG IVPB SCH (18:36)
[2020-07-22] MEDS: Donepezil HCl 10 MG TAB PO SCH (20:21)
[2020-07-22] MEDS: levETIRAcetam 500 MG TAB PO SCH (20:21)
[2020-07-22] MEDS: Atorvastatin Calcium 40 MG TAB PO SCH (20:21)
[2020-07-22] MEDS ORDERED: FLU VACC QS2020-21(65YR UP)/PF 240 MCG/0.7 ML SYRINGE IM ONE (21:00)
[2020-07-23] MEDS: CEFAZOLIN 2 GM in Premix Bag 1 BAG IVPB SCH (01:20)
[2020-07-23 06:19] LABS: Anion Gap 12 mmol/L (10-20); BUN (Urea Nitrogen) 29 mg/dL (8.4-25.7); Calc. Creatinine Clearance 34 mL/min (70-130); Calcium 8.9 mg/dL (7.8-10.44); Carbon Dioxide 21 mmol/L (23-31); Chloride 108 mmol/L (98-107); Glucose 122 mg/dL (83-110); Phosphorus 2.8 mg/dL (2.3-4.7); Potassium 4.1 mmol/L (3.5-5.1); Sodium 137 mmol/L (136-145)
[2020-07-23 06:23] LABS: #Basophils 0.1 thou/uL (0.0-0.2); #Eosinphils 0.2 thou/uL (0.0-0.7); #Monocytes 0.6 thou/uL (0.11-0.59); #Neutrophils 6.2 thou/uL (1.40-6.50); %Basophils 0.6 % (0.0-1.0); %Eosinophils 2.2 % (0.0-10.0); %Lymphocytes 12.5 % (21.0-51.0); %Monocytes 7.6 % (0.0-10.0); %Neutrophils 77.1 % (42.0-75.0); Hemoglobin 12.4 g/dL (14.0-18.0); Mean Corpuscular Hemoglobin 32.9 pg (27.0-31.0); Mean Corpuscular Volume 99.8 fL (78.0-98.0); Mean Platelet Volume 7.5 fL (7.4-10.4); Platelet Count 118 thou/uL (130-400); Platelet Morphology Comment Appears Decreased; RBC Distribution Width 11.7 % (11.5-14.5); Red Blood Cell (RBC) Count 3.76 mill/uL (4.70-6.10)
[2020-07-23] MEDS: Ibuprofen 600 MG TAB PO SCH (06:36)
[2020-07-23] MEDS: Acetaminophen 325 MG TAB PO SCH ×3 (06:36→17:41)
[2020-07-23] MEDS ORDERED: Sodium Chloride 0.9% 500 ML IV SCH (06:45)
[2020-07-23] MEDS: clonazePAM 0.5 MG TAB PO SCH (07:58)
[2020-07-23] MEDS: Amiodarone 200 MG TAB PO SCH (07:59)
[2020-07-23] MEDS: levETIRAcetam 500 MG TAB PO SCH ×2 (08:01→20:28)
[2020-07-23] MEDS: Zinc Sulfate 220 MG CAP PO SCH (08:01)
[2020-07-23] MEDS: Thyroid 60 MG TAB PO SCH (08:01)
[2020-07-23] MEDS: Losartan 25 MG TAB PO SCH (08:01)
[2020-07-23] MEDS: Ascorbic Acid 500 mg Chewable Tablet PO SCH (08:02)
[2020-07-23] MEDS: Folic Acid 1 MG TAB PO SCH (08:02)
[2020-07-23] MEDS: Cyanocobalamin (Vitamin B-12) 1,000 MCG TAB PO SCH (08:02)
--- NOTE | 2020-07-23 14:16 | PRG ---
DATE OF SERVICE: 07/23/2020 SUBJECTIVE: Domingo is an 89-year-old male, postop day 1 for left hip cannulated screw fixation. He is doing relatively well. He is sleeping at the moment, but arouses. Incision is clean. OBJECTIVE: VITAL SIGNS: Vital signs are stable. Temperature 98, pulse 65, respiratory rate 18, blood pressure is 130/78. GENERAL: He is alert and responsive. LABORATORY DATA: Hemoglobin and hematocrit 12.4 and 37.5. IMPRESSION: An 89-year-old male, postop day 1, left hip subcapital femoral neck fracture, treated with cannulated screw fixation. PLAN: Continue current care. Disposition per Trauma Team. Initiate physical therapy. Job ID: [id number]
--- NOTE | 2020-07-23 15:42 | PRG ---
DATE OF SERVICE: 07/23/2020 SUBJECTIVE: The patient is currently in the surgical floor. He is status post percutaneous screw fixation of a left femoral neck fracture, he is postoperative day 1 from this. Overnight, he had no issues. This morning, he is awaiting physical and occupational therapy, and afterwards, we will discuss placement. PHYSICAL EXAMINATION: VITAL SIGNS: Temperature is 98.0, heart rate 65, blood pressure 138/78, respirations 18, and oxygen saturation 94% on room air. GENERAL: The patient is resting comfortably in bed. He is awake, conversant, and appropriate, albeit he is hard of hearing. LUNGS: Clear to auscultation bilaterally. HEART: Regular rate and rhythm. ABDOMEN: Soft, nontender with active bowel sounds. EXTREMITIES: Neurovascularly intact x4. Postoperative dressing is clean, dry, and intact. LABORATORY FINDINGS: White blood cell count 8.0, hemoglobin 12.4, hematocrit 37.5, and platelets 118. Sodium 137, potassium 4.1, chloride 108, CO2 of 21, BUN 29, creatinine 1.79, and glucose 122. Magnesium 2.0. Phosphorus 2.8. There are no radiographs to review this morning. ASSESSMENT AND PLAN: 1. Status post ground-level fall. 2. Postoperative day 1 from left femoral neck fracture percutaneous screw fixation. PLAN: Plan will be to continue supportive care, encourage physical and occupational therapy, and await placement. The patient was evaluated this morning with Dr. Jamil during rounds. Job ID: [id number]
[2020-07-23] MEDS: Aspirin 81 mg Enteric Coated Tablet PO SCH (20:28)
[2020-07-23] MEDS: Donepezil HCl 10 MG TAB PO SCH (20:28)
[2020-07-23] MEDS: Atorvastatin Calcium 40 MG TAB PO SCH (20:28)
--- NOTE | 2020-07-23 20:28 | PQF ---
CLINICAL DOCUMENTATION CLARIFICATION FORM: Dear Dr.GARY STEFANIE PA-C Date: 07-23-20 Please exercise your independent, professional judgment in responding to the clarification form. Clinical indicators are provided on the bottom of this form for your review. Please check appropriate box(es): [ X ] Acute Renal Failure (ARF) / Acute Kidney Injury (LUZMARIA) [ ] Insignificant Lab Values [ ] Other diagnosis [ ] Unable to determine In addition, please specify: Present on Admission (POA): [ X ] Yes [ ] No [ ] Unable to determine For continuity of documentation, please document condition throughout progress notes and discharge summary. Thank You. To be completed by CDI/Coding staff for physician review: CLINICAL INDICATORS - SIGNS / SYMPTOMS / LABS / RESULTS AND LOCATION IN MR: GFR: 07-22-20: 43 07-22-20: 46 07-23-20: 36 CREATININE: 07-22-20: 1.54 07-22-20: 1.46 07-23-20: 1.79 BUN: 07-23-20: 29 RISK FACTORS / RESULTS AND LOCATION IN MR: ER NOTES 07-22-20: SERTRALINE, ASA, NAPROSYN, ULTRAM TREATMENTS / RESULTS AND LOCATION IN MR: MAR: 07-23-20: NS IVF National Kidney [employer] Guidelines for CKD Staging Stage I Kidney damage with normal or increased GFR GFR > 90 Stage II Kidney damage with mildly decreased GFR GFR 60-89 Stage III Kidney damage with moderately decreased GFR GFR 30-59 Stage IV Kidney damage with severely decreased GFR GFR 16-29 Stage V Kidney failure GFR<15 ESRD End Stage Renal Disease On dialysis Acute Renal Failure/Acute Kidney Failure defined as: Increases in SCr by (>) 0.3 mg/dl within 48 hours OR- Increases in SCr by (>) 1.5 times baseline, known or presumed to have occurred within the prior 7 days OR- Urine volume < 0.5 ml/kg/hour for 6 hours (KDIGO supplement 2012 for RIFLE/ORACIO criteria) CDS Signature: Cherelle Burkett Phone #: [phone] Date: 07-23-20 This is a permanent part of the Medical Record [facility]ITAL[facility]
[2020-07-23] MEDS ORDERED: ALPRAZolam 0.25 MG TAB PO SCH (21:00)
[2020-07-23] MEDS ORDERED: diphenhydrAMINE 25 MG CAP PO SCH (21:00)
[2020-07-24] MEDS: Acetaminophen 325 MG TAB PO SCH ×5 (00:41→23:26)
[2020-07-24] MEDS ORDERED: traMADol HCl 50 MG TAB PO PRN ×2 (08:45)
[2020-07-24] MEDS: Aspirin 81 mg Enteric Coated Tablet PO SCH ×2 (09:07→20:17)
[2020-07-24] MEDS: Zinc Sulfate 220 MG CAP PO SCH (09:07)
[2020-07-24] MEDS: Cholecalciferol (Vitamin D3) 400 UNITS TAB PO SCH (09:07)
[2020-07-24] MEDS: Losartan 25 MG TAB PO SCH (09:07)
[2020-07-24] MEDS: Amiodarone 200 MG TAB PO SCH (09:08)
[2020-07-24] MEDS: Folic Acid 1 MG TAB PO SCH (09:08)
[2020-07-24] MEDS: Thyroid 60 MG TAB PO SCH (09:08)
[2020-07-24] MEDS: Ascorbic Acid 500 mg Chewable Tablet PO SCH (09:08)
[2020-07-24] MEDS: Multivit, Therapeutic 1 TAB PO SCH (09:08)
[2020-07-24] MEDS: levETIRAcetam 500 MG TAB PO SCH ×2 (09:08→20:17)
[2020-07-24] MEDS: Cyanocobalamin (Vitamin B-12) 1,000 MCG TAB PO SCH (09:08)
[2020-07-24] MEDS: clonazePAM 0.5 MG TAB PO SCH (09:09)
[2020-07-24] MEDS: Polyethylene Glycol 3350 17 GM Packet PO SCH (09:10)
[2020-07-24] MEDS: Senokot S 8.6-50 MG TAB PO SCH ×2 (09:10→20:17)
[2020-07-24 09:48] LABS: Anion Gap 14 mmol/L (10-20); BUN (Urea Nitrogen) 26 mg/dL (8.4-25.7); Calc. Creatinine Clearance 41 mL/min (70-130); Calcium 9.3 mg/dL (7.8-10.44); Carbon Dioxide 22 mmol/L (23-31); Chloride 107 mmol/L (98-107); Glucose 110 mg/dL (83-110); Potassium 4.4 mmol/L (3.5-5.1); Sodium 139 mmol/L (136-145)
[2020-07-24 11:23] LABS: ALT (SGPT) Less than 7 U/L (8-55); AST (SGOT) 23 U/L (5-34); Albumin 2.9 g/dL (3.4-4.8); Alkaline Phosphatase 69 U/L (40-110); Bilirubin, Direct 0.4 mg/dL (0.1-0.3); Bilirubin, Total 0.8 mg/dL (0.2-1.2); Protein, Total 6.1 g/dL (5.8-8.1)
--- NOTE | 2020-07-24 18:05 | PRG ---
DATE OF SERVICE: 07/24/2020 SUBJECTIVE: The patient was seen during morning rounds with Dr. Alejandro. The patient is currently drowsy, but arouses to voice. The patient's GCS is 14 -1 for eye opening. The patient is postop day #2, status post left hip percutaneous screw. The patient has been sleepy since postop. The patient had no overnight events. The patient has had decreased intake today. OBJECTIVE: VITAL SIGNS: Temperature 98.4, pulse 68, respirations 14, SpO2 of 96% on room air, blood pressure 167/93. GENERAL: Elderly male, resting comfortably, arouses to voice, in no distress. HEENT: Unremarkable. RESPIRATORY: Good inspiratory and expiratory effort, respirations are even and nonlabored. CARDIAC: Regular rate, regular rhythm. ABDOMEN: Soft, nontender, nondistended. EXTREMITIES: Neurovascularly intact x4. LABORATORY DATA: Sodium 139, potassium 4.4, chloride 107, CO2 22, BUN 26, creatinine 1.47, estimated GFR 45, glucose 110, calcium 9.3. Albumin 2.9, ammonia 19, alkaline phos 69. DIAGNOSTICS: No new diagnostics to review today. ASSESSMENT: 1. Status post ground level fall. 2. Postop day #2 left femoral neck fracture, percutaneous screw fixation. PLAN: Continue supportive care and encourage physical and occupational therapy. We will discontinue all medications that will cause the patient drowsiness. Encourage oral intake. We will add Ensure 3 times a day with meals. The patient's spouse is wanting to see if the patient is appropriate for rehab once he is more awake. Spouse's first choice is [facility] and her second choice is [facility] for placement. The patient was examined by Dr. Alejandro during morning rounds. Job ID: [id number]
[2020-07-24] MEDS: Atorvastatin Calcium 40 MG TAB PO SCH (20:17)
[2020-07-24] MEDS: Donepezil HCl 10 MG TAB PO SCH (20:17)
--- NOTE | 2020-07-25 00:33 | PRG ---
DATE OF SERVICE: 07/24/2020 SUBJECTIVE: The patient was seen this evening during rounds. He was lying in bed, resting comfortably, asleep, but no signs of acute distress. Nursing reported no acute events. OBJECTIVE: VITAL SIGNS: Temperature 98.4, pulse 68, respirations 16, oxygen saturation 94% on 2 L nasal cannula, blood pressure 151/78. ASSESSMENT: 1. Status post ground level fall. 2. Left femoral neck fracture, status post repair. 3. History of cerebrovascular accident with left-sided weakness, coronary artery disease, ventricular tachycardia, coronary artery bypass graft, pacemaker. PLAN: Continue current diet and pain regimen. Continue physical and occupational therapy. Continue supportive care. Continue to monitor patient's neurological status. Sedating medications were stopped yesterday as he appeared very sleepy. The patient is pending discharge to either SNF or inpatient rehab pending his activity status tomorrow. Job ID: [id number]
[2020-07-25 06:22] LABS: #Eosinphils 0.4 thou/uL (0.0-0.7); #Lymphocytes 1.3 thou/uL (1.20-3.40); #Monocytes 1.1 thou/uL (0.11-0.59); #Neutrophils 6.9 thou/uL (1.40-6.50); %Basophils 0.1 % (0.0-1.0); %Eosinophils 3.7 % (0.0-10.0); %Lymphocytes 13.6 % (21.0-51.0); %Monocytes 11.4 % (0.0-10.0); %Neutrophils 71.2 % (42.0-75.0); Hemoglobin 12.1 g/dL (14.0-18.0); Mean Corpuscular HGB CONC 33.1 g/dL (32.0-36.0); Mean Corpuscular Hemoglobin 33.3 pg (27.0-31.0); Mean Platelet Volume 8.4 fL (7.4-10.4); Platelet Count 131 thou/uL (130-400); RBC Distribution Width 11.8 % (11.5-14.5); Red Blood Cell (RBC) Count 3.62 mill/uL (4.70-6.10); White Blood Cell (WBC) Count 9.8 thou/uL (4.8-10.8)
[2020-07-25] MEDS: Acetaminophen 325 MG TAB PO SCH ×5 (06:32→19:37)
[2020-07-25 06:34] LABS: Anion Gap 11 mmol/L (10-20); BUN (Urea Nitrogen) 34 mg/dL (8.4-25.7); Calc. Creatinine Clearance 44 mL/min (70-130); Calcium 9.4 mg/dL (7.8-10.44); Carbon Dioxide 26 mmol/L (23-31); Chloride 107 mmol/L (98-107); Glucose 117 mg/dL (83-110); Phosphorus 2.3 mg/dL (2.3-4.7); Sodium 140 mmol/L (136-145)
[2020-07-25] MEDS: Polyethylene Glycol 3350 17 GM Packet PO SCH (08:32)
[2020-07-25] MEDS: Ascorbic Acid 500 mg Chewable Tablet PO SCH (08:33)
[2020-07-25] MEDS: Multivit, Therapeutic 1 TAB PO SCH (08:33)
[2020-07-25] MEDS: Aspirin 81 mg Enteric Coated Tablet PO SCH ×2 (08:33→19:37)
[2020-07-25] MEDS: Zinc Sulfate 220 MG CAP PO SCH (08:33)
[2020-07-25] MEDS: Thyroid 60 MG TAB PO SCH (08:33)
[2020-07-25] MEDS: Senokot S 8.6-50 MG TAB PO SCH ×2 (08:33→19:38)
[2020-07-25] MEDS: Cholecalciferol (Vitamin D3) 400 UNITS TAB PO SCH (08:33)
[2020-07-25] MEDS: Amiodarone 200 MG TAB PO SCH (08:34)
[2020-07-25] MEDS: Losartan 25 MG TAB PO SCH (08:34)
[2020-07-25] MEDS: Cyanocobalamin (Vitamin B-12) 1,000 MCG TAB PO SCH (08:34)
[2020-07-25] MEDS: Folic Acid 1 MG TAB PO SCH (08:34)
[2020-07-25] MEDS: levETIRAcetam 500 MG TAB PO SCH ×2 (08:34→19:38)
[2020-07-25] MEDS ORDERED: Melatonin 3 MG TAB PO PRN (09:56)
[2020-07-25] MEDS: Atorvastatin Calcium 40 MG TAB PO SCH (19:37)
[2020-07-25] MEDS: Donepezil HCl 10 MG TAB PO SCH (19:38)
--- NOTE | 2020-07-25 19:43 | DIS ---
DATE OF ADMISSION: 07/22/2020 DATE OF DISCHARGE: 07/25/2020 RESIDENT: Kely Eduardo MD, PGY-1. ADMITTING ATTENDING: Spencer Alejandro DO DISCHARGE ATTENDING: Spencer Alejandro DO. CONSULT: Orthopedic Surgery, Dr. Castano. PROCEDURES: Left femoral neck fracture, percutaneous screw fixation. PRIMARY DIAGNOSIS: Ground-level fall. SECONDARY DIAGNOSES: 1. Left femoral neck fracture, repaired. 2. History of cerebrovascular accident, coronary artery disease, coronary artery bypass graft, pacemaker. DISCHARGE MEDICATIONS: 1. Acetaminophen 650 mg p.o. q.4 hours. 2. Amiodarone 100 mg p.o. daily. 3. Vitamin C 500 mg p.o. daily. 4. Atorvastatin 40 mg at bedtime. 5. Vitamin D 400 units p.o. daily. 6. Vitamin B12 one tab daily. 7. Donepezil 10 mg daily. 8. Folic acid 1 mg daily. 9. Keppra 750 mg b.i.d. 10. Losartan 50 mg daily. 11. Melatonin 3 mg p.o. at bedtime. 12. Metoprolol succinate 100 mg p.o. b.i.d. 13. Multivitamin 1 caplet daily. 14. MiraLAX 17 g p.o. daily. 15. Senokot 2 tabs p.o. b.i.d. p.r.n. 16. Sertraline 100 mg p.o. daily. 17. Vaughn Thyroid 60 mg p.o. daily. 18. Tramadol 50 mg p.o. q.12 hours p.r.n. 19. Zinc 50 mg p.o. daily. 20. Xanax 0.25 mg p.r.n. 21. Aspirin 325 mg daily. 22. Clonazepam 0.5 mg daily p.r.n. 23. Benadryl 25 mg p.o. at bedtime p.r.n. 24. Naproxen 500 mg p.o. b.i.d. 25. Metamucil powder 2 teaspoons daily. HISTORY OF PRESENT ILLNESS: The patient is an 89-year-old man, who was brought to the ED after a ground-level fall. He originally had refused transportation by EMS, but the pain continued to increase in his left hip, so he chose to go to the emergency department. Imaging was done in the ED and was found that he had a nondisplaced femoral neck fracture on the left. The patient denied loss of consciousness. PHYSICAL EXAMINATION: VITAL SIGNS: Stable, oxygen saturation was 95% on 3 L nasal cannula. GENERAL: The patient was oriented, but was drowsy on exam. GCS was 14, -1 for eye opening. LABORATORY FINDINGS: White blood cell count 12.9, hemoglobin 14.4, hematocrit 43.3, sodium 137, potassium 4.7, BUN 22, creatinine 1.46. Orthopedic Surgery was consulted and performed the procedure as stated above on 07/22/2020. The patient tolerated the procedure well. Postprocedure, the patient was drowsy and was unable to participate with physical therapy. His medications were adjusted so as to avoid any sedating medications. By last day of hospitalization, patient was awake and alert and was able to participate with PT. Physical Therapy felt it was appropriate for him to be placed in rehab. The patient's was at bedside and voiced she had experience with him going to [facility] in the past and that is where she would choose to go. The patient was stable for discharge. DISPOSITION: Stable. DISCHARGE INSTRUCTIONS: 1. Location: [facility]. 2. Diet: Regular. 3. Activity: As directed by Physical Therapy, Occupational Therapy. 4. Followup: Follow up with primary care provider in 7 days; Dr. Castano, orthopedic surgeon, in 14 days. Job ID: [id number] MTDD
[2020-07-25 20:09] VITALS: BP 197/90; TEMP 97.8
--- NOTE | 2020-07-26 06:29 | PRG ---
DATE OF SERVICE: 07/25/2020 SUBJECTIVE: The patient is an 89-year-old male, postop day #3 from left hip percutaneous screw. Patient sustained a left hip fracture following a ground level fall. This morning, patient was awake and oriented. States he did not have his best night sleep. He was able to fall asleep, but had trouble staying asleep. The patient is tolerating diet. OBJECTIVE: VITAL SIGNS: Blood pressure 135/67, pulse 60, temperature 97.5, respiratory rate 14, oxygen saturation 95% on room air. GENERAL: The patient is resting comfortably in bed. Awake and oriented. GCS is 15. HEENT: Unremarkable. RESPIRATORY: Nonlabored breathing, had good inspiratory and expiratory effort. CARDIAC: Regular rate and rhythm. ABDOMEN: Soft, nondistended. EXTREMITIES: Neurovascularly intact x4. LABORATORY DATA: Hemoglobin 12.1, hematocrit 36.4, MCV 101. Sodium 140, potassium 4, BUN 34, creatinine 1.39. ASSESSMENT: 1. Status post ground level fall. 2. Postop day #3, percutaneous screw fixation of left femoral neck fracture. 3. History of cerebrovascular accident, coronary artery disease, coronary artery bypass grafting, pacemaker. PLAN: Continue supportive care. The patient seems more alert after discontinuing several of his home medications that are known to be sedating. We will continue to monitor for adequate pain control, while also balancing acute encephalopathy. The patient has not been able to work with PT on previous days due to being drowsy, so encouraged him to work with them today. Pending their evaluation for placement. The patient's would like for him to go to inpatient rehab. Case Management is helping with his placement needs. This patient was seen and evaluated by Dr. Alejandro on morning rounds today. Job ID: [id number]
--- NOTE | 2020-07-27 02:59 | PQF ---
CLINICAL DOCUMENTATION CLARIFICATION FORM: Dear : Spencer Alejandro Date / Time: 07/27/20258 Please exercise your independent, professional judgment in responding to the clarification form. Clinical indicators are provided on the bottom of this form for your review In your clinical opinion based on clinical findings below, can you please specify Encephalopathy if: Please check appropriate box(es): [ x] Metabolic [ ] Toxic [ ] Unspecified [ ] Other (please specify) [ ] Unable to determine Physician Signature: Date/Time: For continuity of documentation, please document condition throughout progress notes and discharge summary. Thank You. To be completed by CDI/Coding staff for physician review: Present Clinical Indicators - Signs / Symptoms / Labs Results and Location in Medical Record [x] BP 157/102, Pulse 73, Resp 18, Temp 97.8 Vital signs 07/22 [x] Presented after a ground level fall earlier H&P p1 07/22 Munster PA-C [x] Acute pain due to trauma H&P p2 07/22 Munster PA-C [x] He was able to fall asleep, but had trouble staying asleep PN p1 07/25 Dr Eduardo [x] Monitor for adequate pain contril, while also balancing acute Encephalopathy PN p1 07/25 Dr Eduardo [x] previous days with being drowsy PN p1 07/25 Dr Eduardo Present Risk Factors Results and Location in Medical Record [x] 89 year-old Male H&P p1 07/22 Munster PA-C [x] CVA with left sided deficit H&P p1 07/22 Munster PA-C [x] CAD s/p CABG H&P p1 07/22 El PA-C Present Treatments Results and Location in Medical Record [x] IVF NS 1L SEP 10 [x] IV Toprol XL SEP 10 [x] Pain control PN p1 07/25 Dr Eduardo CDS/Claims Associate Signature: Paola Carranza Phone #: [phone] Date/Time: 07/27/20258 This is a permanent part of the Medical Record [facility]
--- NOTE | 2020-07-28 10:31 | EKG ---
Test Reason : Blood Pressure : / mmHG Vent. Rate : 060 BPM Atrial Rate : 258 BPM P-R Int : 000 ms QRS Dur : 102 ms QT Int : 462 ms P-R-T Axes : 000 228 245 degrees QTc Int : 462 ms Junctional rhythm Right superior axis deviation Anterior infarct , age undetermined Abnormal ECG Confirmed by LAURIE SANCHES M.D. ([id number]), editor book SHANI COVARRUBIAS ([id number]) on 07/28/2020 10:31:16 AM Referred By: Confirmed By:LAURIE SANCHES M.D.
== END 2020-07-25 20:50 | DRG 480 ==
LOC: ERS 00:04 → SURG A 02:00
PROVIDERS: ADMIT Surgery; ATTEND Surgery
PROC: 0QS734Z Reposition Left Upper Femur with Internal Fixation Device, Percutaneous Approach (ICD-10-PCS; principal; 2020-07-22)
DX: S72.012A Unspecified intracapsular fracture of left femur, initial encounter for closed fracture (principal); G93.41 Metabolic encephalopathy; I69.354 Hemiplegia and hemiparesis following cerebral infarction affecting left non-dominant side; Z20.822 Contact with and (suspected) exposure to COVID-19; I25.10 Atherosclerotic heart disease of native coronary artery without angina pectoris; W01.0XXA Fall on same level from slipping, tripping and stumbling without subsequent striking against object, initial encounter; Z23 Encounter for immunization; Z95.1 Presence of aortocoronary bypass graft; Z95.0 Presence of cardiac pacemaker; Z88.5 Allergy status to narcotic agent; Z88.8 Allergy status to other drugs, medicaments and biological substances; Z79.899 Other long term (current) drug therapy
CPT/HCPCS: 36415; 71045; 71250; 72170; 72192; 76000; 80048; 80053; 80076; 82140; 83735; 84100; 84484; 85025; 87635; 90471; 90732; 93005; 96374; C1713; C1769; G0009; J0360; J0690; J1200; J2405; J2704; J3010; J7620; Q0163; U0003

== ENCOUNTER 2020-08-31 16:35 | Inpatient (IN) | payer MEDICARE ==
[2020-08-31 17:14] LABS: Bilirubin Negative (Negative); Blood, Urine Negative (Negative); Clarity Clear (Clear); Glucose, Urine (Dipstick) Normal (Negative); Ketone, Urine Negative (Negative); Leukocyte Negative Leu/uL (Negative); Nitrite Negative (Negative); Protein, Urine (Dipstick) 20 mg/dL (Neg-Trace); Specific Gravity, Urine 1.025 (1.002-1.036); Urobilinogen Normal mg/dL (Less than 2); pH, Urine 5.5 (5.0-9.0)
[2020-08-31 17:51] LABS: #Eosinphils 0.2 thou/uL (0.0-0.7); #Lymphocytes 1.5 thou/uL (1.20-3.40); #Monocytes 0.8 thou/uL (0.11-0.59); #Neutrophils 6.8 thou/uL (1.40-6.50); %Basophils 0.5 % (0.0-1.0); %Eosinophils 1.8 % (0.0-10.0); %Lymphocytes 16.1 % (21.0-51.0); %Monocytes 8.4 % (0.0-10.0); %Neutrophils 73.3 % (42.0-75.0); Hemoglobin 13.7 g/dL (14.0-18.0); Mean Corpuscular HGB CONC 32.9 g/dL (32.0-36.0); Mean Corpuscular Hemoglobin 33.3 pg (27.0-31.0); Mean Platelet Volume 7.1 fL (7.4-10.4); Platelet Count 276 thou/uL (130-400); RBC Distribution Width 12.4 % (11.5-14.5); Red Blood Cell (RBC) Count 4.12 mill/uL (4.70-6.10); White Blood Cell (WBC) Count 9.3 thou/uL (4.8-10.8)
[2020-08-31 18:27] LABS: ALT (SGPT) 16 U/L (8-55); AST (SGOT) 23 U/L (5-34); Albumin 3.1 g/dL (3.4-4.8); Alkaline Phosphatase 115 U/L (40-110); Anion Gap 16 mmol/L (10-20); BUN (Urea Nitrogen) 29 mg/dL (8.4-25.7); Bilirubin, Total 0.4 mg/dL (0.2-1.2); Calc. Creatinine Clearance 0 mL/min (70-130); Calcium 9.6 mg/dL (7.8-10.44); Carbon Dioxide 23 mmol/L (23-31); Chloride 106 mmol/L (98-107); Globulin 4.4 g/dL (2.4-3.5); Glucose 100 mg/dL (83-110); Potassium 4.5 mmol/L (3.5-5.1); Protein, Total 7.5 g/dL (5.8-8.1); Sodium 140 mmol/L (136-145)
[2020-08-31 18:35] LABS: CKMB 1.9 ng/mL (0-6.6)
--- NOTE | 2020-08-31 19:21 | RAD ---
PORTABLE CHEST: 08/31/20 COMPARISON: 07/22/20 exam. HISTORY: Chest pain. Heart size is enlarged with postop sternotomy change and pacemaker. Density in the right paratracheal region is felt to be essentially unchanged since the prior exam given the differences in technique. It is related to a tortuous right innominate. IMPRESSION: Mild chronic lung change. No acute findings. POS: ZAY
[2020-08-31] MEDS ORDERED: ALPRAZolam 0.25 MG TAB ONE (21:43)
[2020-08-31 22:00] LABS: Troponin I 0.047 ng/mL (< 0.028)
[2020-08-31] MEDS ORDERED: Ondansetron ODT 4 MG TAB SL PRN (23:15)
[2020-08-31] MEDS ORDERED: Acetaminophen 325 MG TAB PO PRN (23:15)
[2020-08-31] MEDS ORDERED: Ondansetron PF 4 MG/2 ML Vial IVP PRN (23:15)
[2020-09-01 01:43] LABS: Troponin I 0.037 ng/mL (< 0.028)
--- NOTE | 2020-09-01 03:43 | PDOC.HHP ---
Hospitalist HPI This is an 89-year-old male patient History of Present Illness: This is an 89-year-old male patient with a history of coronary artery disease, ventricular tachycardia, CVA, recent femoral neck fracture surgery who was brought in by his on account of progressive weakness. Patient has significant hearing difficultieshis gave most of the history. Of note the patient was admitted on account of left femoral fracture and had percutaneous screw fixation on 07/22/2020 and discharged on 07/25/2020. He went to rehab and transition home. However his noted that for the past several days he has become generally weak and had to be held in bed. He has been in bed for the past several days and has been unable to get out. He was brought here for further evaluation. On arrival BP was 142/92, respiratory rate 18, pulse 61, temperature 98.9 and saturating 100% on room air. His labs showed WBC of 9.3 hemoglobin 13.7 and platelets 276. Chemistry showed creatinine of 1.46 which is around his baseline. Urine was essentially negative. Troponin was elevated at 0.046. Chest x-ray showed no acute intratho racic event. Decision was made to admit him based on severe weakness and elevated troponin. Hospitalist team was consulted for admission Allergies/Adverse Reactions: Allergy/AdvReac Type Severity Reaction Status Date / Time morphine Allergy Intermediate AGITATION Verified 09/29/19 12:44 codeine Allergy excessive Verified 09/29/19 12:44 anxiety Chemicals Allergy Uncoded 08/31/20 23:29 Colognes Allergy Uncoded 08/31/20 23:29 Home Medications: Medication Instructions Recorded Confirmed Type Multivitamin [Multivitamins] 1 cap PO DAILY 01/27/13 08/31/20 History Sertraline HCl [Zoloft] 100 mg PO QAM 01/27/13 08/31/20 History Donepezil HCl [Aricept] 10 mg PO HS 02/06/17 08/31/20 History Atorvastatin Calcium 0.5 tab PO HS 06/19/17 08/31/20 History Cyanocobalamin (Vitamin B-12) 1 tab PO DAILY 06/19/17 08/31/20 History [Vitamin B-12] Aspirin 325 mg PO DAILY tab 07/02/17 08/31/20 Rx Folic Acid [Folvite] 1 mg PO DAILY #30 tab 07/12/17 08/31/20 Rx Amiodarone [Cordarone] 100 mg PO QAM 07/22/20 08/31/20 History Ascorbic Acid [Vitamin C] 500 mg PO DAILY 07/22/20 08/31/20 History Cholecalciferol (Vitamin D3) 400 unit PO DAILY 07/22/20 08/31/20 History [Vitamin D] Metoprolol Succinate [Toprol Xl] 50 mg PO HS 07/22/20 08/31/20 History Thyroid,Pork [[place] Thyroid] 60 mg PO DAILY 07/22/20 08/31/20 History Zinc Acetate [Galzin] 50 mg PO DAILY 07/22/20 08/31/20 History levETIRAcetam [Keppra] 750 mg PO BID 07/22/20 08/31/20 History Melatonin 3 mg PO HS PRN tab 07/25/20 08/31/20 Rx Polyethylene Glycol 3350 [Miralax] 17 gm PO DAILY pk 07/25/20 08/31/20 Rx ALPRAZolam [Xanax] 0.25 mg PO HS 08/31/20 08/31/20 History Acetaminophen [Tylenol Regular 650 mg PO Q4HR PRN 08/31/20 08/31/20 History Strength] Sennosides/Docusate Sodium 2 tab PO BID PRN 08/31/20 08/31/20 History [Senokot S] diphenhydrAMINE [Benadryl] 25 mg PO HS 08/31/20 08/31/20 History Past History: PMHx:coronary artery disease, ventricular tachycardia, CVA, PSHx:CABG, left femoral fracture surgery. FHx: None of significant Social: Lives with . No alcohol smoking or illegal drug use history Hospitalist HPI ROS Constitutional: reports: weakness, malaise. denies: fever, chills, sweats Cardiovascular: denies: chest pain, palpitations, orthopnea, paroxysmal noc. dyspnea, edema Gastrointestinal: denies: nausea, vomiting, abdominal pain, diarrhea Genitourinary: denies: dysuria, frequency, incontinence, hematuria Musculoskeletal: denies: neck pain, shoulder pain, arm pain, back pain Neurological: denies: weakness, incoordination, confusion Hospitalist Exam Vitals: Vital Signs (12 hours) Temp Pulse Resp BP Pulse Ox 08/31/20 23:16 98.5 F 74 13 169/77 H 99 Weight Weight 165 lb General - other findings: Awake, generally hard of hearing however not in acute distress Eye: PERRL, anicteric sclera ENT: normocephalic atraumatic, no oropharyngeal lesions Heart: RRR, no murmur, no gallops Respiratory: CTAB, no wheezes, no rales, no ronchi Gastrointestinal: soft, non-tender, non-distended, normal bowel sounds Extremities: no cyanosis, no clubbing, no edema Neurological - other findings: Hearing loss bilaterally, Psychiatric: normal affect, oriented to person Hospitalist Results Result Diagrams: 08/31/20 17:25 08/31/20 17:25 Lab results: Laboratory Last Values WBC 9.3 thou/uL (4.8-10.8) 08/31/20 17: RBC 4.12 mill/uL (4.70-6.10) L 08/31/20 17: Hgb 13.7 g/dL (14.0-18.0) L 08/31/20 17:25 Hct 41.7 % (42.0-52.0) L 08/31/20 17:25 MCV 101.0 fL (78.0-98.0) H 08/31/20 17:25 MCH 33.3 pg (27.0-31.0) H 08/31/20 17:25 MCHC 32.9 g/dL (32.0-36.0) 08/31/20 17:25 RDW 12.4 % (11.5-14.5) 08/31/20 17:25 Plt Count 276 thou/uL (130-400) 08/31/20 17:25 MPV 7.1 fL (7.4-10.4) L 08/31/20 17:25 Neutrophils % 73.3 % (42.0-75.0) 08/31/20 17:25 Lymphocytes % 16.1 % (21.0-51.0) L 08/31/20 17:25 Monocytes % 8.4 % (0.0-10.0) 08/31/20 17: Eosinophils % 1.8 % (0.0-10.0) 08/31/20 17:25 Basophils % 0.5 % (0.0-1.0) 08/31/20 17:25 Neutrophils # 6.8 thou/uL (1.40-6.50) H 08/31/20 17:25 Lymphocytes # 1.5 thou/uL (1.20-3.40) 08/31/20 17:25 Monocytes # 0.8 thou/uL (0.11-0.59) H 08/31/20 17:25 Eosinophils # 0.2 thou/uL (0.0-0.7) 08/31/20 17:25 Basophils # 0.0 thou/uL (0.0-0.2) 08/31/20 17:25 Sodium 140 mmol/L (136-145) 08/31/20 17:25 Potassium 4.5 mmol/L (3.5-5.1) 08/31/20 17:25 Chloride 106 mmol/L (98-107) 08/31/20 17:25 Carbon Dioxide 23 mmol/L (23-31) 08/31/20 17:25 Anion Gap 16 mmol/L (10-20) 08/31/20 17:25 BUN 29 mg/dL (8.4-25.7) H 08/31/20 17:25 Creatinine 1.46 mg/dL (0.7-1.3) H 08/31/20 17:25 Estimated GFR (MDRD) 46 08/31/20 17:25 Glucose 100 mg/dL (83-110) 08/31/20 17:25 Calcium 9.6 mg/dL (7.8-10.44) 08/31/20 17:25 Total Bilirubin 0.4 mg/dL (0.2-1.2) 08/31/20 17:25 AST 23 U/L (5-34) 08/31/20 17:25 ALT 16 U/L (8-55) 08/31/20 17:25 Alkaline Phosphatase 115 U/L (40-110) H 08/31/20 17:25 CK-MB (CK-2) 1.9 ng/mL (0-6.6) 08/31/20 17:25 Troponin I 0.037 ng/mL (< 0.028) H 09/01/20 00:58 Serum Total Protein 7.5 g/dL (5.8-8.1) 08/31/20 17:25 Albumin 3.1 g/dL (3.4-4.8) L 08/31/20 17:25 Globulin 4.4 g/dL (2.4-3.5) H 08/31/20 17:25 Albumin/Globulin Ratio 0.7 g/dL (1.2-2.2) L 08/31/20 17:25 Urine Color Yellow (Yellow) 08/31/20 16:42 Urine Clarity Clear (Clear) 08/31/20 16:42 Urine pH 5.5 (5.0-9.0) 08/31/20 16:42 Ur Specific [place] 1.025 (1.002-1.036) 08/31/20 16:42 Urine Protein 20 mg/dL (Neg-Trace) 08/31/20 16:42 Urine Glucose (UA) Normal mg/dL (Negative) 08/31/20 16:42 Urine Ketones Negative mg/dL (Negative) 08/31/20 16:42 Urine Blood Negative (Negative) 08/31/20 16:42 Urine Nitrite Negative (Negative) 08/31/20 16:42 Urine Bilirubin Negative (Negative) 08/31/20 16:42 Urine Urobilinogen Normal mg/dL (Less than 2) 08/31/20 16:42 Ur Leukocyte Esterase Negative Sharee/uL (Negative) 08/31/20 16:42 Hospitalist H&P A/P Plan: This is a 89-year-old male patient with a history of coronary artery disease this post CABG, recent hip surgery who presents to the ED on account of weakness . Generalized weakness Possibly due to deconditioning We will admit monitor PT evaluation in a.m. Check phosphorus and magnesium Elevated troponin Troponin initially elevated at 0.4 We will trend Given his history of CABG we will monitor closely Consider cardiology evaluation in a.m. CKD Renal function stable Avoid nephrotoxic agent Monitor BMP CAD Status post CABG Continue aspirin statins CODE STATUSfull code [place] prophylaxislevel
[2020-09-01 04:44] LABS: #Eosinphils 0.1 thou/uL (0.0-0.7); #Lymphocytes 1.7 thou/uL (1.20-3.40); #Monocytes 1.2 thou/uL (0.11-0.59); #Neutrophils 9.5 thou/uL (1.40-6.50); %Basophils 0.3 % (0.0-1.0); %Eosinophils 0.5 % (0.0-10.0); %Lymphocytes 13.6 % (21.0-51.0); %Monocytes 9.8 % (0.0-10.0); %Neutrophils 75.8 % (42.0-75.0); Hemoglobin 12.2 g/dL (14.0-18.0); Mean Corpuscular HGB CONC 31.8 g/dL (32.0-36.0); Mean Corpuscular Hemoglobin 31.9 pg (27.0-31.0); Mean Platelet Volume 7.2 fL (7.4-10.4); Platelet Count 287 thou/uL (130-400); RBC Distribution Width 12.1 % (11.5-14.5); Red Blood Cell (RBC) Count 3.82 mill/uL (4.70-6.10); White Blood Cell (WBC) Count 12.5 thou/uL (4.8-10.8)
[2020-09-01 05:05] LABS: Anion Gap 14 mmol/L (10-20); BUN (Urea Nitrogen) 28 mg/dL (8.4-25.7); Calc. Creatinine Clearance 37 mL/min (70-130); Calcium 9.3 mg/dL (7.8-10.44); Carbon Dioxide 22 mmol/L (23-31); Chloride 105 mmol/L (98-107); Glucose 181 mg/dL (83-110); Magnesium 2.1 mg/dL (1.6-2.6); Phosphorus 2.5 mg/dL (2.3-4.7); Potassium 4.1 mmol/L (3.5-5.1); Sodium 137 mmol/L (136-145)
[2020-09-01 05:11] LABS: SARS-CoV-2 PCR by NAA Not Detected (NotDetected)
[2020-09-01] MEDS ORDERED: Senokot S 8.6-50 MG TAB PO PRN (08:31)
[2020-09-01] MEDS ORDERED: Melatonin 3 MG TAB PO PRN (08:31)
[2020-09-01] MEDS ORDERED: Non-Formulary Item 1 EACH (Sertraline Hcl [Zoloft] 20 MG/1 ML Ml) PO SCH (09:00)
[2020-09-01] MEDS ORDERED: Cyanocobalamin (Vitamin B-12) 1,000 MCG TAB PO SCH (09:00)
[2020-09-01] MEDS ORDERED: ZINC ACETATE 50 MG PO SCH (09:00)
[2020-09-01] MEDS ORDERED: Cholecalciferol 10 MCG/ML (Vitamin D3) 50 ML BOT PO SCH (09:00)
[2020-09-01] MEDS ORDERED: Thyroid 60 MG TAB PO SCH (09:00)
[2020-09-01] MEDS ORDERED: Non-Formulary Item 1 EACH (Multivitamin [Multivitamins] 1 CAP Capsule) PO SCH (09:00)
[2020-09-01] MEDS: Cholecalciferol (Vitamin D3) 400 UNITS TAB PO SCH (09:39)
[2020-09-01] MEDS: Cyanocobalamin (Vitamin B-12) 1,000 MCG TAB PO SCH (09:39)
[2020-09-01] MEDS: Ascorbic Acid 500 mg Chewable Tablet PO SCH (09:39)
[2020-09-01] MEDS: Aspirin 325 MG TAB PO SCH (09:39)
[2020-09-01] MEDS: Amiodarone 200 MG TAB PO SCH (09:40)
[2020-09-01] MEDS: levETIRAcetam 500 MG TAB PO SCH ×2 (09:40→19:51)
[2020-09-01] MEDS: Zinc Sulfate 220 MG CAP PO SCH (09:40)
[2020-09-01] MEDS: Multivit, Therapeutic 1 TAB PO SCH (09:41)
[2020-09-01] MEDS: Folic Acid 1 MG TAB PO SCH (09:41)
[2020-09-01] MEDS: Polyethylene Glycol 3350 17 GM Packet PO SCH (09:45)
--- NOTE | 2020-09-01 12:53 | PDOC.HOSPP ---
- Subjective Encounter Date: 09/01/20 Encounter Time: 09:45 Subjective: Talk to his . Patient appears at baseline functional status. He has no complaints. Mildly elevated leukocytosis. Chest x-ray and urine analysis negative for any sign of infection. I had a lengthy conversation with his . She prefers patient to go home with home hospice they follow with the [facility] for home health. She is wondering whether they would be able to arrange home hospice with [facility]. Discussed with the charge nurse. It may not happen today but likely on Thursday. - Objective Vital Signs & Weight: Vital Signs (12 hours) Temp Pulse Resp BP Pulse Ox 09/01/20 12:12 97.9 F 61 21 H 147/69 H 97 09/01/20 07:58 97.3 F L 63 16 149/69 H 95 09/01/20 04:00 98.4 F 74 20 154/76 H 98 Weight Weight 165 lb I&O: 08/31/20 09/01/20 09/02/20 06:59 06:59 06:59 Intake Total 400 Output Total 300 Balance 100 Result Diagrams: 09/01/20 04:03 09/01/20 04:03 Hospitalist ROS - Medication Medications: Active Medications Generic Name Dose Route Start Last Admin Trade Name Freq PRN Reason Stop Dose Admin Amiodarone HCl 100 mg 09/01/20 09:00 09/01/20 09:40 Amiodarone 200 Mg Tab PO 100 mg QAM VICTORINA Administration Ascorbic Acid 500 mg 09/01/20 09:00 09/01/20 09:39 Ascorbic Acid 500 Mg Chewable Tablet PO 500 mg DAILY VICTORINA Administration Aspirin 325 mg 09/01/20 09:00 09/01/20 09:39 Aspirin 325 Mg Tab PO 325 mg DAILY VICTORINA Administration Cholecalciferol 400 units 09/01/20 09:00 09/01/20 09:39 Cholecalciferol (Vitamin D3) 400 Units Tab PO 400 units DAILY VICTORINA Administration Cyanocobalamin 1,000 mcg 09/01/20 09:00 09/01/20 09:39 Cyanocobalamin (Vitamin B-12) 1,000 Mcg Tab PO 1,000 mcg DAILY VICTORINA Administration Folic Acid 1 mg 09/01/20 09:00 09/01/20 09:41 Folic Acid 1 Mg Tab PO 1 mg DAILY VICTORINA Administration Levetiracetam 750 mg 09/01/20 09:00 09/01/20 09:40 Levetiracetam 500 Mg Tab PO 750 mg BID VICTORINA Administration Multivitamins 1 tab 09/01/20 09:00 09/01/20 09:41 Multivit, Therapeutic 1 Tab PO 1 tab DAILY VICTORINA Administration Polyethylene Glycol 17 gm 09/01/20 09:00 09/01/20 09:45 Polyethylene Glycol 3350 17 Gm Packet PO Not Given DAILY VICTORINA Senna/Docusate Sodium 2 tab 09/01/20 08:31 09/01/20 09:54 Senokot S 8.6-50 Mg Tab PO 2 tab BID PRN Administration Constipation Sertraline HCl 100 mg 09/01/20 09:00 09/01/20 09:41 Sertraline Hcl 100 Mg Tab PO 100 mg QAM VICTORINA Administration Zinc Sulfate 220 mg 09/01/20 09:00 09/01/20 09:40 Zinc Sulfate 220 Mg Cap PO 220 mg DAILY VICTORINA Administration Hospitalist Exam Vitals: Vital Signs (12 hours) Temp Pulse Resp BP Pulse Ox 09/01/20 12:12 97.9 F 61 21 H 147/69 H 97 09/01/20 07:58 97.3 F L 63 16 149/69 H 95 09/01/20 04:00 98.4 F 74 20 154/76 H 98 Weight Weight 165 lb General Appearance: NAD, awake alert Eye: PERRL ENT: normocephalic atraumatic Neck: supple Heart: RRR Respiratory: CTAB, normal chest expansion Gastrointestinal: soft, normal bowel sounds Neurological: cranial nerve grossly intact, no focal deficits Psychiatric: normal affect, normal behavior, A&O x 3 Hosp A/P - Plan 89-year-old male patient with a history of coronary artery disease this post CABG, recent hip surgery who presents to the ED on account of weakness. Generalized weakness Possibly due to deconditioning -Ongoing physical therapy Elevated troponin Troponin initially elevated at 0.4 We will trend Given his history of CABG we will monitor closely --I have canceled to the echo that has been ordered as patient is leaning towards home hospice. Also does not require at this time cardiology consult unless clinical situation changes. CKD Renal function stable Avoid nephrotoxic agent Monitor BMP CAD Status post CABG Continue aspirin statins CODE STATUSfull code [place] prophylaxislevel Mildly elevated leukocytosis. Chest x-ray and urine analysis negative for any sign of infection. I had a lengthy conversation with his . She prefers patient to go home with home hospice they follow with the [facility] for home health. She is wondering whether they would be able to arrange home hospice with [facility]. Discussed with the charge nurse. It may not happen today but likely on Thursday.
[2020-09-01] MEDS: ALPRAZolam 0.25 MG TAB PO SCH (19:50)
[2020-09-01] MEDS: diphenhydrAMINE 25 MG CAP PO SCH (19:50)
[2020-09-01] MEDS: Donepezil HCl 10 MG TAB PO SCH (19:51)
[2020-09-01] MEDS: Atorvastatin Calcium 40 MG TAB PO SCH (19:52)
[2020-09-01] MEDS ORDERED: Non-Formulary Item 1 EACH (Atorvastatin Calcium [Atorvastatin Calcium] 80 MG Tablet) PO SCH (21:00)
[2020-09-02] MEDS: Thyroid 60 MG TAB PO SCH (05:45)
[2020-09-02] MEDS: Folic Acid 1 MG TAB PO SCH (09:27)
[2020-09-02] MEDS: Zinc Sulfate 220 MG CAP PO SCH (09:27)
[2020-09-02] MEDS: Cholecalciferol (Vitamin D3) 400 UNITS TAB PO SCH (09:27)
[2020-09-02] MEDS: Amiodarone 200 MG TAB PO SCH (09:27)
[2020-09-02] MEDS: Cyanocobalamin (Vitamin B-12) 1,000 MCG TAB PO SCH (09:27)
[2020-09-02] MEDS: Multivit, Therapeutic 1 TAB PO SCH (09:27)
[2020-09-02] MEDS: Aspirin 325 MG TAB PO SCH (09:27)
[2020-09-02] MEDS: levETIRAcetam 500 MG TAB PO SCH ×2 (09:27→19:46)
[2020-09-02] MEDS: Polyethylene Glycol 3350 17 GM Packet PO SCH (09:27)
[2020-09-02] MEDS: Ascorbic Acid 500 mg Chewable Tablet PO SCH (09:27)
[2020-09-02] MEDS: cefTRIAXone\\ROCEPHIN 1 GM in Sodium Chloride 0.9% 100 ML IVPB SCH (09:45)
[2020-09-02 09:52] LABS: Clarity Extra Turbid (Clear); Leukocyte Large (Negative); Nitrite Positive (Negative); Specific Gravity, Urine 1.019 (1.002-1.036); pH, Urine 1.8 (5.0-9.0)
[2020-09-02 09:53] LABS: Glucose, Urine (Dipstick) Negative (Negative); Ketone, Urine Trace mg/dL (Negative); Protein, Urine (Dipstick) > or equal to 300 mg/dL (Neg-Trace); Urobilinogen 0.2 mg/dL (Less than 2)
[2020-09-02 09:54] LABS: Bacteria/HPF 3+ HPF (None Seen); Bilirubin Unable to Interpret (Negative); Blood, Urine Large (Negative); Squamous Epithelial None Seen HPF (0-3); Triple Phosphate Crystal Rare HPF (None Seen)
[2020-09-02 09:55] LABS: Urine Culture Reflex Yes Yes
--- NOTE | 2020-09-02 12:41 | PDOC.HOSPP ---
- Subjective Encounter Date: 09/02/20 Encounter Time: 09:55 Subjective: Patient testing. His at bedside she states that he did not sleep well. So does she. UA showed bacteriuria nitrate and leukocyte esterase positive. Started him on empiric ceftriaxone will follow with the culture result. - Objective Vital Signs & Weight: Vital Signs (12 hours) Temp Pulse Resp BP Pulse Ox 09/02/20 11:55 97.7 F 71 17 103/57 L 93 L 09/02/20 09:17 98.5 F 73 18 114/63 92 L 09/02/20 04:00 98.3 F 82 20 139/63 90 L Weight Weight 174 lb I&O: 09/01/20 09/02/20 09/03/20 06:59 06:59 06:59 Intake Total 400 240 Output Total 300 50 Balance 100 190 Result Diagrams: 09/01/20 04:03 09/01/20 04:03 Hospitalist ROS - Medication Medications: Active Medications Generic Name Dose Route Start Last Admin Trade Name Freq PRN Reason Stop Dose Admin Alprazolam 0.25 mg 09/01/20 21:00 09/01/20 19:50 Alprazolam 0.25 Mg Tab PO 0.25 mg HS VICTORINA Administration Amiodarone HCl 100 mg 09/01/20 09:00 09/02/20 09:27 Amiodarone 200 Mg Tab PO 100 mg QAM VICTORINA Administration Ascorbic Acid 500 mg 09/01/20 09:00 09/02/20 09:27 Ascorbic Acid 500 Mg Chewable Tablet PO 500 mg DAILY VICTORINA Administration Aspirin 325 mg 09/01/20 09:00 09/02/20 09:27 Aspirin 325 Mg Tab PO 325 mg DAILY VICTORINA Administration Atorvastatin Calcium 40 mg 09/01/20 21:00 09/01/20 19:52 Atorvastatin Calcium 40 Mg Tab PO 40 mg HS VICTORINA Administration Cholecalciferol 400 units 09/01/20 09:00 09/02/20 09:27 Cholecalciferol (Vitamin D3) 400 Units Tab PO 400 units DAILY VICTORINA Administration Cyanocobalamin 1,000 mcg 09/01/20 09:00 09/02/20 09:27 Cyanocobalamin (Vitamin B-12) 1,000 Mcg Tab PO 1,000 mcg DAILY VICTORINA Administration Diphenhydramine HCl 25 mg 09/01/20 21:00 09/01/20 19:50 Diphenhydramine 25 Mg Cap PO 25 mg HS VICTORINA Administration Donepezil HCl 10 mg 09/01/20 21:00 09/01/20 19:51 Donepezil Hcl 10 Mg Tab PO 10 mg HS VICTORINA Administration Folic Acid 1 mg 09/01/20 09:00 09/02/20 09:27 Folic Acid 1 Mg Tab PO 1 mg DAILY VICTORINA Administration Ceftriaxone Sodium 1 gm/ 100 mls @ 200 mls/hr 09/02/20 09:15 09/02/20 09:45 Sodium Chloride IVPB 100 mls Q24HR VICTORINA Administration Levetiracetam 750 mg 09/01/20 09:00 09/02/20 09:27 Levetiracetam 500 Mg Tab PO 750 mg BID VICTORINA Administration Melatonin 3 mg 09/01/20 08:31 09/01/20 23:30 Melatonin 3 Mg Tab PO 3 mg HS PRN Administration Insomnia Metoprolol Succinate 50 mg 09/01/20 21:00 09/01/20 19:51 Metoprolol Succinate Xl 50 Mg Tab PO 50 mg HS VICTORINA Administration Multivitamins 1 tab 09/01/20 09:00 09/02/20 09:27 Multivit, Therapeutic 1 Tab PO 1 tab DAILY VICTORINA Administration Polyethylene Glycol 17 gm 09/01/20 09:00 09/02/20 09:27 Polyethylene Glycol 3350 17 Gm Packet PO Not Given DAILY VICTORINA Senna/Docusate Sodium 2 tab 09/01/20 08:31 09/01/20 09:54 Senokot S 8.6-50 Mg Tab PO 2 tab BID PRN Administration Constipation Sertraline HCl 100 mg 09/01/20 09:00 09/02/20 09:27 Sertraline Hcl 100 Mg Tab PO 100 mg QAM VICTORINA Administration Thyroid 60 mg 09/02/20 06:00 09/02/20 05:45 Thyroid 60 Mg Tab PO 60 mg 0600 VICTORINA Administration Zinc Sulfate 220 mg 09/01/20 09:00 09/02/20 09:27 Zinc Sulfate 220 Mg Cap PO 220 mg DAILY VICTORINA Administration Hospitalist Exam Vitals: Vital Signs (12 hours) Temp Pulse Resp BP Pulse Ox 09/02/20 11:55 97.7 F 71 17 103/57 L 93 L 09/02/20 09:17 98.5 F 73 18 114/63 92 L 09/02/20 04:00 98.3 F 82 20 139/63 90 L Weight Weight 174 lb General Appearance: NAD, awake alert Eye: PERRL ENT: normocephalic atraumatic Neck: supple Heart: RRR, normal peripheral pulses Respiratory: CTAB, normal chest expansion Gastrointestinal: soft, normal bowel sounds Neurological: no focal deficits Psychiatric: A&O x 3 Hosp A/P - Plan 89-year-old male patient with a history of coronary artery disease this post CABG, recent hip surgery who presents to the ED on account of weakness. Generalized weakness Possibly due to deconditioning -Ongoing physical therapy Elevated troponin Troponin initially elevated at 0.4 We will trend Given his history of CABG we will monitor closely --I have canceled to the echo that has been ordered as patient is leaning towards home hospice. Also does not require at this time cardiology consult unless clinical situation changes. CKD Renal function stable Avoid nephrotoxic agent Monitor BMP CAD Status post CABG Continue aspirin statins CODE STATUSfull code [place] prophylaxislevel Mildly elevated leukocytosis. Chest x-ray and urine analysis negative for any sign of infection. I had a lengthy conversation with his . She prefers patient to go home with home hospice they follow with the [facility] for home health. She is wondering whether they would be able to arrange home hospice with [facility]. Discussed with the charge nurse. It may not happen today but likely on Thursday. Probable urinary tract infection -Started him on empiric antibiotic -Await for the culture result and sensitivity
[2020-09-02] MEDS ORDERED: Phenazopyridine HCl 100 MG TAB PO SCH (14:30)
[2020-09-02] MEDS: Phenazopyridine HCl 100 MG TAB PO SCH (18:06)
[2020-09-02] MEDS: diphenhydrAMINE 25 MG CAP PO SCH (19:45)
[2020-09-02] MEDS: Donepezil HCl 10 MG TAB PO SCH (19:45)
[2020-09-02] MEDS: Atorvastatin Calcium 40 MG TAB PO SCH (19:46)
[2020-09-02] MEDS: ALPRAZolam 0.25 MG TAB PO SCH (19:46)
[2020-09-03 04:02] VITALS: BMI 24.3
[2020-09-03] MEDS: Thyroid 60 MG TAB PO SCH (05:11)
[2020-09-03] MEDS: cefTRIAXone\\ROCEPHIN 1 GM in Sodium Chloride 0.9% 100 ML IVPB SCH (09:07)
[2020-09-03] MEDS: Amiodarone 200 MG TAB PO SCH (09:07)
[2020-09-03] MEDS: Polyethylene Glycol 3350 17 GM Packet PO SCH (09:07)
[2020-09-03] MEDS: levETIRAcetam 500 MG TAB PO SCH (09:08)
[2020-09-03] MEDS: Phenazopyridine HCl 100 MG TAB PO SCH ×2 (09:08→13:08)
[2020-09-03] MEDS: Aspirin 325 MG TAB PO SCH (09:09)
[2020-09-03] MEDS: Cholecalciferol (Vitamin D3) 400 UNITS TAB PO SCH (09:09)
[2020-09-03] MEDS: Folic Acid 1 MG TAB PO SCH (09:09)
[2020-09-03] MEDS: Zinc Sulfate 220 MG CAP PO SCH (09:09)
[2020-09-03] MEDS: Ascorbic Acid 500 mg Chewable Tablet PO SCH (09:09)
[2020-09-03] MEDS: Multivit, Therapeutic 1 TAB PO SCH (09:09)
[2020-09-03] MEDS: Cyanocobalamin (Vitamin B-12) 1,000 MCG TAB PO SCH (09:09)
--- NOTE | 2020-09-03 12:15 | PQF ---
CLINICAL DOCUMENTATION CLARIFICATION FORM: Dear DR. Bertin BRIDGES Date: 09/03/2020. 1200 Please exercise your independent, professional judgment in responding to the clarification form. Clinical indicators are provided on the bottom of this form for your review. Please check appropriate box(es): [ ] Type 1 CA (NSTEMI) [ x ] Type 2 CA (T2MI) secondary to: [ ] CAD [ ] CKD [ x ] other and includes patients with Type I & Type 2 CA) [ ] insignificant lab value [ ] Other: [ ] Takotsubo syndrome [ ] Other diagnosis [ ] Unable to determine In addition, please specify: Present on Admission (POA): [ ] Yes [ ] No [ ] Unable to determine For continuity of documentation, please document condition throughout progress notes and discharge summary. Thank You. To be completed by CDI/Coding staff for physician review: CLINICAL INDICATORS - SIGNS / SYMPTOMS / LABS / RESULTS AND LOCATION IN EMR 08/31 Troponin I 0.046. > 0.047. > 0.037 EKG shows junctional rhythm, Final DX: weakness, Elevated Cardiac enzymes ( ED report) 08/31 A/P: elevated Troponin, given history of CABG we will monitor closely, consider cardiology evaluation in am (H&P/Affram) 08/31 Canceled ECHO that has been ordered as patient is leaning towards hospice. Also does not require at this time cardiology consult unless clinical situation changes. ( PN/Natasha) 09/01 RISKS / RESULTS AND LOCATION IN EMR CKD, CAD, advanced age( 89) (H&P/Affram) 08/31 TREATMENTS / RESULTS AND LOCATION IN EMR Serial troponin (08/31, 09/02) Supplemental Oxygen ( 08/16 present) Thank you! CDS Signature: Anu Garcia RN. Phone #: [phone] Date: 09/03/20 1200 This is a permanent part of the Medical Record [facility]
--- NOTE | 2020-09-03 13:02 | PDOC.DS.DS ---
Provider Date of Admission: 08/31/20 19:26 Admitting Provider: Kofi Eason MD Course Hospital Course: 89-year-old male patient with a history of coronary artery disease this post CABG, recent hip surgery who presents to the ED on account of weakness. Generalized weakness - due to deconditioning Elevated troponin Troponin initially elevated at 0.4 --I have canceled the echo that has been ordered as patient is leaning towards home hospice. CKD CAD Status post CABG Continue aspirin statins Mildly elevated leukocytosis. Urinary tract infection -Started him on empiric antibiotic -Culture grew Proteus mirabilis and sensitivity pending. Previous cultures also Proteus but no sensitivity -Generally they are sensitive to cephalosporins so patient received 2 days of ceftriaxone and transition to Keflex to complete the 7-day course. I had a lengthy conversation with his . She prefers patient to go with hospice- they follow with the [facility] for home health. Discussed options of waiting for urine culture sensitivity to come back versus and going home w.. home hospice with empiric antibiotic. states that the doctor for the hospice would be able to check the culture result and guide antibiotic. for now she likes to take him there with hospice. Discharge time over 30 minutes Resuscitation Status: 08/31/20 21:01 Resuscitation Status Routine Resuscitation Status: FULL: Full Resuscitation Lab Results: 09/01/20 04:03 09/01/20 04:03 Abnormal Lab Results - Last 48 hrs 09/02/20 08:55: Urine Color Red A, Urine Clarity Extra Turbid A, Urine pH 1.8 L, Urine Protein > or equal to 300 A, Urine Ketones Trace A, Urine Blood Large A, Urine Nitrite Positive A, Ur Leukocyte Esterase Large H, Urine RBC 4-6 A, Urine WBC 4-6 A, Triple Phos Crystals Rare A, Urine Bacteria 3+ A, Urine Culture Reflexed Yes A Microbiology - Entire Visit 09/02/20 09:55 Urine clean catch Urine Culture - Preliminary Presumptive Proteus mirabilis 08/31/20 17:25 Urine voided Urine Culture - Final Proteus mirabilis 08/31/20 17:28 Venous blood - Left Arm Blood Culture - Preliminary NO GROWTH AT 48 HOURS 08/31/20 17:38 Venous blood - Right Hand Blood Culture - Preliminary NO GROWTH AT 48 HOURS Vitals: Vital Signs (12 hours) Temp Pulse Resp BP Pulse Ox 09/03/20 11:28 98.9 F 61 18 137/63 96 09/03/20 09:06 99.5 F 71 15 149/70 H 91 L 09/03/20 03:58 98.1 F 74 13 156/75 H 93 L Weight Weight 165 lb Physical Exam: The patient was seen and examined on the day of discharge. Patient is having a breakfast his is at bedside helping him. He appears well. Discussed options of waiting for urine culture sensitivity to come back versus and going back to [facility] facility with empiric antibiotic. states that the doctor at the facility would be able to check the culture result and guide antibiotic for now she likes to take him there with hospice. Plan Prescriptions: Cephalexin [Keflex] 250 mg PO BID 7 Days #14 cap Home Medications: Medication Instructions Recorded Confirmed Type Multivitamin [Multivitamins] 1 cap PO DAILY 01/27/13 08/31/20 History Sertraline HCl [Zoloft] 100 mg PO QAM 01/27/13 08/31/20 History Donepezil HCl [Aricept] 10 mg PO HS 02/06/17 08/31/20 History Atorvastatin Calcium 0.5 tab PO HS 06/19/17 08/31/20 History Cyanocobalamin (Vitamin B-12) 1 tab PO DAILY 06/19/17 08/31/20 History [Vitamin B-12] Aspirin 325 mg PO DAILY tab 07/02/17 08/31/20 Rx Folic Acid [Folvite] 1 mg PO DAILY #30 tab 07/12/17 08/31/20 Rx Amiodarone [Cordarone] 100 mg PO QAM 07/22/20 08/31/20 History Ascorbic Acid [Vitamin C] 500 mg PO DAILY 07/22/20 08/31/20 History Cholecalciferol (Vitamin D3) 400 unit PO DAILY 07/22/20 08/31/20 History [Vitamin D] Metoprolol Succinate [Toprol Xl] 50 mg PO HS 07/22/20 08/31/20 History Thyroid,Pork [[place] Thyroid] 60 mg PO DAILY 07/22/20 08/31/20 History Zinc Acetate [Galzin] 50 mg PO DAILY 07/22/20 08/31/20 History levETIRAcetam [Keppra] 750 mg PO BID 07/22/20 08/31/20 History Melatonin 3 mg PO HS PRN tab 07/25/20 08/31/20 Rx Polyethylene Glycol 3350 [Miralax] 17 gm PO DAILY pk 07/25/20 08/31/20 Rx ALPRAZolam [Xanax] 0.25 mg PO HS 08/31/20 08/31/20 History Acetaminophen [Tylenol Regular 650 mg PO Q4HR PRN 08/31/20 08/31/20 History Strength] Sennosides/Docusate Sodium 2 tab PO BID PRN 08/31/20 08/31/20 History [Senokot S] diphenhydrAMINE [Benadryl] 25 mg PO HS 08/31/20 08/31/20 History Cephalexin [Keflex] 250 mg PO BID 7 Days #14 cap 09/03/20 Rx Allergies: morphine Allergy (Intermediate, Verified 09/29/19 12:44) AGITATION codeine Allergy (Verified 09/29/19 12:44) excessive anxiety Chemicals Allergy (Uncoded 08/31/20 23:29) cough Colognes Allergy (Uncoded 08/31/20 23:29) cough Activity:: Activity as Tolerated Nourishment:: Regular Diet Referrals: [facility]) [Outside] (Home with hospice services.) Vick Kc MD [Active] - Disposition: HOSPICE-HOME Quality CORE MEASURES:: N/A
[2020-09-03 15:45] VITALS: BP 140/63; TEMP 98.7
--- NOTE | 2020-09-05 02:14 | PQF ---
Dear : Korey Kaur Date 09/05/2020 Please exercise your independent, professional judgment in responding to the clarification form. Clinical indicators are provided on the bottom of this form for your review Can you please further clarify the diagnosis of the patient? Please check appropriate box(es): [ ] Acute Renal Failure (ARF) / Acute Kidney Injury (LUZMARIA) [ x] Acute on Chronic Renal Failure please specify Stage of CKD ___3 (see below) [ ] CKD without ARF/LUZMARIA please specify Stage of CKD [ ] Other diagnosis, please specify [ ] Unable to determine Physician Signature: Date/Time: For continuity of documentation, please document condition throughout progress notes and discharge summary. Thank You. To be completed by CDI/Coding staff for physician review: Present Clinical Indicators - Signs / Symptoms / Labs Results and Location in Medical Record [ x ] Progressive weakness H and P pg.1 [ x ] Crea: 1.46H, 1.47H Laboratory [ x ] CKD, renal function stable H and P pg.5 [ x ] Generalized weakness possibly due to deconditioning H and P pg.5 [ x ] BUN: 08/31=29 09/01=28 Laboratory 08/31 [ x ] GFR: 08/31=46 09/01=45 Laboratory 08/31 Present Risk Factors Results and Location in Medical Record [ x ] 89 years old H and P pg.1 [ x ] CAD H and P pg.1 [ x ] CVA H and P pg.1 [ x ] UTI DS pg.1 Present Treatments Results and Location in Medical Record [ x ] Avoid nephrotoxic agent H and P pg.5 [ x ] Monitor BMP H and P pg.5 [ x ] IV Fluids MAR CDS/Cd Mixer Helper Signature: Delbertaashish [employer] Geovanyyou Phone #: ext [phone] Date 09/05/2020 This is a permanent part of the Medical Record [facility]
== END 2020-09-03 16:55 | disposition hospice, home (50) | DRG 682 ==
LOC: ERS 16:35 → 2NO 19:26
PROVIDERS: ADMIT Student in an Organized Health Care Education/Training Program; ATTEND Internal Medicine
DX: N17.9 Acute kidney failure, unspecified (principal); I21.A1 Myocardial infarction type 2; N39.0 Urinary tract infection, site not specified; I69.954 Hemiplegia and hemiparesis following unspecified cerebrovascular disease affecting left non-dominant side; Z20.822 Contact with and (suspected) exposure to COVID-19; I25.10 Atherosclerotic heart disease of native coronary artery without angina pectoris; B96.4 Proteus (mirabilis) (morganii) as the cause of diseases classified elsewhere; D72.829 Elevated white blood cell count, unspecified; Z95.1 Presence of aortocoronary bypass graft; Z88.5 Allergy status to narcotic agent; Z88.8 Allergy status to other drugs, medicaments and biological substances; Z79.82 Long term (current) use of aspirin; Z79.899 Other long term (current) drug therapy; N18.30 Chronic kidney disease, stage 3 unspecified
CPT/HCPCS: 36415; 71045; 80048; 80053; 81001; 81003; 82553; 83735; 84100; 84484; 85025; 87040; 87077; 87086; 87186; 87635; 93005; J0696; J3490; Q0163; U0003; U0005